=== PATIENT | male | born 1935 | race African-American/Black ===

== ENCOUNTER 2017-10-30 18:34 | Inpatient (IN) | payer MEDICARE, OTHER ==
[~2017-10-30 18:34] MED LIST: ISOVUE-370 76%-LOCM 1 ML ONE
[2017-10-30 18:51] LABS: #Eosinphils 0.1 thou/uL (0.0-0.7); #Lymphocytes 2.9 thou/uL (1.20-3.40); #Monocytes 0.7 thou/uL (0.11-0.59); #Neutrophils 4.3 thou/uL (1.40-6.50); %Basophils 0.6 % (0.0-1.0); %Lymphocytes 36.4 % (21.0-51.0); %Monocytes 8.3 % (0.0-10.0); %Neutrophils 53.6 % (42.0-75.0); Hemoglobin 11.6 g/dL (14.0-18.0); Mean Corpuscular HGB CONC 32.7 g/dL (32.0-36.0); Mean Corpuscular Hemoglobin 28.2 pg (27.0-31.0); Mean Corpuscular Volume 86.5 fl (80.0-94.0); Mean Platelet Volume 9.6 fL (7.4-10.4); Platelet Count 218 thou/uL (130-400); RBC Distribution Width 14.3 % (11.5-14.5); Red Blood Cell (RBC) Count 4.12 mill/uL (4.70-6.10)
[2017-10-30 18:58] LABS: INR-International Normal Ratio 1.1; Prothrombin Time 14.5 SEC (12.0-14.7)
[2017-10-30 19:05] LABS: ALT (SGPT) 27 U/L (8-55); AST (SGOT) 23 U/L (5-34); Albumin 4.1 g/dL (3.4-4.8); Alkaline Phosphatase 164 U/L (40-150); Anion Gap 14 mmol/L (10-20); BUN (Urea Nitrogen) 11 mg/dL (8.4-25.7); Bilirubin, Total 0.3 mg/dL (0.2-1.2); Calc. Creatinine Clearance 0 mL/min (70-130); Calcium 9.3 mg/dL (7.8-10.44); Carbon Dioxide 25 mmol/L (23-31); Chloride 99 mmol/L (98-107); Estimated GFR-MDRD 68; Globulin 3.5 g/dL (2.4-3.5); Potassium 4.5 mmol/L (3.5-5.1); Protein, Total 7.6 g/dL (5.8-8.1); Sodium 133 mmol/L (136-145)
[2017-10-30 19:08] LABS: PTT 20.5 SEC (22.9-36.1)
[2017-10-30 19:10] LABS: CKMB 1.6 ng/mL (0-6.6); Glucose 578 mg/dL (83-110); Troponin I 0.013 ng/mL (< 0.028)
--- NOTE | 2017-10-30 19:49 | CT ---
NONCONTRAST CT HEAD 10/30/17 HISTORY: Stroke activation, slurred speech, dysphasia, mental status change. Right facial droop. COMPARISON: 12/30/09. FINDINGS: There is decreased attenuation of the periventricular white matter which is nonspecific but likely re flective of chronic small vessel ischemic changes. There is a subcentimeter low density focus in the left thalamus suggesting a lacunar infarction of indeterminate age. There is focus of decreased atten uation inferior aspect of each basal ganglia also present on prior exam probably related to small rem ote lacunar infarctions. There is no evidence of an acute cortical infarction, hemorrhage, mass effec t or midline shift. There is mild cerebral volume loss. The ventricular system is normal in size, sha pe and position for the degree of sulcal atrophy. The visualized paranasal sinuses and mastoid air cells are clear. The calvarial structures are intact . IMPRESSION: 1. Small lacunar infarction left thalamus of indeterminate age. 2. No acute cortical infarction or hemorrhage. 3. Cerebral volume loss. Above findings discussed with Dr. Valenzuela in the Emergency Department on 10/30/17 at 1849 hours. POS: [facility]
[2017-10-30 20:16] LABS: Bilirubin Negative (Negative); Blood, Urine Trace (Negative); Clarity CLEAR (Clear); Glucose, Urine (Dipstick) >=1000 mg/dL (Negative); Leukocyte Moderate (Negative); Nitrite Negative (Negative); Protein, Urine (Dipstick) Negative (Neg-Trace); Specific Gravity, Urine 1.037 (1.002-1.036); Urobilinogen 0.2 mg/dL (0.2-1.0); pH, Urine 7.5 (5.0-9.0)
[2017-10-30 20:18] LABS: Bacteria/HPF None Seen HPF (None Seen); Hyaline Casts/LPF 0-3 HYALINE CAST LPF (0-3 Hyaline); RBC/HPF 0-3 HPF (0-3); Squamous Epithelial 0-3 HPF (0-3)
[2017-10-30 20:19] LABS: Yeast-AUWi Flag 598.2 (0-25.0)
--- NOTE | 2017-10-30 20:25 | RAD ---
PORTABLE AP CHEST X-RAY: 10/30/17 HISTORY: Altered mental status. Stroke alert. COMPARISON: 12/30/09. FINDINGS: The cardiac silhouette is magnified by projection but does appear mildly enlarged but is stable in si ze from prior study. Thoracic aorta is ectatic. Pulmonary vasculature is within normal limits and the lungs are clear. Degenerative changes are present in the spine. No other interval change. IMPRESSION: 1. No acute cardiopulmonary process. 2. Mild cardiomegaly. 3. Ectasia of the thoracic aorta. POS: [facility]
[2017-10-30 20:26] LABS: Yeast-All Forms 3+ HPF (None Seen)
[2017-10-30 20:35] LABS: Base Excess-Venous 0.9 mmol/L (0 (+/- 2.5)); Bicarbonate (HCO3v) 26.3 mmol/L (1.0-85.0); Calcium, Ionized 1.02 mmol/L (1.12-1.32); Hemoglobin - Calc 13.4 g/dL (12.0-18.0); O2 Tension (PvO2) 19.2 mmHg (35.0-45.0); Potassium 4.1 mmol/L (3.4-4.7); T. Carbon Dioxide 27.7 mmol/L (1.0-85.0); pH (Venous) 7.386 (7.35-7.45); vO2 Saturation-calc 28.8 % (94-98)
[2017-10-30] MEDS ORDERED: Labetalol HCl 100 MG/20 ML VIAL ONE (20:48)
[2017-10-30] MEDS ORDERED: Insulin Regular 300 UNITS/3 ML VIAL ONE (21:21)
[2017-10-31 00:06] VITALS: BMI 33.4
[2017-10-31] MEDS ORDERED: Dextrose 50% Abboject 50 ML SYRINGE SLOW IVP PRN (01:44)
[2017-10-31] MEDS ORDERED: Dextrose 5% in Water 1,000 ML IV PRN (01:44)
[2017-10-31] MEDS ORDERED: Insulin Regular 300 UNITS/3 ML VIAL SC PRN (01:44)
[2017-10-31] MEDS ORDERED: Sodium Chloride 0.45% 1,000 ML IV SCH (01:45)
--- NOTE | 2017-10-31 02:12 | PDOC.FPRHP ---
- History of Present Illness Chief Complaint: AMS History of Present Illness: Patient is a pleasant 82yo AA M with PMH of CVA (2014), HTN, HLD, Alzheimers Dementia, Seizure DO, and prostate cancer diagnosed 1 year ago presents with AMS. Family reports patient has been steadily declining in his memory over the past 2 years, but since October 10 has made a rapid decline. He was seen by his PCP for acute decline and started on Risperdal, but per granddelano who is skin therapist, there has been no change since starting this medication. In fact, he has started drooling and becoming more confused. Family reports his mentation waxes and wanes. Due to patients difficult behavior with confusion ( trying to leave the house at night, pulling out drawers and looking through them , becoming lost, getting agitated), patient is staying with sister at this time. This morning around 8 or 9am, sister noticed some slowed and slurred speech which brought them to the ED. On arrival to the ED, a mild LT sided facial droop was noticed. Family reports some increased urination as well as the confusion, and slurred speech. They deny fevers, cough, increased thirst, recent prostate instrumentation, constipation, N/V, and diarrhea. ED Course: In the ED, patient was given ASA 324mg, Labetalol 20mg, and had a negative brain CT and CTA. He was found to have a blood sugar of 578 and received 8units of Humulin R and 1L NS. He was also given 1g Rocephin. - Allergies/Adverse Reactions Allergies Allergy/AdvReac Type Severity Reaction Status Date / Time No Known Allergies Allergy Unverified 10/31/17 00:21 - Home Medications Medication Instructions Recorded Confirmed Type Amlodipine Besylate [amLODIPine 10 mg PO DAILY 10/31/17 10/31/17 History Besylate] Atorvastatin Calcium [Lipitor] 10 mg PO DAILY 10/31/17 10/31/17 History Celecoxib 200 mg PO BID 10/31/17 10/31/17 History Cetirizine HCl [Zyrtec] 10 mg PO DAILY 10/31/17 10/31/17 History Finasteride 5 mg PO HS 10/31/17 10/31/17 History Furosemide [Lasix] 20 mg PO DAILY 10/31/17 10/31/17 History Levetiracetam [levETIRAcetam] 500 mg PO Q12H 10/31/17 10/31/17 History Metoprolol Tartrate 50 mg PO BID 10/31/17 10/31/17 History Pantoprazole [Protonix] 40 mg PO DAILY 10/31/17 10/31/17 History Phenytoin Sodium Extended 3 tab PO HS 10/31/17 10/31/17 History [Dilantin] Potassium Chloride [Klor-Con 10] 1 tab PO DAILY 10/31/17 10/31/17 History Tamsulosin HCl [Flomax] 0.4 mg PO HS 10/31/17 10/31/17 History Telmisartan 80 mg PO DAILY 10/31/17 10/31/17 History risperiDONE [RisperDAL] 0.5 mg PO BID 10/31/17 10/31/17 History - History PMHx: 1. Alzheimers Dementia 2. Hx of Meningitis 3. Hx of CVA (2014) 4. HLD 5. HTN 6. Prostate Cancer 7. Seizure D/O PSHx: 1. L hip 2. Carpal Tunnel 3. Prostate Biopsy FHx: unkown Social: Denies tobacco, etoh, and drug use. - Review of Systems ROS unobtainable: due to mental status (difficult to obtain from patient. ROS obtained from family.) General: denies: fever/chills, weight/appetite/sleep changes, night sweats, fatigue ENT: denies: nasal congestion, rhinorrhea Respiratory: denies: cough, congestion, shortness of breath Cardiovascular: denies: chest pain, palpitation Gastrointestinal: denies: nausea, vomiting, diarrhea, constipation, abdominal pain Genitourinary: denies: incontinence Skin: denies: rashes, lesions Musculoskeletal: denies: pain, tenderness, stiffness, swelling Neurological: denies: numbness, syncope Psychological: denies: anxiety, depression - Vital signs BP: 224/86 HR: 80 RR: 26 Tmax: 97.6 Pox: 98% on RA Wt: 108.5kg - Physical Exam -Constitutional: AOx2, fidgeting with cords, hospital gown, and bed railing, unable to sit still , hard of hearing even with hearing aids in place, follows commands after repeating greater than 3-4 times, slowed slurred speech. HEENT: normocephalic and atraumatic, PERRLA, EOMI, no scleral icterus, grossly normal vision, MMM Neck: supple, FROM Heart: RRR, normal S1/S2, pulses present Lungs: CTAB, no respiratory distress, no wheezing Abdomen: soft, non-tender -Abdomen: Rectal Exam: stool in rectal vault, no tenderness with palpation of the prostate Musculoskeletal: normal structure, normal tone Neurological: no focal deficit, CN II-XII intact, normal sensation -Neurological: strength 5/5 in UE and LE, neuro exam difficult to perform as patient has trouble hearing directions and following directions. No facial droop noted. Skin: no rash/lesions, capillary refill <2 seconds Heme/Lymphatic: no unusual bruising or bleeding -Psychiatric: Confused but no agitation. FMR H&P: Results - Labs Result Diagrams: 10/30/17 18:46 10/31/17 03:04 Lab results: WBC 8.0 thou/uL (4.8-10.8) 10/30/17 18:46 Hgb 11.6 g/dL (14.0-18.0) L 10/30/17 18:46 Hct 35.6 % (42.0-52.0) L 10/30/17 18:46 MCV 86.5 fl (80.0-94.0) 10/30/17 18:46 Plt Count 218 thou/uL (130-400) 10/30/17 18:46 Neutrophils % 53.6 % (42.0-75.0) 10/30/17 18:46 VBG pCO2 44.0 mmHg (41.0-51.0) 10/30/17 20:34 VBG pO2 19.2 mmHg (35.0-45.0) L 10/30/17 20:34 Sodium 133 mmol/L (136-145) L 10/30/17 18:46 Potassium 4.5 mmol/L (3.5-5.1) 10/30/17 18:46 Chloride 99 mmol/L (98-107) 10/30/17 18:46 Carbon Dioxide 25 mmol/L (23-31) 10/30/17 18:46 BUN 11 mg/dL (8.4-25.7) 10/30/17 18:46 Creatinine 1.23 mg/dL (0.6-1.3) 10/30/17 18:46 Glucose 578 mg/dL (83-110) H* 10/30/17 18:46 Calcium 9.3 mg/dL (7.8-10.44) 10/30/17 18:46 Total Bilirubin 0.3 mg/dL (0.2-1.2) 10/30/17 18:46 AST 23 U/L (5-34) 10/30/17 18:46 ALT 27 U/L (8-55) 10/30/17 18:46 Alkaline Phosphatase 164 U/L (40-150) H 10/30/17 18:46 CK-MB (CK-2) 1.6 ng/mL (0-6.6) 10/30/17 18:46 Serum Total Protein 7.6 g/dL (5.8-8.1) 10/30/17 18:46 Albumin 4.1 g/dL (3.4-4.8) 10/30/17 18:46 Urine Ketones Trace mg/dL (Negative) H 10/30/17 19:57 Urine Blood Trace (Negative) H 10/30/17 19:57 Urine Nitrite Negative (Negative) 10/30/17 19:57 Ur Leukocyte Esterase Moderate (Negative) H 10/30/17 19:57 Urine RBC 0-3 HPF (0-3) 10/30/17 19:57 Urine WBC 11-20 HPF (0-3) H 10/30/17 19:57 Ur Squamous Epith Cells 0-3 HPF (0-3) 10/30/17 19:57 Urine Bacteria None Seen HPF (None Seen) 10/30/17 19:57 - EKG Interpretation EKG: normal sinus rhythm - Radiology Interpretation CT scan - head Status: image reviewed by me, report reviewed by me Additional comment: Small lacunar infarct of thalamus, age indeterminate and overall cerebral volume loss. CTA head and neck pending. Chest x-ray Status: image reviewed by me, report reviewed by me Additional comment: CXR with no acute findings, only ectasia of thoracic aorta and mild cardiomegaly FMR H&P: A/P - Problem List (1) Altered mental status Current Visit: Yes Status: Acute Code(s): R41.82 - ALTERED MENTAL STATUS, UNSPECIFIED (2) Hyperglycemia Current Visit: Yes Status: Acute Code(s): R73.9 - HYPERGLYCEMIA, UNSPECIFIED (3) Pyuria, sterile Current Visit: Yes Status: Acute Code(s): N39.0 - URINARY TRACT INFECTION, SITE NOT SPECIFIED (4) Alzheimer's dementia Current Visit: Yes Status: Chronic Code(s): G30.9 - ALZHEIMER'S DISEASE, UNSPECIFIED; F02.80 - DEMENTIA IN OTH DISEASES CLASSD ELSWHR W/O BEHAVRL DISTURB (5) Seizure disorder Current Visit: Yes Status: Chronic Code(s): G40.909 - EPILEPSY, UNSP, NOT INTRACTABLE, WITHOUT STATUS EPILEPTICUS (6) History of CVA (cerebrovascular accident) Current Visit: Yes Status: Chronic Code(s): Z86.73 - PRSNL HX OF TIA (TIA), AND CEREB INFRC W/O RESID DEFICITS (7) Hyperlipidemia Current Visit: Yes Status: Chronic Code(s): E78.5 - HYPERLIPIDEMIA, UNSPECIFIED (8) Hypertension Current Visit: Yes Status: Chronic Code(s): I10 - ESSENTIAL (PRIMARY) HYPERTENSION (9) Prostate cancer Current Visit: Yes Status: Chronic Code(s): C61 - MALIGNANT NEOPLASM OF PROSTATE - Plan AMS - Unknown etiology at this point but Ddx includes acute delirium on chronic Alzheimers Disease, CVA vs TIA, Infection, Medication Side-effect, and Hyperglycemia induced Metabolic Encephalopathy. - Patient with no hx of DM, but per family diagnosed with pre-diabetes last year. Has never been on medication for pre-diabetes. A1c to evaluate. No anion gap, but will check beta-hydroxybutyrate. S/p 8units of Humulin R, will get accuchecks q4h and start moderate SSI. - Blood cx, Urine cx pending. S/p 1g Rocephin. No signs of infection at this time. Will continue to monitor and if becomes febrile start broad spectrum abx - CThead only with old CVA, CTA negative. Will get MRI tomorrow. Patient without facial droop on exam, but does have significant slowed, slurred speech, a change from baseline per family. Will allow for permissive HTN for 24h. - Patient with new environment and waxing and waning confusion suggestive of at least a component of acute delirium. Will keep shades open during the day, limit monitors and lines, and reorient to prevent worsening delirium. - Patient with recent addition of Risperdal and family reports worsening since that time and facial drooling. Hold Risperdal and monitor. Hyperglycemia - as above Sterile Pyuria - no s/sx of infection, will get urine cx. HLD - continue home medication - FLP HTN - allow for permissive HTN for 24hrs then restart home meds Prostate CA - follows with outpatient urology Seizure DO - check keppra level - continue home keppra and phenytoin Alzheimers Disease Hx of CVA - should be on daily ASA Code status: Full PPx: lovenox FMR H&P: Upper Level - Pertinent history Mr. Donnelly is a pleasant 82yo AAM with PMHx of Alzheimers dementia, HTN, HLD, hx of CVA (3yrs ago) and prostate ca diagnosed about 1yr ago who presents with altered mental status. Daughter at bedside who reports that he has had worsening confusion since 10/10. Seen by PCP due to worsening confusion and started on Risperdal. He lives with granddaughter and talked with her via phone who states that she has not noticed any improvement since starting medication. In addition, family reports that his confusion waxes and wanes. He will be normal for 3-4 days and then he gets confused again. This AM, he started having difficulty with speech and then upon presentation to ED it was noticed that he had a LT sided facial droop. In the ED given: 1.Labetolol 20mg IV 2.1L bolus of NS 3.ASA 324mg 4.Humulin 8u 5.Rocephin 1g - Pertinent findings Gen: pleasant gentleman, hard of hearing, AAOx2 (himself and time) Eyes: EOMI, PERRL CV: S1 S2, RRR Lungs: CTAB Abd: nt/nd/bs+ Ext: slight edema BL Neuro: difficult to assess due to altered mentation but CN 2-12 intact, 5/5 BL UE/LE strength Glucose: 578 UA: mod leuks, WBC 11-20 CT Head: small lacunar infarct of thalamus indeter age, no acute infarction/ hemorrhage - Plan Date/Time: 10/31/17 0212 1. AMS likely 2/2 TIA vs. CVA vs. Delirium vs. worsening dementia vs. medication SE from Risperdal. Patient with 2yr hx of Alzheimers dementia and family reports worsening confusion since 10/10. Seen by PCP for further evaluation and started on Risperdal a few weeks ago. Mentation has not improved. Hx seems more consistent with delirium as they report waxing and waning. Patient was brought from his daughters home which is a new environment for him as he normally lives at home with his granddaughter. In addition, risperdal could be contributing to the picture. UA negative for infection. CT head negative for acute process but showed small lacunar thalamus infarct. CTA head/neck negative- report pending. Cont ASA and statin. Obtain echo and carotid dopplers. Allow for 24hrs permissive HTN. ABCD2 score of 5 placing patient at moderate risk for CVA. Obtain MRI. 2. Hypertensive urgency: allow for 24hrs permissive HTN for BP< 220/110. Re- start home meds after 24hrs. 3. Hyperglycemia: no diagnosis of diabetes though family reports he is borderline. Given humulin in ED. Obtain A1c and betahydroxy. Accuchecks ACHS and SSI. 4. Sterile pyuria: Pt given Rocephin in the ED for treatment of UTI; however, do not suspect infectious etiology as there are no nitrates or bacteria. Patient is asymptomatic. Hold abx until urine cx results. 5. Low TSH: obtain T3/T4. 6. Seizures: cont home meds 7. PPx: lovenox 8. Diet: HH/CC 9. Code status: Full I, Eleanor Ramírez, have evaluated this patient and agree with findings/ plan as outlined by design engineering intern resident. Pertinent changes/additions are listed here. Attending Addendum - Attending Addendum Date/Time: 10/31/17 1002 I personally evaluated the patient and discussed the management with Dr. Zapata. I agree with the History, Examination, Assessment and Plan documented above with any addition or exceptions noted below. The patient was admitted with altered mental status and reportedly had a facial droop in the ER. I did not see a facial droop but neuro exam was limited due being severely hard of hearing and thus not following commands well. The patient was noted to have significant hyperglycemia and is being started on medication. MRI results are pending this morning and echo will be done as well. Hold antipsychotics. 3+ yeast on UA, will treat.
[2017-10-31 03:19] LABS: Hemoglobin A1c 11.2 % (4.0-6.0)
[2017-10-31 03:29] LABS: Anion Gap 13 mmol/L (10-20); BUN (Urea Nitrogen) 7 mg/dL (8.4-25.7); Calc. Creatinine Clearance 100 mL/min (70-130); Calcium 9.1 mg/dL (7.8-10.44); Carbon Dioxide 25 mmol/L (23-31); Chloride 100 mmol/L (98-107); Estimated GFR-MDRD Greater than 90; Glucose 295 mg/dL (83-110); Potassium 3.6 mmol/L (3.5-5.1); Sodium 134 mmol/L (136-145)
[2017-10-31] MEDS: HumaLOG 300 UNITS/3 ML VIAL SC PRN ×3 (06:19→17:08)
[2017-10-31] MEDS: Sodium Chloride 0.9% 1,000 ML IV SCH ×4 (06:19→23:40)
[2017-10-31 06:33] LABS: Cardiac Risk 3.3 (Less than 4.5)
--- NOTE | 2017-10-31 07:40 | CT ---
CT ANGIOGRAM HEAD WITH IV CONTRAST AND 3D RECONSTRUCTIONS CT ANGIOGRAM NECK WITH IV CONTRAST AND 3D RECONSTRUCTIONS 10/30/17 HISTORY: Slurred speech, dysphasia, mental status changes, right facial droop. CT ANGIOGRAM NECK: There is a normal arrangement of the great vessels at the aortic arch which do appear patent. Vascula r calcifications are seen in the aortic arch and involving the origin of the left subclavian artery. Mild atherosclerotic plaque involving these vessels. The proximal left common carotid artery and a po rtion of the left subclavian artery are not well visualized due to dense contrast within the left inn ominate and subclavian veins. The right subclavian artery is patent. The innominate artery and right common carotid artery are widely patient. The visualized left common carotid artery is patent as well . There is mild atherosclerotic calcifications involving the origins of each internal carotid artery, b ut the internal carotid arteries are patent bilaterally. The left vertebral artery demonstrates critical stenosis at the origin and proximally with only faint enhancement of a portion of the left vertebral artery and again at the level of the C2 vertebral bod y. The left vertebral artery is not well visualized. The right vertebral artery is dominant and paten t to the level of the skull base, but there is a prominent calcification seen in the most distal righ t vertebral artery near the origin of the basilar artery and this portion of the artery is not well v isualized. The basilar artery is irregular with mild degrees of narrowing related to atherosclerotic irregularity and narrowing. The bilateral posterior cerebral arteries do appear patent although small in size. The bilateral external carotid arteries are patent. The visualized upper lobes are clear. Multilevel degenerative changes are seen in the cervical spine. There is minimal mucosal thickening in the bilateral maxillary antra. Mastoid air cells are clear. No other findings. IMPRESSION: 1. 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 The right vertebra l artery is dominant and patent, but the most distal right vertebral artery is not visualized due den se and prominent vascular calcification. 2. Atherosclerotic irregularity and narrowing involving the basilar artery. 3. Patent bilateral internal carotid arteries. CT ANGIOGRAM BRAIN: FINDINGS: As described on CTA of the neck above, there is a dense vascular calcification involving the distal r ight vertebral artery with atherosclerotic narrowing involving the basilar artery. Posterior cerebral arteries are patent but are small in caliber. There are atherosclerotic vascular calcifications in the carotid siphons, but with narrowing involvin g the most proximal portion of the cavernous segment of the left internal carotid artery with what ap pears to be severe narrowing in this region. Most proximal portion of the cavernous segment of the le ft internal carotid artery near the junction with the petrous segment. There is flow distal to this a nd the remainder of the cavernous portion of the left internal carotid artery appears patent. The dis pratima right internal carotid artery is patent. The bilateral middle cerebral and anterior cerebral broderick mushtaq are patent. No aneurysm is seen within the limitations of the technique of this exam. IMPRESSION: 1. Focal severe stenosis involving the most proximal cavernous segment of the left internal hernandez tid artery with eccentric atherosclerotic plaque present. The distal right internal carotid artery is patent. 2. Atherosclerotic irregularity and narrowing involving the basilar artery. 3. Nonvisualization of a short segment of the most distal right vertebral artery due to a promin ent calcification. The left vertebral artery is not visualized at the base of the brain, and there is critical stenosis involving the origin of the proximal left vertebral artery noted on CTA of the nec k. 4. Patent bilateral middle cerebral and anterior cerebral arteries. 5. Above findings discussed with Dr. Valenzuela in the Emergency Department on 10/30/17 at 1929 hour s. POS: [facility]
[2017-10-31] MEDS ORDERED: Prevnar 13-Val Conj/PF 0.5 ML SYRINGE IM ONE (09:00)
[2017-10-31] MEDS: Acetaminophen 325 MG TAB PO PRN ×2 (10:37→14:36)
[2017-10-31] MEDS: metFORMIN 500 MG TAB PO SCH ×2 (10:38→17:08)
[2017-10-31] MEDS: Cetirizine HCl 10 MG TAB PO SCH (10:38)
[2017-10-31] MEDS: Enoxaparin Sodium 40 MG/0.4 ML SYRINGE SC SCH (10:38)
[2017-10-31] MEDS: Potassium Chloride 10 MEQ TAB PO SCH (10:38)
[2017-10-31] MEDS: levETIRAcetam 500 MG TAB PO SCH ×2 (10:39→22:42)
[2017-10-31] MEDS: Furosemide 20 MG TAB PO SCH (10:39)
--- NOTE | 2017-10-31 11:37 | MRI ---
BRAIN MRI WITHOUT CONTRAST: Date: 10/31/17 COMPARISON: None. HISTORY: Right-sided facial droop, slurred speech, dysphagia, and mental status changes. TECHNIQUE: Multiplanar, multisequence MR imaging of the brain obtained without contrast. FINDINGS: The diffusion-weighted imaging demonstrates no evidence for acute infarction. The axial gradient echo imaging demonstrates no evidence for intracranial hemorrhage. Arterial flow-v oids at the axial level of the skull base demonstrate an attenuated distal left vertebral artery whic h may be hypoplastic. Arterial flow-voids at the axial level of the skull base appear grossly unremar kable otherwise. There is extensive periventricular T2 and FLAIR hyperintensity, evidence of small vessel disease. Reg ional bone marrow signal intensity appears grossly unremarkable. There is degenerative change at the atlantoaxial interspace. Imaged paranasal sinuses/mastoid air cells appear grossly unremarkable. IMPRESSION: No evidence for acute infarction or intracranial hemorrhage. Small vessel disease. POS: [facility]
[2017-10-31] MEDS ORDERED: Fluconazole 100 MG TAB PO SCH (13:30)
[2017-10-31] MEDS ORDERED: Insulin Regular 300 UNITS/3 ML VIAL SC SCH ×2 (16:45→18:15)
[2017-10-31] MEDS: Atorvastatin Calcium 40 MG TAB PO SCH (22:42)
[2017-10-31] MEDS: Tamsulosin HCl 0.4 MG CAP PO SCH (22:42)
[2017-10-31] MEDS: Finasteride 5 MG TAB PO SCH (22:42)
[2017-11-01] MEDS: Sodium Chloride 0.9% 1,000 ML IV SCH ×2 (01:19→09:25)
[2017-11-01] MEDS ORDERED: hydrALAZINE 20 MG/ML VIAL SLOW IVP PRN (04:31)
[2017-11-01] MEDS ORDERED: Labetalol HCl 100 MG/20 ML VIAL SLOW IVP PRN (04:31)
[2017-11-01 05:44] LABS: Anion Gap 11 mmol/L (10-20); BUN (Urea Nitrogen) 6 mg/dL (8.4-25.7); Calc. Creatinine Clearance 110 mL/min (70-130); Calcium 8.7 mg/dL (7.8-10.44); Carbon Dioxide 22 mmol/L (23-31); Chloride 107 mmol/L (98-107); Estimated GFR-MDRD Greater than 90; Glucose 182 mg/dL (83-110); Potassium 3.4 mmol/L (3.5-5.1); Sodium 137 mmol/L (136-145)
--- NOTE | 2017-11-01 07:16 | PDOC.FM ---
- Subjective Subjective: Pt doing well. Denies any complaints. Denies any pain. Pt A&Ox1. Sister in the room and says that he is back to his baseline and doing much better. Denies any acute events overnight. No other questions or concerns at this time. - Objective MAR Reviewed: Yes Vital Signs & Weight: Vital Signs (12 hours) Temp Pulse Resp BP Pulse Ox 11/01/17 04:50 92 11/01/17 04:25 98.4 F 92 16 200/75 H 95 11/01/17 00:00 97.6 F 89 22 H 207/83 H 99 10/31/17 20:00 97.6 F 89 22 H 203/83 H 99 Result Diagrams: 10/30/17 18:46 11/01/17 05:19 Radiology Reviewed by me: Yes (Brain MRI negative) <Wilfred Granger - Last Filed: 11/01/17 07:15> - Objective Vital Signs & Weight: Vital Signs (12 hours) Temp Pulse Resp BP BP BP Pulse Ox 11/01/17 11:45 98 F 86 18 158/74 H 95 11/01/17 10:50 160/64 H 11/01/17 09:32 111 H 193/77 H 11/01/17 09:29 111 H 192/77 H 11/01/17 08:45 98.3 F 111 H 16 96 11/01/17 08:00 98.3 F 93 16 157/93 H 96 11/01/17 04:50 92 11/01/17 04:25 98.4 F 92 16 200/75 H 95 Result Diagrams: 10/30/17 18:46 11/01/17 05:19 <Rosa M Schwarz - Last Filed: 11/01/17 12:43> Phys Exam - Physical Examination Constitutional: NAD HEENT: PERRLA, moist MMs Neck: no nodes, no JVD, full ROM Respiratory: no wheezing, no rales, no rhonchi, clear to auscultation bilateral Cardiovascular: RRR, no significant murmur, no rub Gastrointestinal: soft, non-tender, no distention, positive bowel sounds Musculoskeletal: no edema, pulses present Neurological: non-focal, normal sensation, moves all 4 limbs hard to assess because he has hard of hearing, no facial droop Lymphatic: no nodes Psychiatric: normal affect Skin: no rash, normal turgor, cap refill <2 seconds <Wilfred Granger - Last Filed: 11/01/17 07:15> Dx/Plan (1) Altered mental status Code(s): R41.82 - ALTERED MENTAL STATUS, UNSPECIFIED Status: Acute (2) Diabetes mellitus Code(s): E11.9 - TYPE 2 DIABETES MELLITUS WITHOUT COMPLICATIONS Status: Acute (3) Hyperglycemia Code(s): R73.9 - HYPERGLYCEMIA, UNSPECIFIED Status: Acute (4) Alzheimer's dementia Code(s): G30.9 - ALZHEIMER'S DISEASE, UNSPECIFIED; F02.80 - DEMENTIA IN OTH DISEASES CLASSD ELSWHR W/O BEHAVRL DISTURB Status: Chronic (5) History of CVA (cerebrovascular accident) Code(s): Z86.73 - PRSNL HX OF TIA (TIA), AND CEREB INFRC W/O RESID DEFICITS Status: Chronic (6) Hyperlipidemia Code(s): E78.5 - HYPERLIPIDEMIA, UNSPECIFIED Status: Chronic (7) Hypertension Code(s): I10 - ESSENTIAL (PRIMARY) HYPERTENSION Status: Chronic - Plan Plan: AMS 2/2 Hyperglycemia and Alzheimers Dementia - MRI negative. CTA shows no acute blockage. Acute stroke ruled out. -Was on risperdal and might of exacerbated some delirium per Family. Have d/c at this time. -Pt blood sugar elevated in 500. A1c-11. Newly dx diabetic. Started on metformin and SSI. Required 35 extra units of insulin yesterday due to elevated sugars. Increased metformin to 1000 mg dose. May need insulin at home. Due to alzheimers and caregiver may try oral medication at this time. -Mentation much improved this morning. -Yeast positive in urine. Yeast UTI could of exacerbated delirium as well. Tx with 1x dose diflucan Hyperglycemia 2/2 newly diagnosed DMII - Continue Mod SSI. Increased metformin -Will discuss need for insulin. Will try and tx with oral medications due to patients alzhemers Yeast UTI - no s/sx of infection, -yeast positive in UA. tx with Diflucan -Urine Cx NGTD HLD - continue home medication - FLP HTN -allowed for permissive HTN as concern for stroke. Stroke ruled out. BP elevated. restarted home medications at this time. Will follow BP and adjust as needed Prostate CA - follows with outpatient urology Seizure DO - check keppra level- stable - continue home keppra and phenytoin Alzheimers Disease -Possibly delirous due to risperdal and alzheimers. Better today. Hx of CVA - should be on daily ASA Code status: Full PPx: lovenox <Wilfred Granger - Last Filed: 11/01/17 07:15> (1) Altered mental status Code(s): R41.82 - ALTERED MENTAL STATUS, UNSPECIFIED Status: Acute (2) Hyperglycemia Code(s): R73.9 - HYPERGLYCEMIA, UNSPECIFIED Status: Acute (3) Pyuria, sterile Code(s): N39.0 - URINARY TRACT INFECTION, SITE NOT SPECIFIED Status: Acute (4) Alzheimer's dementia Code(s): G30.9 - ALZHEIMER'S DISEASE, UNSPECIFIED; F02.80 - DEMENTIA IN OTH DISEASES CLASSD ELSWHR W/O BEHAVRL DISTURB Status: Chronic (5) Seizure disorder Code(s): G40.909 - EPILEPSY, UNSP, NOT INTRACTABLE, WITHOUT STATUS EPILEPTICUS Status: Chronic (6) History of CVA (cerebrovascular accident) Code(s): Z86.73 - PRSNL HX OF TIA (TIA), AND CEREB INFRC W/O RESID DEFICITS Status: Chronic (7) Hyperlipidemia Code(s): E78.5 - HYPERLIPIDEMIA, UNSPECIFIED Status: Chronic (8) Hypertension Code(s): I10 - ESSENTIAL (PRIMARY) HYPERTENSION Status: Chronic (9) Prostate cancer Code(s): C61 - MALIGNANT NEOPLASM OF PROSTATE Status: Chronic <Rosa M Schwarz - Last Filed: 11/01/17 12:43> Attending Addendum - Attending Addendum Date/Time: 11/01/17 1242 I personally evaluated the patient and discussed the management with Dr. Granger. I agree with the History, Examination, Assessment and Plan documented above with any addition or exceptions noted below. MRI was negative for stroke. I suspect ams was 2/2 hypoglycemia and yeast uti. Will treat with fluconazole. Adjusting metformin dosing. Pt's sister will be his caregiver and wants to try to avoid having to give him insulin at home. Will try to maximize his oral therapy. Pt has thickened toenails. Will need an outpt podiatry appt. <Rosa M Schwarz - Last Filed: 11/01/17 12:43>
[2017-11-01] MEDS ORDERED: Potassium Chloride 20 MEQ TAB PO SCH (07:30)
[2017-11-01] MEDS: metFORMIN 500 MG TAB PO SCH ×2 (09:28→17:27)
[2017-11-01] MEDS: Metoprolol Tartrate 50 MG TAB PO SCH ×2 (09:29→21:00)
[2017-11-01] MEDS: Furosemide 20 MG TAB PO SCH (09:29)
[2017-11-01] MEDS: Potassium Chloride 10 MEQ TAB PO SCH (09:29)
[2017-11-01] MEDS: Amlodipine 10 MG TAB PO SCH (09:29)
[2017-11-01] MEDS: levETIRAcetam 500 MG TAB PO SCH ×2 (09:29→20:59)
[2017-11-01] MEDS: HumaLOG 300 UNITS/3 ML VIAL SC PRN ×3 (09:30→17:27)
[2017-11-01] MEDS: Enoxaparin Sodium 40 MG/0.4 ML SYRINGE SC SCH (09:31)
[2017-11-01] MEDS ORDERED: Fluconazole 100 MG TAB PO SCH ×2 (12:52→13:00)
[2017-11-01] MEDS ORDERED: Insulin Regular 300 UNITS/3 ML VIAL SC SCH (13:00)
--- NOTE | 2017-11-01 13:02 | PDOC.EVN ---
Event Note - Event Note Event Note: Called regarding patient's accucheck >500 x2 today Increased glipizide to 10mg daily one time dose of 10U humulin R Accuchecks q2 hours until supper time
[2017-11-01] MEDS: Cetirizine HCl 10 MG TAB PO SCH (13:10)
[2017-11-01] MEDS ORDERED: HumaLOG 300 UNITS/3 ML VIAL SC SCH (15:45)
--- NOTE | 2017-11-01 16:15 | PDOC.EVN ---
Event Note - Event Note Event Note: Called regarding persistently elevated glucose, last check >400 Instructed nursing to give 15U more of insulin Metformin was increased to 1,000 BID, increased glipizide to 10mg Patient has gotten 39U SSI today Will consider starting levemir after 6pm check
[2017-11-01] MEDS: Finasteride 5 MG TAB PO SCH (20:59)
[2017-11-01] MEDS: Tamsulosin HCl 0.4 MG CAP PO SCH (20:59)
[2017-11-01] MEDS: Atorvastatin Calcium 40 MG TAB PO SCH (21:00)
[2017-11-01] MEDS ORDERED: Insulin Detemir 100 UNITS/ML 5 UNITS in Pre-Filled Syringe 1 EACH SC SCH (21:00)
[2017-11-02] MEDS: HumaLOG 300 UNITS/3 ML VIAL SC PRN ×4 (00:41→19:14)
[2017-11-02 05:23] LABS: Anion Gap 12 mmol/L (10-20); BUN (Urea Nitrogen) 6 mg/dL (8.4-25.7); Calc. Creatinine Clearance 115 mL/min (70-130); Calcium 8.5 mg/dL (7.8-10.44); Carbon Dioxide 23 mmol/L (23-31); Chloride 108 mmol/L (98-107); Estimated GFR-MDRD Greater than 90; Glucose 183 mg/dL (83-110); Potassium 3.5 mmol/L (3.5-5.1); Sodium 139 mmol/L (136-145)
--- NOTE | 2017-11-02 08:18 | PDOC.FM ---
- Subjective Subjective: The patient is doing well this AM. Per his sister, he is back at his baseline mental status. He did not sleep well last night. He is eating well and denies any CP, SOB. - Objective MAR Reviewed: Yes Vital Signs & Weight: Vital Signs (12 hours) Temp Pulse Resp BP BP Pulse Ox 11/02/17 07:45 98.3 F 75 16 201/78 H 96 11/02/17 03:56 98.1 F 80 20 140/71 95 11/01/17 23:19 99.2 F 83 18 134/53 L 95 11/01/17 21:10 84 162/69 H Weight Weight 110.677 kg I&O: 11/01/17 11/02/17 11/03/17 06:59 06:59 06:59 Intake Total 610 Balance 610 Result Diagrams: 10/30/17 18:46 11/02/17 04:45 <Windy Shea - Last Filed: 11/02/17 08:16> - Objective Vital Signs & Weight: Vital Signs (12 hours) Temp Pulse Pulse Pulse Resp BP BP 11/02/17 11:41 98.3 F 75 20 11/02/17 08:43 93 86 199/79 H 11/02/17 08:30 98.3 F 75 20 11/02/17 08:25 75 190/100 H 11/02/17 07:45 98.3 F 75 16 11/02/17 03:56 98.1 F 80 20 BP BP Pulse Ox 11/02/17 11:41 176/85 H 98 11/02/17 08:43 180/89 H 11/02/17 08:30 98 11/02/17 08:25 11/02/17 07:45 201/78 H 96 11/02/17 03:56 140/71 95 Weight Weight 110.677 kg I&O: 11/01/17 11/02/17 11/03/17 06:59 06:59 06:59 Intake Total 610 Balance 610 Result Diagrams: 10/30/17 18:46 11/02/17 04:45 <Boy Lorenzo - Last Filed: 11/02/17 13:54> Phys Exam - Physical Examination Constitutional: NAD HEENT: moist MMs Respiratory: no wheezing, no rales, no rhonchi, clear to auscultation bilateral Cardiovascular: RRR, no significant murmur, no rub Gastrointestinal: soft, non-tender, no distention, positive bowel sounds Musculoskeletal: pulses present, edema present (trace pitting edema bilaterally) Neurological: non-focal, moves all 4 limbs Deviation from normal: A&Ox1 Skin: normal turgor <Windy Shea - Last Filed: 11/02/17 08:16> Dx/Plan (1) Altered mental status Code(s): R41.82 - ALTERED MENTAL STATUS, UNSPECIFIED Status: Acute QualifierTitle: Altered mental status type: unspecified Qualified Code(s) : R41.82 - Altered mental status, unspecified (2) Amy UTI Code(s): B37.49 - OTHER UROGENITAL CANDIDIASIS Status: Acute (3) Diabetes mellitus Code(s): E11.9 - TYPE 2 DIABETES MELLITUS WITHOUT COMPLICATIONS Status: Acute QualifierTitle: Diabetes mellitus type: type 2 Diabetes mellitus scientific laboratory supervisor insulin use: without scientific laboratory supervisor use Diabetes mellitus complication status : with unspecified complications Qualified Code(s): E11.8 - Type 2 diabetes mellitus with unspecified complications (4) Hyperglycemia Code(s): R73.9 - HYPERGLYCEMIA, UNSPECIFIED Status: Acute (5) Alzheimer's dementia Code(s): G30.9 - ALZHEIMER'S DISEASE, UNSPECIFIED; F02.80 - DEMENTIA IN OTH DISEASES CLASSD ELSWHR W/O BEHAVRL DISTURB Status: Chronic QualifierTitle: Alzheimer's disease onset: late-onset Dementia behavioral disturbance: without behavioral disturbance Qualified Code(s): G30.1 - Alzheimer's disease with late onset; F02.80 - Dementia in other diseases classified elsewhere without behavioral disturbance; F02.80 - Dementia in other diseases classified elsewhere without behavioral disturbance; F02.80 - Dementia in other diseases classified elsewhere without behavioral disturbance (6) History of CVA (cerebrovascular accident) Code(s): Z86.73 - PRSNL HX OF TIA (TIA), AND CEREB INFRC W/O RESID DEFICITS Status: Chronic (7) Hyperlipidemia Code(s): E78.5 - HYPERLIPIDEMIA, UNSPECIFIED Status: Chronic QualifierTitle: Hyperlipidemia type: other hyperlipidemia Qualified Code( s): E78.4 - Other hyperlipidemia (8) Hypertension Code(s): I10 - ESSENTIAL (PRIMARY) HYPERTENSION Status: Chronic QualifierTitle: Hypertension type: essential hypertension Qualified Code( s): I10 - Essential (primary) hypertension (9) Prostate cancer Code(s): C61 - MALIGNANT NEOPLASM OF PROSTATE Status: Chronic (10) Seizure disorder Code(s): G40.909 - EPILEPSY, UNSP, NOT INTRACTABLE, WITHOUT STATUS EPILEPTICUS Status: Chronic - Plan Plan: Encephalopathy 2/2 Hyperglycemia and Alzheimer's Dementia Acute stroke ruled out with MRI negative and CTA shows no acute blockage. Was recently started on risperdal and this could have exacerbated some delirium per Family. Pt blood sugar elevated in 500's, A1c-11 - Newly dx diabetic. Required 34 extra units of short acting insulin yesterday due to elevated sugars and got 5 U levemir last night. Yeast positive in urine. Amy UTI could of exacerbated delirium as well. Mentation at patient's baseline. -Hold Risperdol -Continue SSI, Glipizide, Metformin - pt will likely need to be on long acting insulin, will discuss with caregiver -Diflucan Hyperglycemia 2/2 newly diagnosed DMII -Continue Mod SSI. Increased metformin and glipizide -Will discuss need for long acting insulin. Amy UTI -Diflucan HLD -continue home meds HTN -Continue home meds Prostate CA -follows with outpatient urology Seizure DO Keppra level stable -continue home keppra and phenytoin Alzheimer's Disease Possibly delirious due to risperdol and Alzheimer's -Hold risperdol Hx of CVA -started daily aspirin <Windy Shea - Last Filed: 11/02/17 08:16> Attending Addendum - Attending Addendum Date/Time: 11/02/17 1962 I personally evaluated the patient and discussed the management with Dr. Shea. I agree with the History, Examination, Assessment and Plan documented above with any addition or exceptions noted below. Patient denies complaints this morning. Team has been attempting to control his DM with oral medications. However, on top of his oral meds, he required 34 units of sliding scale insulin to keep his sugars just in the 400 range. I do not think it is in patients best interest to continue only oral medications for control, and so we will begin Levemir therapy today and monitor and escalate therapy as needed. He has some isolated episodes of systolic HTN, but most BP readings are near goal for his age. Will continue current doses of anti-htn meds. Will try to arrange placement for patient at Rehab versus SNF to improve strength and work on med titration. <Boy Lorenzo - Last Filed: 11/02/17 13:54>
[2017-11-02] MEDS: Metoprolol Tartrate 50 MG TAB PO SCH ×2 (08:25→20:56)
[2017-11-02] MEDS: Fluconazole 100 MG TAB PO SCH (08:25)
[2017-11-02] MEDS: Amlodipine 10 MG TAB PO SCH (08:25)
[2017-11-02] MEDS: metFORMIN 500 MG TAB PO SCH ×2 (08:27→17:22)
[2017-11-02] MEDS: levETIRAcetam 500 MG TAB PO SCH ×2 (08:27→20:56)
[2017-11-02] MEDS: Potassium Chloride 10 MEQ TAB PO SCH (08:27)
[2017-11-02] MEDS: Enoxaparin Sodium 40 MG/0.4 ML SYRINGE SC SCH (08:28)
[2017-11-02] MEDS: Furosemide 20 MG TAB PO SCH (08:28)
[2017-11-02] MEDS: Cetirizine HCl 10 MG TAB PO SCH (08:29)
[2017-11-02] MEDS: Chlorthalidone 25 MG TAB PO SCH (13:11)
[2017-11-02] MEDS: Finasteride 5 MG TAB PO SCH (20:56)
[2017-11-02] MEDS: Tamsulosin HCl 0.4 MG CAP PO SCH (20:56)
[2017-11-02] MEDS: Atorvastatin Calcium 40 MG TAB PO SCH (20:56)
[2017-11-02] MEDS ORDERED: Insulin Detemir 100 UNITS/ML 20 UNITS in Pre-Filled Syringe 1 EACH SC SCH (21:00)
[2017-11-03] MEDS: HumaLOG 300 UNITS/3 ML VIAL SC PRN ×3 (00:03→09:12)
[2017-11-03 05:55] LABS: Anion Gap 12 mmol/L (10-20); BUN (Urea Nitrogen) 8 mg/dL (8.4-25.7); Calc. Creatinine Clearance 114 mL/min (70-130); Carbon Dioxide 25 mmol/L (23-31); Chloride 104 mmol/L (98-107); Estimated GFR-MDRD Greater than 90; Glucose 183 mg/dL (83-110); Potassium 3.4 mmol/L (3.5-5.1); Sodium 138 mmol/L (136-145)
--- NOTE | 2017-11-03 08:29 | PDOC.FM ---
- Subjective Subjective: Patient doing well this AM. He reports no CP, no SOB. His sister reports that he is at his mental baseline. He is tolerating PO well. He does report a burning feeling in his hands and legs down to his feet that started the day before yesterday. It comes and goes. He says that it isn't painful though. - Objective MAR Reviewed: Yes Vital Signs & Weight: Vital Signs (12 hours) Temp Pulse Resp BP BP Pulse Ox 11/03/17 07:41 98.4 F 73 20 181/68 H 97 11/03/17 04:20 98.5 F 72 18 159/62 H 98 11/03/17 00:03 98.5 F 67 20 168/98 H 95 11/02/17 21:02 98.3 F 74 18 179/89 H 98 Weight Weight 110.858 kg I&O: 11/02/17 11/03/17 11/04/17 06:59 06:59 06:59 Intake Total 610 1420 Balance 610 1420 Result Diagrams: 10/30/17 18:46 11/03/17 05:30 <Windy Shea - Last Filed: 11/03/17 08:28> - Objective Vital Signs & Weight: Vital Signs (12 hours) Temp Pulse Pulse Resp BP BP BP 11/03/17 12:00 98.3 F 66 18 148/59 H 11/03/17 09:11 98.4 F 73 20 11/03/17 09:10 73 181/68 H 11/03/17 08:40 91 155/71 H 11/03/17 07:41 98.4 F 73 20 181/68 H 11/03/17 04:20 98.5 F 72 18 BP Pulse Ox 11/03/17 12:00 99 11/03/17 09:11 97 11/03/17 09:10 11/03/17 08:40 11/03/17 07:41 97 11/03/17 04:20 159/62 H 98 Weight Weight 110.858 kg I&O: 11/02/17 11/03/17 11/04/17 06:59 06:59 06:59 Intake Total 610 1420 Balance 610 1420 Result Diagrams: 10/30/17 18:46 11/03/17 05:30 <Mane Barba - Last Filed: 11/03/17 12:59> Phys Exam - Physical Examination Constitutional: NAD HEENT: moist MMs Respiratory: no wheezing, no rales, no rhonchi, clear to auscultation bilateral Cardiovascular: RRR, no significant murmur, no rub Gastrointestinal: soft, non-tender, no distention, positive bowel sounds Musculoskeletal: pulses present, edema present (trace in BLE) Neurological: non-focal, moves all 4 limbs Psychiatric: normal affect Skin: normal turgor, cap refill <2 seconds <Windy Shea - Last Filed: 11/03/17 08:28> Dx/Plan (1) Altered mental status Code(s): R41.82 - ALTERED MENTAL STATUS, UNSPECIFIED Status: Acute QualifierTitle: Altered mental status type: unspecified Qualified Code(s) : R41.82 - Altered mental status, unspecified (2) Amy UTI Code(s): B37.49 - OTHER UROGENITAL CANDIDIASIS Status: Acute (3) Diabetes mellitus Code(s): E11.9 - TYPE 2 DIABETES MELLITUS WITHOUT COMPLICATIONS Status: Acute QualifierTitle: Diabetes mellitus type: type 2 Diabetes mellitus prison insulin use: without prison use Diabetes mellitus complication status : with unspecified complications Qualified Code(s): E11.8 - Type 2 diabetes mellitus with unspecified complications (4) Hyperglycemia Code(s): R73.9 - HYPERGLYCEMIA, UNSPECIFIED Status: Acute (5) Alzheimer's dementia Code(s): G30.9 - ALZHEIMER'S DISEASE, UNSPECIFIED; F02.80 - DEMENTIA IN OTH DISEASES CLASSD ELSWHR W/O BEHAVRL DISTURB Status: Chronic QualifierTitle: Alzheimer's disease onset: late-onset Dementia behavioral disturbance: without behavioral disturbance Qualified Code(s): G30.1 - Alzheimer's disease with late onset; F02.80 - Dementia in other diseases classified elsewhere without behavioral disturbance; F02.80 - Dementia in other diseases classified elsewhere without behavioral disturbance; F02.80 - Dementia in other diseases classified elsewhere without behavioral disturbance (6) History of CVA (cerebrovascular accident) Code(s): Z86.73 - PRSNL HX OF TIA (TIA), AND CEREB INFRC W/O RESID DEFICITS Status: Chronic (7) Hyperlipidemia Code(s): E78.5 - HYPERLIPIDEMIA, UNSPECIFIED Status: Chronic QualifierTitle: Hyperlipidemia type: other hyperlipidemia Qualified Code( s): E78.4 - Other hyperlipidemia (8) Hypertension Code(s): I10 - ESSENTIAL (PRIMARY) HYPERTENSION Status: Chronic QualifierTitle: Hypertension type: essential hypertension Qualified Code( s): I10 - Essential (primary) hypertension (9) Prostate cancer Code(s): C61 - MALIGNANT NEOPLASM OF PROSTATE Status: Chronic (10) Seizure disorder Code(s): G40.909 - EPILEPSY, UNSP, NOT INTRACTABLE, WITHOUT STATUS EPILEPTICUS Status: Chronic - Plan Plan: Encephalopathy 2/2 Hyperglycemia and Alzheimer's Dementia Acute stroke ruled out with MRI negative and CTA shows no acute blockage. Was recently started on risperdol and this could have exacerbated some delirium per Family. Pt blood sugar elevated in 500's, A1c-11 - Newly dx diabetic. Required 34 extra units of short acting insulin 2 days ago due to elevated sugars. Yeast positive in urine. Amy UTI could of exacerbated delirium as well. Mentation at patient's baseline. -Hold Risperdol -Continue SSI, Metformin, started patient on Levemir 10U AM and 20U PM -Diflucan Hyperglycemia 2/2 newly diagnosed DMII Glucose was initially difficult to control. Attempted to control with oral medications initially, due to patient's dementia, however this proved unsuccessful. Have now started the patient on levemir. Glucose has ranged from 168-278 in past 24 hours. The patient received 16U SSI and 20U Levemir at night yesterday. -Continue Mod SSI. Metformin 1000mg BID. Started pt on Levemir 10U AM and 20U PM -Will have document control manager come speak to the sister Amy UTI Amy grew in urine culture. -Diflucan HLD -continue home meds HTN -Continue home meds -Added Chlorthalidone yesterday due to continued elevated BP's Prostate CA -follows with outpatient urology Seizure DO Keppra level stable -continue home keppra and phenytoin Alzheimer's Disease Possibly delirious due to risperdol and Alzheimer's -Hold risperdol Hx of CVA -started daily aspirin Dispo: d/c to inpatient rehab today <Windy Shea - Last Filed: 11/03/17 08:28> Attending Addendum - Attending Addendum Date/Time: 11/03/17 1258 I personally evaluated the patient and discussed the management with Dr. Shea I agree with the History, Examination, Assessment and Plan documented above with any addition or exceptions noted below.Patient stable for dismissal to lower level of care for continued recovery and rehabilitation. <Mane Barba - Last Filed: 11/03/17 12:59>
[2017-11-03] MEDS ORDERED: Insulin Detemir 100 UNITS/ML 20 UNITS in Pre-Filled Syringe 1 EACH SC SCH (09:00)
[2017-11-03] MEDS ORDERED: Insulin Detemir 100 UNITS/ML 10 UNITS in Pre-Filled Syringe 1 EACH SC SCH (09:00)
[2017-11-03] MEDS: Furosemide 20 MG TAB PO SCH (09:10)
[2017-11-03] MEDS: metFORMIN 500 MG TAB PO SCH (09:10)
[2017-11-03] MEDS: Amlodipine 10 MG TAB PO SCH (09:10)
[2017-11-03] MEDS: Metoprolol Tartrate 50 MG TAB PO SCH (09:11)
[2017-11-03] MEDS: levETIRAcetam 500 MG TAB PO SCH (09:11)
[2017-11-03] MEDS: Potassium Chloride 10 MEQ TAB PO SCH (09:11)
[2017-11-03] MEDS: Cetirizine HCl 10 MG TAB PO SCH (09:11)
[2017-11-03] MEDS: Fluconazole 100 MG TAB PO SCH (09:11)
[2017-11-03] MEDS: Chlorthalidone 25 MG TAB PO SCH (09:11)
[2017-11-03] MEDS: Enoxaparin Sodium 40 MG/0.4 ML SYRINGE SC SCH (09:12)
[2017-11-03 12:10] VITALS: BP 148/59; TEMP 98.3
--- NOTE | 2017-11-04 14:43 | DIS-2 ---
DATE OF ADMISSION: 10/31/2017 DATE OF DISCHARGE: 11/03/2017 ADMITTING RESIDENT: Shanelle Zapata D.O. DISCHARGE RESIDENT: Windy Shea M.D. ADMITTING ATTENDING: Rosa M Schwarz M.D. DISCHARGE ATTENDING: Mane Barba M.D. CONSULTATIONS: None. PROCEDURES: None. PRIMARY DIAGNOSES: 1. Hyperosmolar hyperglycaemic state. 2. Delirium. 3. Newly diagnosed type 2 diabetes. 4. Yeast cystitis. SECONDARY DIAGNOSES: 1. Alzheimer's dementia. 2. Seizure disorder. 3. Prostate cancer. 4. History of cerebrovascular accident. DISCHARGE MEDICATIONS: 1. Lantus Solostar 20 units subcu q.a.m. 2. Amlodipine 10 mg p.o. daily. 3. Aspirin 81 mg p.o. daily. 4. Atorvastatin 40 mg p.o. at bedtime. 5. Celecoxib 200 mg p.o. b.i.d. 6. Zyrtec 10 mg p.o. daily. 7. Chlorthalidone 12.5 mg p.o. daily. 8. Finasteride 5 mg p.o. at bedtime. 9. Fluconazole 200 mg p.o. daily for 11 days. 10. Furosemide 20 mg p.o. daily. 11. Levetiracetam 500 mg p.o. q.12 hours. 12. Metformin 1000 mg p.o. b.i.d. with meals. 13. Metoprolol tartrate 50 mg p.o. b.i.d. 14. Pantoprazole 40 mg p.o. daily. 15. Dilantin 100 mg 3 tabs p.o. at bedtime. 16. Potassium chloride 10 mEq p.o. daily. 17. Tamsulosin 0.4 mg p.o. at bedtime. 18. Telmisartan 80 mg p.o. daily. DISCONTINUED MEDICATIONS: Risperdal. HISTORY OF PRESENT ILLNESS AND HOSPITAL COURSE: This is an 82-year-old male with past medical histor y of Alzheimer's dementia and CVA who presented due to altered mental status. The patient had worsen ing confusion and agitation and increased urinary frequency. The patient was found to have an initia l glucose of 578. The patient had never been diagnosed with diabetes prior to this. The patient's h emoglobin A1c was found to be 11.2. The patient was treated with fluids as well as insulin and then the patient was started on oral medications. The patient was initially started on metformin and glip izide. Per the request of the primary laborer [employer] and he did not want the patient to be on insulin as this would be a challenge long-term for her to manage. However, the patient was found to be requirin g 30 plus units of sliding scale insulin per day to keep the blood sugar below 200 and so it was deem ed necessary for the patient to be on insulin at least at this time. The patient was put on Levemir and this helped to control his blood sugars significantly. At the time, patient's blood sugar was im proved. The patient's mentation was closer to baseline. Of note, the patient has also been started outpatient on Risperdal and this was a recent change in his medication and the family had felt like t his had actually made him worse and so this medication had been held, so that could have also been a contributing factor. The patient was also found to have Amy in his urine and due to his altered mentation, this was treated as a Amy UTI as this could also contributed. With all these factors confounding it is unclear which one was a primary player however, it is clear that the patient improv ed significantly after having all three of these things adjusted. The patient was back at his mental baseline at the time of discharge and he was able to be safely discharged to rehabilitation where wa s insulin could be continued to be titrated as well as his blood sugar continued to be checked and he can continue to work with PT and OT to regain his strength. Of note, the patient did have due to wa s altered mental status, a full CVA workup at the beginning of his hospitalization that was negative; however, it did show that he had vascular disease. Also, he had an echo that showed an EF of 60%-65 % with hypokinetic wall motion and diastolic dysfunction. The patient also had a Keppra level checke d as he is on Keppra for seizure disorder and his Keppra level was within normal limits, so it was co ntinued. A glucometer and glucose supplies were prescribed to the patient upon discharge. The patie nt and the patient's family received diabetic counseling and education. DISPOSITION: Stable. DISCHARGE INSTRUCTIONS: 1. Location: Inpatient rehabilitation. 2. Diet: Diabetic diet, heart healthy diet. 3. Activity: As tolerated. 4. Followup: Follow up with PCP within 7 days.
== END 2017-11-03 13:58 | DRG 637 ==
LOC: ERS 18:34 → 2SE 22:05
PROVIDERS: ADMIT Family Medicine; ATTEND Family Medicine
DX: E11.65 Type 2 diabetes mellitus with hyperglycemia (principal); G93.40 Encephalopathy, unspecified; C61 Malignant neoplasm of prostate; G30.9 Alzheimer's disease, unspecified; B37.49 Other urogenital candidiasis; E78.5 Hyperlipidemia, unspecified; F02.80 Dementia in other diseases classified elsewhere, unspecified severity, without behavioral disturbance, psychotic disturbance, mood disturbance, and anxiety; I10 Essential (primary) hypertension; G40.909 Epilepsy, unspecified, not intractable, without status epilepticus; Z86.73 Personal history of transient ischemic attack (TIA), and cerebral infarction without residual deficits
CPT/HCPCS: 36415; 36416; 70450; 70496; 70498; 70551; 71045; 80048; 80053; 80061; 80177; 81003; 81015; 82010; 82330; 82553; 82803; 83036; 83735; 84439; 84443; 84484; 85025; 85610; 85730; 87040; 87086; 93005; 93306; 94760; 96361; 96372; 96374; 96375; A4216; G8978-GP-CJ; G8979-GP-CI; G8987-GO-CK; G8988-GO-CI; G8996-GN-CI; G8997-GN-CI; J0360; J0696; J1650; J1815

== ENCOUNTER 2018-06-16 20:20 | Emergency (ER) | payer MEDICARE, OTHER ==
[2018-06-16 21:10] LABS: Bilirubin Negative (Negative); Blood, Urine Negative (Negative); Clarity CLEAR (Clear); Glucose, Urine (Dipstick) Negative (Negative); Leukocyte Negative (Negative); Nitrite Negative (Negative); Protein, Urine (Dipstick) Negative (Neg-Trace); Specific Gravity, Urine 1.015 (1.002-1.036); Urobilinogen 0.2 mg/dL (0.2-1.0)
[2018-06-16 21:13] LABS: Mean Corpuscular HGB CONC 28.7 g/dL (32.0-36.0); Mean Corpuscular Hemoglobin 18.8 pg (27.0-31.0); Mean Corpuscular Volume 65.4 fL (78.0-98.0); Mean Platelet Volume 11.1 fL (7.4-10.4); Platelet Count 461 thou/uL (130-400); RBC Distribution Width 20.2 % (11.5-14.5); Red Blood Cell (RBC) Count 3.71 mill/uL (4.70-6.10); White Blood Cell (WBC) Count 9.7 thou/uL (4.8-10.8)
[2018-06-16 21:32] LABS: ALT (SGPT) 13 U/L (8-55); AST (SGOT) 16 U/L (5-34); Alkaline Phosphatase 128 U/L (40-150); Anion Gap 15 mmol/L (10-20); BUN (Urea Nitrogen) 18 mg/dL (8.4-25.7); Bilirubin, Total Less than 0.2 mg/dL (0.2-1.2); Calc. Creatinine Clearance 0 mL/min (70-130); Calcium 9.2 mg/dL (7.8-10.44); Carbon Dioxide 24 mmol/L (23-31); Chloride 103 mmol/L (98-107); Estimated GFR-MDRD Greater than 90; Globulin 4.4 g/dL (2.4-3.5); Glucose 90 mg/dL (83-110); Lipase 19 U/L (8-78); Potassium 4.2 mmol/L (3.5-5.1); Protein, Total 8.4 g/dL (5.8-8.1); Sodium 138 mmol/L (136-145)
[2018-06-16 21:36] LABS: #Basophils 0.1 thou/uL (0.0-0.2); #Eosinphils 0.2 thou/uL (0.0-0.7); #Lymphocytes 3.1 thou/uL (1.20-3.40); #Monocytes 0.9 thou/uL (0.11-0.59); #Neutrophils 5.4 thou/uL (1.40-6.50); %Basophils 0.6 % (0.0-1.0); %Eosinophils 1.8 % (0.0-10.0); %Lymphocytes 32.2 % (21.0-51.0); %Monocytes 9.4 % (0.0-10.0); %Neutrophils 55.9 % (42.0-75.0); Acanthocytes SLIGHT = 1-5 cells (100X) (None Seen); Anisocytosis SLIGHT = 6-15 cells (100X) (0-5/hpf); Hypochromia MODERATE=16-30 cells (100X) (0-5/hpf); MDiff Complete? YES; Microcytosis SLIGHT = 6-15 cells (100X) (0-5/hpf); PLT Morphology Comment Appears Increased; Reflex for Review?? YES; Target Cells SLIGHT = 2-5 cells (100X) (0-1/hpf)
--- NOTE | 2018-06-16 21:49 | RAD ---
RADIOGRAPH CHEST 1 VIEW: 06/16/18 HISTORY: 83-year-old male with chest pain. FINDINGS: The thoracic aorta is tortuous and ectatic. There is no evidence of air space density, pneumothorax, or pulmonary edema. The lateral costophrenic angles are sharp. IMPRESSION: 1) No acute pulmonary findings. 2) Ectasia of thoracic aorta. stef [] POS: YOLANDA
--- NOTE | 2018-06-19 14:09 | EKG ---
Test Reason : WEAKNESS Blood Pressure : / mmHG Vent. Rate : 078 BPM Atrial Rate : 078 BPM P-R Int : 176 ms QRS Dur : 088 ms QT Int : 374 ms P-R-T Axes : 047 018 046 degrees QTc Int : 426 ms Normal sinus rhythm Biatrial enlargement Left ventricular hypertrophy Abnormal ECG Confirmed by KAREN ABRAMS, FRANCICSO Kraft ([id number]), website/blog editor ASHLEY GALEAS ([id number]) on 06/19/2018 2:09:39 PM Referred By: Confirmed By:FRANCISCO JONES MD
== END 2018-06-17 00:50 | disposition home or self-care (01) ==
LOC: ERS 20:20
DX: D50.9 Iron deficiency anemia, unspecified (principal); I10 Essential (primary) hypertension; R53.1 Weakness; Z86.73 Personal history of transient ischemic attack (TIA), and cerebral infarction without residual deficits; E78.5 Hyperlipidemia, unspecified; F03.90 Unspecified dementia, unspecified severity, without behavioral disturbance, psychotic disturbance, mood disturbance, and anxiety; F17.210 Nicotine dependence, cigarettes, uncomplicated; Z79.899 Other long term (current) drug therapy; Z79.82 Long term (current) use of aspirin; Z79.84 Long term (current) use of oral hypoglycemic drugs
CPT/HCPCS: 36430; 71045; 80053; 81003; 83690; 84484; 85025; 86850; 86900; 86901; 86920; 87086; 93005; 99285; P9016; 36415; 85060

== ENCOUNTER 2018-07-29 08:01 | Day surgery (SDC) | payer MEDICARE ==
[2018-07-28 09:07] VITALS: BMI 32.8
[2018-07-29] MEDS ORDERED: PROPOFOL 200 MG/20 ML VIAL ONE (15:14)
--- NOTE | 2018-07-29 16:28 | OP ---
DATE OF PROCEDURE: 07/29/2018 PROCEDURES: 1. Esophagogastroduodenoscopy with biopsy. 2. Colonoscopy with polypectomy. INDICATION FOR PROCEDURE: Iron deficiency anemia, anemia of unknown origin. DESCRIPTION OF PROCEDURE: After the risks and benefits of the procedure were explained to the patient including risks of bleeding, infection, perforation, reactions to anesthesia, aspiration and/or pain, informed consent was obtained. The patient was then taken to the endoscopy suite, where deep sedation was administered via propofol and anesthesia support. Once adequate sedation was achieved, the standard gastroscope was introduced into the mouth with intubation of the esophagus, stomach, and proximal small intestine with the findings as listed below. Upon completion of this portion of the procedure, all equipments were removed and the patient's bed was rotated approximately 180 degrees in preparation for the colonoscopy. A digital rectal examination was then performed followed by introduction of the standard colonoscope into the rectum, which was advanced to the terminal ileum without difficulty and careful examination of the mucosa upon withdrawal. The quality of the prep was fair, but converted to a good prep with aggressive irrigation and suctioning. The patient tolerated the procedures well with no immediate perioperative complications. On completion of the colonoscopy, all equipments were removed and the patient was taken to Day Stay in satisfactory condition. EGD FINDINGS: Esophagus: Normal-appearing mucosa was seen in the proximal, mid, and distal esophagus. There was no evidence of erosions, ulcerations, mass, lesions, or active/recent bleeding. Stomach: Normal-appearing mucosa was seen in the gastric cardia, fundus, body, greater curvature, antrum, and incisura. There was no evidence of erosions, ulcerations, mass, lesions, or active/recent bleeding. Duodenum: A 5 to 6 mm nodule was seen in the duodenal bulb along the superior anterior portion of the wall. Biopsies were taken from this nodule. Placed in a specimen jar for evaluation, otherwise normal-appearing mucosa was seen in both the duodenal bulb and second portion of the duodenum. There was no evidence of erosions, ulcerations, mass, lesions, or active/recent bleeding. Random biopsies were taken from both the duodenal bulb and second portion of the duodenum for possible celiac disease. IMPRESSION: 1. A 5 to 6 mm nodule seen in the duodenal bulb, concerning for lipoma versus Turner gland hyperplasia versus adenoma, status post biopsies. 2. Otherwise normal upper endoscopy. COLONOSCOPY FINDINGS: Digital rectal exam, normal external examination. Colon findings, normal-appearing mucosa was seen within the terminal ileum as well as at the ileocecal valve and appendiceal orifice. Normal-appearing mucosa was also seen within the cecum and ascending colon. However, two polyps measuring 3 to 6 mm in size were seen in the transverse colon and completely removed with cold snare polypectomy. They were retrieved and placed in a specimen jar for evaluation. Normal-appearing mucosa was then seen in the descending colon. Three polyps measuring 3 to 7 mm in size were seen in the sigmoid colon and completely removed with cold snare polypectomy. They were retrieved and placed in a specimen jar for evaluation and additional 2 to 3 mm polyp was seen in the rectum and completely removed with cold snare polypectomy. It was retrieved and placed in the specimen jar for evaluation. Otherwise, the remainder of the rectum appeared normal. Small internal hemorrhoids were seen on rectal retroflexion. IMPRESSION: 1. Two transverse colon polyps measuring 3 to 6 mm in size, status post cold snare polypectomy. 2. Three polyps measuring 3 to 7 mm in size, in the sigmoid colon, status post cold snare polypectomy. 3. A 2 to 3 mm rectal polyp status post cold snare polypectomy. 4. Internal hemorrhoids. 5. No etiology for iron-deficiency anemia was seen during this examination. RECOMMENDATIONS: 1. We will follow up on the biopsy results with further EGD or colonoscopy based on pathology results. 2. Continue to trend patient's H and H in regard to his anemia. 3. We would have the patient follow up in the GI clinic in 3 weeks for further evaluation of his iron deficiency anemia and possible capsule endoscopy at that time. 4. We would recommend a high fiber diet given the presence of internal hemorrhoids on examination today. Job ID: [id number]
== END 2018-07-29 12:13 | disposition home or self-care (01) ==
LOC: SDC 08:01
PROVIDERS: ATTEND Internal Medicine
PROC: 0DB98ZX Excision of Duodenum, Via Natural or Artificial Opening Endoscopic, Diagnostic (ICD-10-PCS; principal; 2018-07-29)
PROC: 0DBP8ZZ Excision of Rectum, Via Natural or Artificial Opening Endoscopic (ICD-10-PCS; 2018-07-29)
PROC: 0DBL8ZZ Excision of Transverse Colon, Via Natural or Artificial Opening Endoscopic (ICD-10-PCS; 2018-07-29)
PROC: 0DBN8ZZ Excision of Sigmoid Colon, Via Natural or Artificial Opening Endoscopic (ICD-10-PCS; 2018-07-29)
DX: D50.9 Iron deficiency anemia, unspecified (principal); K31.89 Other diseases of stomach and duodenum; D12.3 Benign neoplasm of transverse colon; D12.5 Benign neoplasm of sigmoid colon; D12.8 Benign neoplasm of rectum; K64.8 Other hemorrhoids; I11.0 Hypertensive heart disease with heart failure; I50.9 Heart failure, unspecified; E11.9 Type 2 diabetes mellitus without complications; E78.00 Pure hypercholesterolemia, unspecified; M19.90 Unspecified osteoarthritis, unspecified site; F03.90 Unspecified dementia, unspecified severity, without behavioral disturbance, psychotic disturbance, mood disturbance, and anxiety; G40.909 Epilepsy, unspecified, not intractable, without status epilepticus; F17.200 Nicotine dependence, unspecified, uncomplicated; Z86.73 Personal history of transient ischemic attack (TIA), and cerebral infarction without residual deficits; Z79.1 Long term (current) use of non-steroidal anti-inflammatories (NSAID); Z79.4 Long term (current) use of insulin; Z79.82 Long term (current) use of aspirin; Z79.899 Other long term (current) drug therapy; Z98.890 Other specified postprocedural states
CPT/HCPCS: 36416; 88305; J2704

== ENCOUNTER 2019-05-05 14:00 | Inpatient (IN) | payer OTHER, MEDICARE ==
--- NOTE | 2019-05-05 14:58 | RAD ---
Exam: Chest one view HISTORY:Cough and wheeze Comparison: 06/16/2018 FINDINGS: Lungs: Interstitial prominence bilaterally. Cardiac silhouette:Enlarged cardiac silhouette and prominent pulmonary vasculature. Pleural Spaces: Clear Pneumothorax: None Osseous abnormalities: None of acuity. IMPRESSION: Findings suggest mild fluid overload. Correlate for evidence of CHF.
[2019-05-05 15:31] LABS: #Eosinphils 0.3 thou/uL (0.0-0.7); #Lymphocytes 2.4 thou/uL (1.20-3.40); #Neutrophils 4.4 thou/uL (1.40-6.50); %Basophils 0.3 % (0.0-1.0); %Eosinophils 3.1 % (0.0-10.0); %Lymphocytes 29.6 % (21.0-51.0); %Monocytes 12.9 % (0.0-10.0); %Neutrophils 54.1 % (42.0-75.0); Mean Corpuscular HGB CONC 32.1 g/dL (32.0-36.0); Mean Corpuscular Hemoglobin 27.5 pg (27.0-31.0); Mean Corpuscular Volume 85.6 fL (78.0-98.0); Mean Platelet Volume 7.7 fL (7.4-10.4); Platelet Count 297 thou/uL (130-400); RBC Distribution Width 16.1 % (11.5-14.5); Red Blood Cell (RBC) Count 3.63 mill/uL (4.70-6.10); White Blood Cell (WBC) Count 8.1 thou/uL (4.8-10.8)
[2019-05-05 15:51] LABS: ALT (SGPT) 11 U/L (8-55); AST (SGOT) 11 U/L (5-34); Alkaline Phosphatase 136 U/L (40-110); Anion Gap 11 mmol/L (10-20); BUN (Urea Nitrogen) 12 mg/dL (8.4-25.7); Bilirubin, Total Less than 0.2 mg/dL (0.2-1.2); Calc. Creatinine Clearance 0 mL/min (70-130); Calcium 9.3 mg/dL (7.8-10.44); Carbon Dioxide 32 mmol/L (23-31); Chloride 103 mmol/L (98-107); Estimated GFR-MDRD Greater than 90; Globulin 3.8 g/dL (2.4-3.5); Glucose 83 mg/dL (83-110); Potassium 4.7 mmol/L (3.5-5.1); Protein, Total 7.8 g/dL (5.8-8.1); Sodium 141 mmol/L (136-145)
[2019-05-05] MEDS ORDERED: Aspirin Chewable 81 MG TAB ONE (16:23)
[2019-05-05] MEDS ORDERED: Nitroglycerin 2% Ointment 1 INCH/1 GM Packet ONE (16:23)
[2019-05-05] MEDS ORDERED: Furosemide 40 MG/4 ML VIAL ONE (16:23)
[2019-05-05] MEDS ORDERED: Acetaminophen 325 MG TAB PO PRN ×2 (16:57→21:15)
[2019-05-05] MEDS ORDERED: HumaLOG 300 UNITS/3 ML VIAL SC PRN ×4 (16:57→21:19)
[2019-05-05] MEDS ORDERED: Senokot S 8.6-50 MG TAB PO PRN ×2 (16:57→21:21)
[2019-05-05] MEDS ORDERED: Dextrose 5% in Water 1,000 ML IV PRN ×2 (16:57→21:16)
[2019-05-05] MEDS ORDERED: Bisacodyl 10 MG SUPP PR PRN ×2 (16:57→21:16)
[2019-05-05] MEDS ORDERED: Dextrose 50% Abboject 50 ML SYRINGE SLOW IVP PRN ×2 (16:57→21:17)
[2019-05-05] MEDS ORDERED: Ondansetron PF 4 MG/2 ML Vial IVP PRN ×2 (16:57→21:20)
[2019-05-05] MEDS ORDERED: Guaifenesin DM 100-10/5 ML UDCUP PO PRN ×2 (16:57→21:18)
[2019-05-05] MEDS ORDERED: metFORMIN 500 MG TAB PO SCH (17:00)
[2019-05-05] MEDS ORDERED: levETIRAcetam 500 MG TAB PO SCH (17:00)
--- NOTE | 2019-05-05 18:49 | HP ---
REASON FOR ADMISSION: Acute on chronic CHF exacerbation with diastolic dysfunction, acute COPD exacerbation. HISTORY OF PRESENTING ILLNESS: The patient gives history of shortness of breath for the last one week, which has been progressively getting worse. He has cough with expectoration of clear sputum. He was wheezing badly this morning per sister, who lives with him. No history of fever, chest pain or palpitation. He has chronic lower extremity edema and is essentially wheelchair bound per sister. He continues to smoke one cigar a day. PAST MEDICAL AND SURGICAL HISTORY: History of diastolic dysfunction in the past, hypertension, history of CVA, dementia, prior history of meningitis, seizure disorder, dyslipidemia, prostate cancer, carpal tunnel release surgery on both hands, and left hip injections in the past. CURRENT MEDICATIONS: The patient is on; 1. Keppra 500 mg p.o. twice daily. 2. Potassium chloride 10 mEq p.o. daily. 3. Telmisartan 80 mg p.o. daily. 4. Metoprolol 50 mg twice daily. 5. Protonix 40 mg p.o. daily. 6. Amlodipine 10 mg p.o. daily. 7. Cetirizine 10 mg daily. 8. Finasteride 5 mg p.o. at bedtime. 9. Atorvastatin 10 mg p.o. at bedtime. 10. Lasix 20 mg daily. 11. Flomax 0.4 mg daily. 12. Celecoxib 200 mg twice daily. 13. Aspirin 81 mg p.o. daily. 14. Metformin 1000 mg twice daily. 15. Phenytoin extended release 300 mg p.o. at bedtime. ALLERGIES: NO KNOWN DRUG ALLERGIES. PERSONAL HISTORY: Smokes one cigar a day. Drinks on social occasions. Does not abuse drugs. He is wheelchair bound. CODE STATUS: Full. Power of consumer attorney is his sister and son Mr. Cage. FAMILY HISTORY: Mother at the age of 79 years from natural causes. Father in his 40s likely from [place]. He had a brother, who in his 50s from cardiac disease. REVIEW OF SYSTEMS: CONSTITUTIONAL: Negative for weight loss or gain, ability to conduct usual activities. SKIN: Negative for rash, itching. EYES: Negative for double vision, pain. ENT/MOUTH: Negative for nose bleeding, neck stiffness, pain, tenderness. CARDIOVASCULAR: Negative for palpitations, dyspnea on exertion, orthopnea. RESPIRATORY: Negative for shortness of breath, wheezing, cough, hemoptysis, fever or night sweats. GASTROINTESTINAL: Negative for poor appetite, abdominal pain, heartburn, nausea, vomiting, constipation, or diarrhea. GENITOURINARY: Negative for urgency, frequency, dysuria, nocturia. MUSCULOSKELETAL: Negative for pain, swelling. NEUROLOGIC/PSYCHIATRIC: Negative for anxiety, depression. ALLERGY/IMMUNOLOGIC: Negative for skin rash, bleeding tendency. PHYSICAL EXAMINATION: GENERAL: The patient is an 84-year-old male, who is currently not in any acute distress. VITAL SIGNS: Blood pressure 134/64, pulse 68 per minute, respiratory rate 18 per minute, temperature 98.1 degrees Fahrenheit, and saturating 98% on room air. NECK: Supple. No elevated JVD. HEENT: Eyes, extraocular muscles intact. Pupils reacting to light. Oral cavity, mucous membranes are moist. No exudates or congestion. CARDIOVASCULAR SYSTEM: S1 and S2 heard. Regular rhythm. RESPIRATORY SYSTEM: Wheezes plus bilateral air entry 1+ bilateral. ABDOMEN: Soft. Bowel sounds heard. No tenderness, rigidity, or guarding. EXTREMITIES: There is 2+ peripheral edema. No calf tenderness. Right lower extremity is usually bigger than left, which has been chronically present per sister, who confirms the same. CENTRAL NERVOUS SYSTEM: No gross focal deficits noted. The patient is alert and fairly oriented given his age of 84 years. Follows verbal stimuli well. Moves both upper extremities well than lower extremities. No gross focal deficits noted. PSYCHIATRIC SYSTEM: The patient's mood is euthymic. No hallucinations or delusions. LABORATORY DATA: White count of 8, H and H 10 and 31, platelet count 297, and MCV is 85 with 54% neutrophils. Serum bicarb 32, BUN 12, and creatinine 0.8. Liver enzymes within normal limits. BNP is 155. First set of cardiac enzymes are negative. Albumin 4.0. Chest x-ray done shows mild pulmonary vascular congestion. No acute infiltrate. EKG done shows sinus rhythm at 63 beats per minute. CLINICAL IMPRESSION AND PLAN: The patient will be admitted to telemetry for acute on chronic congestive heart failure exacerbation with diastolic dysfunction. He also has acute on chronic COPD exacerbation. The patient will be on Lasix 40 mg IV at 6 a.m. and 2 p.m. for a total of four doses. Aspirin, Lipitor, DuoNebs, Solu-Medrol 20 mg IV q.8 hourly. We will continue his Cozaar at 50 mg daily, Toprol at 50 mg twice daily, and continue Keppra and phenytoin for seizure disorder. He will also be on finasteride and Flomax for benign prostatic hypertrophy. Echo with 2D Doppler for current LV function will be obtained. Prior echo reveals moderate concentric LVH with normal ejection fraction and diastolic dysfunction. We will continue to closely monitor him on telemetry. We will also consult Dr. Raphael for Cardiology. Job ID: [id number]
[2019-05-05 20:50] VITALS: BMI 32.2
[2019-05-05] MEDS ORDERED: Tamsulosin HCl 0.4 MG CAP PO SCH (21:00)
[2019-05-05] MEDS ORDERED: Atorvastatin Calcium 40 MG TAB PO SCH (21:00)
[2019-05-05] MEDS ORDERED: Non-Formulary Item 1 EACH (Insulin Glargine,Hum.Rec.Anlog [Lantus Solostar] 10 UNIT) SQ SCH (21:00)
[2019-05-05] MEDS ORDERED: Cefuroxime Axetil 250 MG TAB PO SCH (21:00)
[2019-05-05] MEDS ORDERED: Famotidine 20 MG TAB PO SCH (21:00)
[2019-05-05] MEDS ORDERED: Finasteride 5 MG TAB PO SCH (21:00)
[2019-05-05] MEDS ORDERED: Metoprolol Tartrate 50 MG TAB PO SCH (21:00)
[2019-05-05] MEDS ORDERED: methylPREDNISolone Sod Succ 40 MG VIAL IVP SCH (22:00)
[2019-05-05] MEDS: Atorvastatin Calcium 40 MG TAB PO SCH (22:05)
[2019-05-05] MEDS: Insulin Glargine 10 UNITS in Pre-Filled Syringe SC SCH (22:05)
[2019-05-05] MEDS: methylPREDNISolone Sod Succ 40 MG VIAL IVP SCH (22:05)
[2019-05-05] MEDS: Metoprolol Tartrate 50 MG TAB PO SCH (22:06)
[2019-05-05] MEDS: Cefuroxime Axetil 250 MG TAB PO SCH (22:06)
[2019-05-05] MEDS: Tamsulosin HCl 0.4 MG CAP PO SCH (22:10)
[2019-05-05] MEDS: Finasteride 5 MG TAB PO SCH (22:10)
[2019-05-05] MEDS: levETIRAcetam 500 MG TAB PO SCH (22:11)
[2019-05-06 05:37] LABS: Anion Gap 12 mmol/L (10-20); BUN (Urea Nitrogen) 12 mg/dL (8.4-25.7); Calc. Creatinine Clearance 105 mL/min (70-130); Carbon Dioxide 27 mmol/L (23-31); Chloride 102 mmol/L (98-107); Estimated GFR-MDRD Greater than 90; Glucose 125 mg/dL (83-110); Sodium 137 mmol/L (136-145)
[2019-05-06] MEDS: Furosemide 40 MG/4 ML VIAL SLOW IVP SCH ×2 (05:47→14:46)
[2019-05-06] MEDS: methylPREDNISolone Sod Succ 40 MG VIAL IVP SCH (05:47)
[2019-05-06] MEDS ORDERED: Furosemide 40 MG/4 ML VIAL SLOW IVP SCH (06:00)
[2019-05-06] MEDS: metFORMIN 500 MG TAB PO SCH ×2 (07:33→16:39)
[2019-05-06] MEDS ORDERED: Aspirin Chewable 81 MG TAB PO SCH (09:00)
[2019-05-06] MEDS ORDERED: Prevnar 13-Val Conj/PF 0.5 ML SYRINGE IM ONE (09:00)
[2019-05-06] MEDS ORDERED: CeleCOXIB 100 MG CAP PO SCH (09:00)
[2019-05-06] MEDS ORDERED: FLU VACC TS2019-20(65YR UP)/PF 180 MCG/0.5 ML SYRINGE IM ONE (09:00)
[2019-05-06] MEDS ORDERED: Enoxaparin Sodium 40 MG/0.4 ML SYRINGE SC SCH (09:00)
[2019-05-06] MEDS ORDERED: Losartan 25 MG TAB PO SCH (09:00)
[2019-05-06] MEDS: Insulin Glargine 10 UNITS in Pre-Filled Syringe SC SCH ×2 (09:24→20:50)
[2019-05-06] MEDS: Aspirin Chewable 81 MG TAB PO SCH (09:26)
[2019-05-06] MEDS: Cefuroxime Axetil 250 MG TAB PO SCH ×2 (09:26→20:41)
[2019-05-06] MEDS: levETIRAcetam 500 MG TAB PO SCH ×2 (09:26→20:42)
[2019-05-06] MEDS: Enoxaparin Sodium 40 MG/0.4 ML SYRINGE SC SCH (09:26)
[2019-05-06] MEDS: CeleCOXIB 100 MG CAP PO SCH (09:27)
[2019-05-06] MEDS: Metoprolol Tartrate 50 MG TAB PO SCH ×2 (09:27→20:41)
[2019-05-06] MEDS: Losartan 25 MG TAB PO SCH (09:29)
--- NOTE | 2019-05-06 12:21 | CON ---
DATE OF CONSULTATION: HISTORY OF PRESENT ILLNESS: Mr. Donnelly is an 84-year-old male presenting to the emergency department after approximately one week of worsening cough, congestion, and audible wheezing per himself and his caregiver, his younger sister, who is at bedside. Upon arrival to the ER, the patient was given nebulized steroids and furosemide after laboratory and imaging findings suggested diagnosis of possible CHF versus COPD. The patient my upon my interview is stating he feels much improved since he has been here. He denies fever in the past. Additionally, he denies any orthopnea, paroxysmal nocturnal dyspnea, increasing weight, or swelling. The patient has no reported cardiac diagnoses or surgeries in the past. No evaluations in that regard. The patient does report that he has smoked all of his life. PAST MEDICAL HISTORY: Hypertension, CVA, seizure disorder, hyperlipidemia, prostate cancer, diabetes mellitus type 2, and gastric ulcers. SURGICAL HISTORY: 1. Gastric bleeding ulcer repair. 2. Multiple orthopedic surgeries and injections. ALLERGIES: NO KNOWN DRUG ALLERGIES. FAMILY HISTORY: Noncontributory. REVIEW OF SYSTEMS: GENERAL: Denies any recent weight change or fevers. HEENT: Reports congestion, cough, and rhinorrhea. CARDIOVASCULAR: Denies chest pain, dyspnea on exertion, or orthopnea. RESPIRATORY: Reports shortness of breath and wheezing. GI: Denies abdominal pain, constipation, or diarrhea. : Denies polyuria or dysuria. MUSCULOSKELETAL: Reports multiple joint pains at baseline. NEURO: Denies focal weakness or headache. PHYSICAL EXAMINATION: GENERAL: No acute distress. HEENT: Normocephalic and atraumatic. Dry mucous membranes. HEART: S1 and S2. Regular rate and rhythm with distant heart sounds. RESPIRATORY: End expiratory wheezes present. No rhonchi or crackles heard. ABDOMEN: Nontender to palpation. EXTREMITIES: Lower extremities; 2+ peripheral edema reported at baseline. NEUROLOGIC: No focal weakness or gross neurologic deficit noted. VITAL SIGNS: Most recently have been blood pressure of 195/84, pulse 82, temperature 98, respirations 17, and 98% on room air. LABORATORY FINDINGS: Significant for hemoglobin of 10, BUN and creatinine of 12 and 0.8. Troponin negative at 0.015. BNP mildly elevated at 155.2. ASSESSMENT: 1. Acute chronic obstructive pulmonary disease exacerbation. This patient has significant smoking history and has physical exams consistent with chronic obstructive pulmonary disease, improvement on albuterol. Continue treatment per primary team. 2. Questionable diagnosis of some form of heart failure. Echo is pending. Further management and treatment pending these results. 3. Diabetes mellitus, type 2. Continue home medications. Management per primary team. 4. Hypertension, above goal at this point. Continue home medications. Consider additional medications in future pending echocardiogram results. Job ID: [id number]
--- NOTE | 2019-05-06 13:03 | PDOC.HOSPP ---
- Subjective Encounter Date: 05/06/19 Encounter Time: 10:35 Subjective: no sob, he just ambulated with cardiac rehab to the nursing station and back feels better sister at bedside - Objective Vital Signs & Weight: Vital Signs (12 hours) Temp Pulse Pulse Pulse Resp BP BP 05/06/19 11:15 98.0 F 78 16 05/06/19 10:23 79 82 148/70 H 169/78 H 05/06/19 08:19 82 83 195/84 H 185/80 H 05/06/19 07:15 98.0 F 69 17 05/06/19 07:06 70 16 05/06/19 04:16 98.6 F 76 05/06/19 02:39 77 16 BP BP BP Pulse Ox Pulse Ox 05/06/19 11:15 177/77 H 96 05/06/19 10:23 98 05/06/19 08:19 05/06/19 07:15 183/81 H 100 05/06/19 07:06 98 05/06/19 04:16 167/72 H 132/62 162/88 H 95 05/06/19 02:39 98 Weight Weight 230 lb 11.2 oz I&O: 05/05/19 05/06/19 05/07/19 06:59 06:59 06:59 Intake Total 480 Output Total 2900 Balance -2420 Result Diagrams: 05/05/19 15:21 05/06/19 05:01 Additional Labs: Accuchecks 05/06/19 05/06/19 05/05/19 11:01 05:11 20:30 POC Glucose 144 H 134 H 106 Hospitalist ROS - Medication Medications: Active Medications Generic Name Dose Route Start Last Admin Trade Name Freq PRN Reason Stop Dose Admin Albuterol/Ipratropium 3 ml 05/06/19 01:00 05/06/19 07:06 Duoneb NEB 3 ml [id number] ADRIENNE Administration Aspirin 81 mg 05/06/19 09:00 05/06/19 09:26 Aspirin Chewable PO 81 mg DAILY ADRIENNE Administration Atorvastatin Calcium 40 mg 05/05/19 21:00 05/05/19 22:05 Lipitor PO 40 mg HS ADRIENNE Administration Cefuroxime Axetil 250 mg 05/05/19 21:00 05/06/19 09:26 Ceftin PO 250 mg BID ADRIENNE Administration Celecoxib 200 mg 05/06/19 09:00 05/06/19 09:27 Celebrex PO 200 mg DAILY ADRIENNE Administration Enoxaparin Sodium 40 mg 05/06/19 09:00 05/06/19 09:26 Lovenox SC 40 mg 0900 ADRIENNE Administration Finasteride 5 mg 05/05/19 21:00 05/05/19 22:10 Proscar PO 5 mg HS ADRIENNE Administration Furosemide 40 mg 05/06/19 06:00 05/06/19 05:47 Lasix SLOW IVP 05/07/19 14:01 40 mg 0600,1400 ADRIENNE Administration Insulin Glargine 10 units/ 0.1 mls @ 0 mls/hr 05/05/19 21:00 05/06/19 09:24 Miscellaneous Medication SC 0.1 mls BID ADRIENNE Administration Levetiracetam 500 mg 05/05/19 21:00 05/06/19 09:26 Keppra PO 500 mg Q12HR ADRIENNE Administration Losartan Potassium 50 mg 05/06/19 09:00 05/06/19 09:29 Cozaar PO 50 mg DAILY ADRIENNE Administration Metformin HCl 1,000 mg 05/06/19 08:00 05/06/19 07:33 Glucophage PO 1,000 mg BID-WM ADRIENNE Administration Methylprednisolone Sodium Succinate 20 mg 05/05/19 22:00 05/06/19 05:47 Solu-Medrol IVP 20 mg Q8HR ADRIENNE Administration Metoprolol Tartrate 50 mg 05/05/19 21:00 05/06/19 09:27 Lopressor PO 50 mg BID ADRIENNE Administration Pantoprazole Sodium 40 mg 05/06/19 09:00 05/06/19 09:27 Protonix PO 40 mg DAILY ADRIENNE Administration Phenytoin Sodium 300 mg 05/05/19 21:00 05/05/19 22:10 Dilantin Er PO 300 mg HS ADRIENNE Administration Tamsulosin HCl 0.4 mg 05/05/19 21:00 05/05/19 22:10 Flomax PO 0.4 mg HS ADRIENNE Administration - Exam General Appearance: NAD, awake alert Eye: PERRL, anicteric sclera ENT: no oropharyngeal lesions, moist mucosa Neck: supple, no JVD Heart: RRR, no murmur Respiratory: no wheezes, no rales, rhonchi Gastrointestinal: soft, non-tender, non-distended, normal bowel sounds Extremities: no cyanosis, 1+ LE edema Neurological: cranial nerve grossly intact, no focal deficits Psychiatric: A&O x 3 Hosp A/P (1) COPD exacerbation Code(s): J44.1 - CHRONIC OBSTRUCTIVE PULMONARY DISEASE W (ACUTE) EXACERBATION Status: Acute (2) Acute exacerbation of CHF (congestive heart failure) Code(s): I50.9 - HEART FAILURE, UNSPECIFIED Status: Suspected Qualifiers: Heart failure type: diastolic Qualified Code(s): I50.33 - Acute on chronic diastolic (congestive) heart failure (3) Diabetes mellitus Code(s): E11.9 - TYPE 2 DIABETES MELLITUS WITHOUT COMPLICATIONS Status: Chronic Qualifiers: Diabetes mellitus type: type 2 Diabetes mellitus detention insulin use: with detention use (4) Alzheimer's dementia Code(s): G30.9 - ALZHEIMER'S DISEASE, UNSPECIFIED; F02.80 - DEMENTIA IN OTH DISEASES CLASSD ELSWHR W/O BEHAVRL DISTURB Status: Chronic Qualifiers: Alzheimer's disease onset: unspecified onset Dementia behavioral disturbance: without behavioral disturbance Qualified Code(s): G30.9 - Alzheimer's disease, unspecified; F02.80 - Dementia in other diseases classified elsewhere without behavioral disturbance (5) History of CVA (cerebrovascular accident) Code(s): Z86.73 - PRSNL HX OF TIA (TIA), AND CEREB INFRC W/O RESID DEFICITS Status: Chronic (6) Hyperlipidemia Code(s): E78.5 - HYPERLIPIDEMIA, UNSPECIFIED Status: Chronic Qualifiers: (7) Hypertension Code(s): I10 - ESSENTIAL (PRIMARY) HYPERTENSION Status: Chronic Qualifiers: (8) Prostate cancer Code(s): C61 - MALIGNANT NEOPLASM OF PROSTATE Status: Chronic (9) Seizure disorder Code(s): G40.909 - EPILEPSY, UNSP, NOT INTRACTABLE, WITHOUT STATUS EPILEPTICUS Status: Chronic - Plan hemostable breathing better this am and has ambulated a bit with cardiac rehab continue lasix till am and dc oral prednisone x3 days, ceftin until dc on asp, lipitor, lopressor, cozaar, nebs, lantus bid, keppra and dilantin flomax and finasteride dc plan in am if stable await echo report
[2019-05-06] MEDS ORDERED: Amlodipine 5 MG TAB PO SCH (18:00)
[2019-05-06] MEDS: Finasteride 5 MG TAB PO SCH (20:39)
[2019-05-06] MEDS: Tamsulosin HCl 0.4 MG CAP PO SCH (20:40)
[2019-05-06] MEDS: Atorvastatin Calcium 40 MG TAB PO SCH (20:40)
[2019-05-06] MEDS ORDERED: cloNIDine 0.1 MG TAB PO PRN (21:28)
--- NOTE | 2019-05-06 23:56 | CON ---
DATE OF CONSULTATION: 05/06/2019 INDICATION FOR CONSULTATION: An 84-year-old patient who has had increasing shortness of breath, coughing, congestion, significant wheeze. His family members then brought him to the hospital due to expiratory wheezing and he became more short of breath. He was given treatments in the emergency room and then had chest x-ray which showed possibility of some CHF. However, his BNP is not significantly elevated, it was slightly elevated, but that would not be concerned with congestive heart failure to any significant degree. Otherwise, he is doing quite well. He has been feeling much better since he had the nebulizer treatments. He does have a history of some hypertension, but has had no previous cardiac history that he is aware of. He has smoked a significant amount of time most of his life and has significant COPD and most likely has some pulmonary hypertension, but has not had any significant lower extremity edema that would make me think he has cor pulmonale, but does have this significant wheezing. He denies any significant chest pain. PAST MEDICAL HISTORY: Please refer the notes dictated by the Demian levin who saw the patient today. SOCIAL HISTORY: Please refer the notes dictated by the Demian levin who saw the patient today. FAMILY HISTORY: Please refer the notes dictated by the Demian levin who saw the patient today. REVIEW OF SYSTEMS: Please refer the notes dictated by the Demian levin who saw the patient today. ALLERGIES: PLEASE REFER THE NOTES DICTATED BY THE DEMIAN LEVIN WHO SAW THE PATIENT TODAY. MEDICATIONS: Please refer the notes dictated by the Demian levin who saw the patient today. We have discussed this patient and I would agree with his assessment and history and physical examination. Also, I have also seen the patient. PHYSICAL EXAMINATION: GENERAL: Shows a well-developed, well-nourished gentleman, in no acute distress. VITAL SIGNS: His blood pressure is elevated at 157/68, heart rate is 68. Earlier, blood pressure was 148/70, heart rate 60s and shows a regular rhythm at this time, sinus rhythm on the monitor. He is afebrile, respiratory rate 16. HEENT: Reveal the head to be normocephalic and atraumatic. I did not hear any significant bruits. There is no significant JVD. CHEST: Has some scattered wheezing and end expiration. No rales or rhonchi are noted. CARDIOVASCULAR: Reveals a regular rate and rhythm. Heart sounds are somewhat distant. I do not hear any gross murmurs. ABDOMEN: Soft and nontender. EXTREMITIES: Show mild lower extremity edema. No significant abnormalities otherwise. Pedal pulses are difficult to palpate. NEUROLOGICAL: The patient appears to be relatively unremarkable. He has normal strength and tone for someone of his age. IMAGING: EKG did not show any acute changes. He has a normal sinus rhythm with no acute changes. He does have some T-wave inversion in I and aVL and some flattening of the T-waves in V5 and V6. LABORATORY DATA: Showed a hemoglobin of 10, a WBC of 8.1, and platelet count was 297,000. The potassium was 4.0, sodium was 137, BUN was 12, creatinine 0.81, blood sugar is elevated as high as I saw was 144. His BNP was only 155. Cardiac enzymes are unremarkable, they are negative. IMPRESSION: 1. Elderly gentleman with chronic obstructive pulmonary disease exacerbation, who appears to be improving with the medical treatment. 2. No history of previous cardiac history. However, given his age and risk factors for coronary artery disease with his hypertension and hyperlipidemia as well as diabetes, at some point in time, it would best be for him to undergo some type of stress testing to rule out evidence of underlying coronary artery disease. 3. History of diabetes, this will be dealt with by the primary care service. 4. Hypertension. We will continue to manage his medications. He may need to have increased doses of medications to lower the blood pressure, but he denies any significant chest pain or any other indication that he has significant coronary artery disease. He has been taking I believe Amlodipine in the past. I do not see that on his list of medications at this time. We would re-initiate the amlodipine and continue other medications as necessary to lower the blood pressure hopefully sometime with the blood pressure around 120s to 130s would be optimal, but certainly with his case up to 140, but most likely be reasonable. Job ID: [id number]
[2019-05-07 05:19] LABS: Anion Gap 14 mmol/L (10-20); BUN (Urea Nitrogen) 17 mg/dL (8.4-25.7); Calc. Creatinine Clearance 91 mL/min (70-130); Calcium 8.5 mg/dL (7.8-10.44); Carbon Dioxide 27 mmol/L (23-31); Chloride 96 mmol/L (98-107); Estimated GFR-MDRD Greater than 90; Glucose 119 mg/dL (83-110); Potassium 3.1 mmol/L (3.5-5.1); Sodium 134 mmol/L (136-145)
[2019-05-07] MEDS: Furosemide 40 MG/4 ML VIAL SLOW IVP SCH ×2 (05:40→14:12)
[2019-05-07] MEDS: Losartan 25 MG TAB PO SCH (10:22)
[2019-05-07] MEDS: levETIRAcetam 500 MG TAB PO SCH ×2 (10:22→20:09)
[2019-05-07] MEDS: metFORMIN 500 MG TAB PO SCH ×2 (10:22→17:06)
[2019-05-07] MEDS: CeleCOXIB 100 MG CAP PO SCH (10:22)
[2019-05-07] MEDS: Cefuroxime Axetil 250 MG TAB PO SCH ×2 (10:23→20:08)
[2019-05-07] MEDS: predniSONE 20 MG TAB PO SCH (10:23)
[2019-05-07] MEDS: Enoxaparin Sodium 40 MG/0.4 ML SYRINGE SC SCH (10:24)
[2019-05-07] MEDS: Amlodipine 5 MG TAB PO SCH (10:24)
[2019-05-07] MEDS: Aspirin Chewable 81 MG TAB PO SCH (10:24)
[2019-05-07] MEDS: Metoprolol Tartrate 50 MG TAB PO SCH ×2 (10:24→20:09)
[2019-05-07] MEDS: Insulin Glargine 10 UNITS in Pre-Filled Syringe SC SCH ×2 (10:24→20:29)
--- NOTE | 2019-05-07 13:01 | PDOC.HOSPP ---
- Subjective Encounter Date: 05/07/19 Encounter Time: 11:10 Subjective: no sob, is ambulating in room no chest pain or palp was drinking a lot of water before atleast 4 liters per sister at bedside - Objective Vital Signs & Weight: Vital Signs (12 hours) Temp Pulse Resp BP Pulse Ox 05/07/19 11:48 97.9 F 77 16 153/103 H 96 05/07/19 10:24 79 05/07/19 08:00 98.0 F 74 17 148/76 H 98 05/07/19 07:12 79 18 99 05/07/19 04:00 98 F 72 18 136/75 95 05/07/19 01:24 97 Weight Weight 233 lb 9 oz I&O: 05/06/19 05/07/19 05/08/19 06:59 06:59 06:59 Intake Total 480 Output Total 2900 Balance -2420 Result Diagrams: 05/05/19 15:21 05/07/19 03:53 Additional Labs: Accuchecks 05/07/19 05/07/19 05/06/19 10:45 05:20 20:28 POC Glucose 135 H 119 H 136 H 05/06/19 17:18 POC Glucose 132 H Hospitalist ROS - Medication Medications: Active Medications Generic Name Dose Route Start Last Admin Trade Name Freq PRN Reason Stop Dose Admin Albuterol/Ipratropium 3 ml 05/06/19 01:00 05/07/19 07:12 Duoneb NEB 3 ml [id number] ADRIENNE Administration Amlodipine Besylate 5 mg 05/07/19 09:00 05/07/19 10:24 Norvasc PO 5 mg DAILY ADRIENNE Administration Aspirin 81 mg 05/06/19 09:00 05/07/19 10:24 Aspirin Chewable PO 81 mg DAILY ADRIENNE Administration Atorvastatin Calcium 40 mg 05/05/19 21:00 05/06/19 20:40 Lipitor PO 40 mg HS ADRIENNE Administration Cefuroxime Axetil 250 mg 05/05/19 21:00 05/07/19 10:23 Ceftin PO 250 mg BID ADRIENNE Administration Celecoxib 200 mg 05/06/19 09:00 05/07/19 10:22 Celebrex PO 200 mg DAILY ADRIENNE Administration Clonidine 0.1 mg 05/06/19 21:28 05/06/19 21:38 Catapres PO 0.1 mg Q4H PRN Administration SBP > 180 Enoxaparin Sodium 40 mg 05/06/19 09:00 05/07/19 10:24 Lovenox SC 40 mg 0900 ADRIENNE Administration Finasteride 5 mg 05/05/19 21:00 05/06/19 20:39 Proscar PO 5 mg HS ADRIENNE Administration Furosemide 40 mg 05/06/19 06:00 05/07/19 05:40 Lasix SLOW IVP 05/07/19 14:01 40 mg 0600,1400 ADRIENNE Administration Insulin Glargine 10 units/ 0.1 mls @ 0 mls/hr 05/05/19 21:00 05/07/19 10:24 Miscellaneous Medication SC 0.1 mls BID ADRIENNE Administration Levetiracetam 500 mg 05/05/19 21:00 05/07/19 10:22 Keppra PO 500 mg Q12HR ADRIENNE Administration Losartan Potassium 50 mg 05/06/19 09:00 05/07/19 10:22 Cozaar PO 50 mg DAILY ADRIENNE Administration Metformin HCl 1,000 mg 05/06/19 08:00 05/07/19 10:22 Glucophage PO 1,000 mg BID-WM ADRIENNE Administration Metoprolol Tartrate 50 mg 05/05/19 21:00 05/07/19 10:24 Lopressor PO 50 mg BID ADRIENNE Administration Pantoprazole Sodium 40 mg 05/06/19 09:00 05/07/19 10:23 Protonix PO 40 mg DAILY ADRIENNE Administration Phenytoin Sodium 300 mg 05/05/19 21:00 05/06/19 20:41 Dilantin Er PO 300 mg HS ADRIENNE Administration Prednisone 20 mg 05/07/19 08:00 05/07/19 10:23 Prednisone PO 20 mg QAM-WM ADRIENNE Administration Tamsulosin HCl 0.4 mg 05/05/19 21:00 05/06/19 20:40 Flomax PO 0.4 mg HS DARIENNE Administration - Exam General Appearance: NAD, awake alert Eye: PERRL, anicteric sclera ENT: no oropharyngeal lesions, moist mucosa Neck: supple, no JVD Heart: RRR, no murmur Respiratory: no wheezes, no rales, rhonchi Gastrointestinal: soft, non-tender, non-distended, normal bowel sounds Extremities: no cyanosis, no edema Neurological: cranial nerve grossly intact, no focal deficits Psychiatric: A&O x 3 Hosp A/P (1) COPD exacerbation Code(s): J44.1 - CHRONIC OBSTRUCTIVE PULMONARY DISEASE W (ACUTE) EXACERBATION Status: Acute (2) Acute exacerbation of CHF (congestive heart failure) Code(s): I50.9 - HEART FAILURE, UNSPECIFIED Status: Acute Qualifiers: Heart failure type: diastolic Qualified Code(s): I50.33 - Acute on chronic diastolic (congestive) heart failure (3) Diabetes mellitus Code(s): E11.9 - TYPE 2 DIABETES MELLITUS WITHOUT COMPLICATIONS Status: Chronic Qualifiers: Diabetes mellitus type: type 2 Diabetes mellitus snf insulin use: with snf use (4) Alzheimer's dementia Code(s): G30.9 - ALZHEIMER'S DISEASE, UNSPECIFIED; F02.80 - DEMENTIA IN OTH DISEASES CLASSD ELSWHR W/O BEHAVRL DISTURB Status: Chronic Qualifiers: Alzheimer's disease onset: unspecified onset Dementia behavioral disturbance: without behavioral disturbance Qualified Code(s): G30.9 - Alzheimer's disease, unspecified; F02.80 - Dementia in other diseases classified elsewhere without behavioral disturbance (5) History of CVA (cerebrovascular accident) Code(s): Z86.73 - PRSNL HX OF TIA (TIA), AND CEREB INFRC W/O RESID DEFICITS Status: Chronic (6) Hyperlipidemia Code(s): E78.5 - HYPERLIPIDEMIA, UNSPECIFIED Status: Chronic Qualifiers: (7) Hypertension Code(s): I10 - ESSENTIAL (PRIMARY) HYPERTENSION Status: Chronic Qualifiers: (8) Prostate cancer Code(s): C61 - MALIGNANT NEOPLASM OF PROSTATE Status: Chronic (9) Seizure disorder Code(s): G40.909 - EPILEPSY, UNSP, NOT INTRACTABLE, WITHOUT STATUS EPILEPTICUS Status: Chronic - Plan hemostable copd flare is resolving dc lasix oral prednisone x3 days, ceftin until dc on asp, lipitor, lopressor, cozaar, nebs, lantus bid, keppra and dilantin flomax and finasteride dc plan per cardio adv echo shows normal ef.
--- NOTE | 2019-05-07 13:45 | PDOC.CPN ---
- Subjective Date: 05/07/19 Time: 13:49 Interval history: The pt seen and examined. No overnight events. No cardiac complaints. - Objective Allergies/Adverse Reactions: Allergies Allergy/AdvReac Type Severity Reaction Status Date / Time No Known Allergies Allergy Verified 05/05/19 23:48 Visit Medications: Current Medications Acetaminophen (Tylenol) 650 mg PO Q4H PRN PRN Reason: Headache/Fever/Mild Pain (1-3) Albuterol/Ipratropium (Duoneb) 3 ml NEB [id number] [facility] Last Admin: 05/07/19 13:41 Dose: 3 ml Amlodipine Besylate (Norvasc) 5 mg PO DAILY [facility] Last Admin: 05/07/19 10:24 Dose: 5 mg Aspirin (Aspirin Chewable) 81 mg PO DAILY [facility] Last Admin: 05/07/19 10:24 Dose: 81 mg Atorvastatin Calcium (Lipitor) 40 mg PO HS [facility] Last Admin: 05/06/19 20:40 Dose: 40 mg Bisacodyl (Dulcolax) 10 mg [place] DAILYPRN PRN PRN Reason: Constipation Cefuroxime Axetil (Ceftin) 250 mg PO BID [facility] Last Admin: 05/07/19 10:23 Dose: 250 mg Celecoxib (Celebrex) 200 mg PO DAILY [facility] Last Admin: 05/07/19 10:22 Dose: 200 mg Clonidine (Catapres) 0.1 mg PO Q4H PRN PRN Reason: SBP > 180 Last Admin: 05/06/19 21:38 Dose: 0.1 mg Dextrose/Water (Dextrose 50%) 25 gm SLOW IVP PRN PRN PRN Reason: Hypoglycemia Enoxaparin Sodium (Lovenox) 40 mg SC 0900 [facility] Last Admin: 05/07/19 10:24 Dose: 40 mg Finasteride (Proscar) 5 mg PO HS [facility] Last Admin: 05/06/19 20:39 Dose: 5 mg Furosemide (Lasix) 40 mg SLOW IVP 0600,1400 [facility] Stop: 05/07/19 14:01 Last Admin: 05/07/19 05:40 Dose: 40 mg Glucagon (Glucagon) 1 mg IM PRN PRN PRN Reason: Hypoglycemia Guaifenesin/Dextromethorphan (Robitussin Dm) 15 ml PO Q4H PRN PRN Reason: Cough Insulin Glargine 10 units/ (Miscellaneous Medication) 0.1 mls @ 0 mls/hr SC BID [facility] Last Admin: 05/07/19 10:24 Dose: 0.1 mls Dextrose/Water (D5w) 1,000 mls @ 0 mls/hr IV .Q0M PRN PRN Reason: Hypoglycemia Insulin Human Lispro (Humalog) 0 units SC .MODERATE SLIDING SC PRN PRN Reason: Moderate Correctional Scale Insulin Human Lispro (Humalog) 0 units SC .BEDTIME SLIDING SC PRN PRN Reason: Bedtime Correctional Scale Levetiracetam (Keppra) 500 mg PO Q12HR [facility] Last Admin: 05/07/19 10:22 Dose: 500 mg Losartan Potassium (Cozaar) 50 mg PO DAILY [facility] Last Admin: 05/07/19 10:22 Dose: 50 mg Metformin HCl (Glucophage) 1,000 mg PO BID-[facility] Last Admin: 05/07/19 10:22 Dose: 1,000 mg Metoprolol Tartrate (Lopressor) 50 mg PO BID [facility] Last Admin: 05/07/19 10:24 Dose: 50 mg Ondansetron HCl (Zofran) 4 mg IVP Q6H PRN PRN Reason: Nausea/Vomiting Pantoprazole Sodium (Protonix) 40 mg PO DAILY [facility] Last Admin: 05/07/19 10:23 Dose: 40 mg Phenytoin Sodium (Dilantin Er) [address] [facility] Last Admin: 05/06/19 20:41 Dose: 300 mg Potassium Chloride (K-Dur) 40 meq PO Q6H [facility] Stop: 05/07/19 19:16 Prednisone (Prednisone) 20 mg PO QA-[facility] Last Admin: 05/07/19 10:23 Dose: 20 mg Senna/Docusate Sodium (Senokot S) 2 tab PO BIDPRN PRN PRN Reason: Constipation Tamsulosin HCl (Flomax) 0.4 mg PO [facility] Last Admin: 05/06/19 20:40 Dose: 0.4 mg Vital Signs & Weight: Vital Signs Temp Pulse Resp BP Pulse Ox 05/07/19 13:41 72 16 97 05/07/19 11:48 97.9 F 77 16 153/103 H 96 05/07/19 10:24 79 05/07/19 08:00 98.0 F 74 17 148/76 H 98 05/07/19 07:12 79 18 99 05/07/19 04:00 98 F 72 18 136/75 95 Weight 233 lb 9 oz - Physical Exam General: alert & oriented x3 HEENT: mucus membranes moist Neck: supple neck Cardiac: regular rate and rhythm, S1/S2 Lungs: clear to auscultation, decreased breath sounds Skin: clear Musculoskeletal: decreased range of motion - Labs Result Diagrams: 05/05/19 15:21 05/07/19 03:53 Troponin/CKMB Troponin I 0.015 ng/mL (< 0.028) 05/05/19 15:21 - Telemetry Sinus rhythms and dysrhythmias: sinus rhythm - Assessment/Plan Assessment/Plan: 1. Acute on Chronic diastolic HF - stable with RA; on BBlocker and ARB; not on Diuretic; 2. COPD exacerbation - stable with RA 3. HTN - stable 4. HLD - on statin 5. DM type 2 - managed by PCP 6. Hx of CVA and alzheimer's disease - 7. Prostate Ca - 8. Seizure MAR reviewed * Echo on 05/06/2019 with EF 55-60%, mild LVH, mild-mod dilated LA, mild MR and TR Pt. seen and eval. by me. I agree with the A/P by the CASE AIDE. RRR,chest clear, decreased BS. No significant edema. gjmary
[2019-05-07] MEDS: Potassium Chloride 20 MEQ TAB PO SCH ×2 (14:11→20:09)
[2019-05-07] MEDS: Finasteride 5 MG TAB PO SCH (20:08)
[2019-05-07] MEDS: Tamsulosin HCl 0.4 MG CAP PO SCH (20:09)
[2019-05-07] MEDS: Atorvastatin Calcium 40 MG TAB PO SCH (20:09)
[2019-05-08 04:38] VITALS: TEMP 97.6
[2019-05-08 06:03] LABS: Anion Gap 15 mmol/L (10-20); BUN (Urea Nitrogen) 20 mg/dL (8.4-25.7); Calc. Creatinine Clearance 91 mL/min (70-130); Calcium 9.3 mg/dL (7.8-10.44); Carbon Dioxide 23 mmol/L (23-31); Chloride 102 mmol/L (98-107); Estimated GFR-MDRD Greater than 90; Glucose 100 mg/dL (83-110); Potassium 4.3 mmol/L (3.5-5.1); Sodium 136 mmol/L (136-145)
[2019-05-08] MEDS: Enoxaparin Sodium 40 MG/0.4 ML SYRINGE SC SCH (09:42)
[2019-05-08] MEDS: Insulin Glargine 10 UNITS in Pre-Filled Syringe SC SCH (09:42)
[2019-05-08] MEDS: Losartan 25 MG TAB PO SCH (09:43)
[2019-05-08] MEDS: predniSONE 20 MG TAB PO SCH (09:43)
[2019-05-08] MEDS: metFORMIN 500 MG TAB PO SCH (09:43)
[2019-05-08] MEDS: CeleCOXIB 100 MG CAP PO SCH (09:43)
[2019-05-08] MEDS: Amlodipine 5 MG TAB PO SCH (09:43)
[2019-05-08] MEDS: Cefuroxime Axetil 250 MG TAB PO SCH (09:43)
[2019-05-08] MEDS: Metoprolol Tartrate 50 MG TAB PO SCH (09:44)
[2019-05-08] MEDS: levETIRAcetam 500 MG TAB PO SCH (09:44)
[2019-05-08] MEDS: Aspirin Chewable 81 MG TAB PO SCH (09:44)
[2019-05-08 13:38] VITALS: BP 186/84
--- NOTE | 2019-05-08 13:56 | PDOC.CPN ---
- Subjective Date: 05/08/19 Time: 13:59 Interval history: The pt seen and examined. No overnight events. No cardiac complaints. - Objective Allergies/Adverse Reactions: Allergies Allergy/AdvReac Type Severity Reaction Status Date / Time No Known Allergies Allergy Verified 05/05/19 23:48 Visit Medications: Current Medications Acetaminophen (Tylenol) 650 mg PO Q4H PRN PRN Reason: Headache/Fever/Mild Pain (1-3) Albuterol/Ipratropium (Duoneb) 3 ml NEB [id number] [facility] Last Admin: 05/08/19 07:52 Dose: 3 ml Amlodipine Besylate (Norvasc) 5 mg PO DAILY [facility] Last Admin: 05/08/19 09:43 Dose: 5 mg Aspirin (Aspirin Chewable) 81 mg PO DAILY [facility] Last Admin: 05/08/19 09:44 Dose: 81 mg Atorvastatin Calcium (Lipitor) 40 mg PO HS [facility] Last Admin: 05/07/19 20:09 Dose: 40 mg Bisacodyl (Dulcolax) 10 mg [place] DAILYPRN PRN PRN Reason: Constipation Cefuroxime Axetil (Ceftin) 250 mg PO BID [facility] Last Admin: 05/08/19 09:43 Dose: 250 mg Celecoxib (Celebrex) 200 mg PO DAILY [facility] Last Admin: 05/08/19 09:43 Dose: 200 mg Clonidine (Catapres) 0.1 mg PO Q4H PRN PRN Reason: SBP > 180 Last Admin: 05/06/19 21:38 Dose: 0.1 mg Dextrose/Water (Dextrose 50%) 25 gm SLOW IVP PRN PRN PRN Reason: Hypoglycemia Enoxaparin Sodium (Lovenox) 40 mg SC 0900 [facility] Last Admin: 05/08/19 09:42 Dose: 40 mg Finasteride (Proscar) 5 mg PO HS [facility] Last Admin: 05/07/19 20:08 Dose: 5 mg Glucagon (Glucagon) 1 mg IM PRN PRN PRN Reason: Hypoglycemia Guaifenesin/Dextromethorphan (Robitussin Dm) 15 ml PO Q4H PRN PRN Reason: Cough Insulin Glargine 10 units/ (Miscellaneous Medication) 0.1 mls @ 0 mls/hr SC BID [facility] Last Admin: 05/08/19 09:42 Dose: 0.1 mls Dextrose/Water (D5w) 1,000 mls @ 0 mls/hr IV .Q0M PRN PRN Reason: Hypoglycemia Insulin Human Lispro (Humalog) 0 units SC .MODERATE SLIDING SC PRN PRN Reason: Moderate Correctional Scale Insulin Human Lispro (Humalog) 0 units SC .BEDTIME SLIDING SC PRN PRN Reason: Bedtime Correctional Scale Levetiracetam (Keppra) 500 mg PO Q12HR [facility] Last Admin: 05/08/19 09:44 Dose: 500 mg Losartan Potassium (Cozaar) 50 mg PO DAILY [facility] Last Admin: 05/08/19 09:43 Dose: 50 mg Metformin HCl (Glucophage) 1,000 mg PO BID-[facility] Last Admin: 05/08/19 09:43 Dose: 1,000 mg Metoprolol Tartrate (Lopressor) 50 mg PO BID [facility] Last Admin: 05/08/19 09:44 Dose: 50 mg Ondansetron HCl (Zofran) 4 mg IVP Q6H PRN PRN Reason: Nausea/Vomiting Pantoprazole Sodium (Protonix) 40 mg PO DAILY [facility] Last Admin: 05/08/19 09:43 Dose: 40 mg Phenytoin Sodium (Dilantin Er) 300 mg PO [facility] Last Admin: 05/07/19 20:08 Dose: 300 mg Prednisone (Prednisone) 20 mg PO QAM-[facility] Last Admin: 05/08/19 09:43 Dose: 20 mg Senna/Docusate Sodium (Senokot S) 2 tab PO BIDPRN PRN PRN Reason: Constipation Last Admin: 05/07/19 14:15 Dose: 2 tab Tamsulosin HCl (Flomax) 0.4 mg PO [facility] Last Admin: 05/07/19 20:09 Dose: 0.4 mg Vital Signs & Weight: Vital Signs Temp Pulse Resp BP BP BP BP 05/08/19 11:00 153/78 H 05/08/19 10:41 186/84 H 150/68 H 05/08/19 09:43 79 05/08/19 08:00 97.6 F 80 18 186/83 H 05/08/19 07:55 05/08/19 07:52 79 16 05/08/19 04:00 97.6 F 77 14 145/65 H 05/08/19 02:57 Pulse Ox 05/08/19 11:00 05/08/19 10:41 05/08/19 09:43 05/08/19 08:00 97 05/08/19 07:55 97 05/08/19 07:52 97 05/08/19 04:00 97 05/08/19 02:57 98 Weight 235 lb - Physical Exam General: alert & oriented x3 HEENT: mucus membranes moist Neck: supple neck, JVD/HJR Cardiac: regular rate and rhythm, S1/S2 Lungs: decreased breath sounds Neuro: cranial nerve 2-12 intact, other ([place]) Abdomen: unremarkable Extremities: no cyanosis Skin: clear Musculoskeletal: normal range of motion - Labs Result Diagrams: 05/05/19 15:21 05/08/19 05:13 Troponin/CKMB Troponin I 0.015 ng/mL (< 0.028) 05/05/19 15:21 - Telemetry Sinus rhythms and dysrhythmias: sinus rhythm - Assessment/Plan Assessment/Plan: 1. Acute on Chronic diastolic HF - stable with RA; on BBlocker and ARB; not on Diuretic; changing Metoprolol tartate 50mg BID to Coreg 25mg BID 2. COPD exacerbation - stable with RA 3. HTN - stable 4. HLD - on statin 5. DM type 2 - managed by PCP 6. Hx of CVA and alzheimer's disease - 7. Prostate Ca - 8. Seizure MAR reviewed * Echo on 05/06/2019 with EF 55-60%, mild LVH, mild-mod dilated LA, mild MR and TR * From Cardiac standpoint, the pt is stable to d/c home. The pt will f/u with Dr Baez' office within 2-4wks. * The coreg prescription will be sent to his pharmacy
[2019-05-08] MEDS ORDERED: Carvedilol 25 MG TAB PO SCH (17:00)
--- NOTE | 2019-05-08 19:43 | DIS ---
DATE OF ADMISSION: 05/05/2019 DATE OF DISCHARGE: 05/08/2019 DISCHARGE DISPOSITION: Home. PRIMARY DISCHARGE DIAGNOSES: Acute on chronic congestive heart failure exacerbation with diastolic dysfunction, ACC class C, [place] [employer] stage 3; acute on chronic chronic obstructive pulmonary disease exacerbation, resolved; hypertension; dyslipidemia; diabetes mellitus type 2; history of dementia; history of CVA; prostate cancer; history of seizure disorder. PROCEDURES DONE DURING HOSPITALIZATION: Echo with 2D Doppler done showed EF of 55% to 60%. Mild LVH was seen. H and H of 10 and 31, and platelet count 297. BUN 20, creatinine 0.9. DISCHARGE MEDICATIONS: 1. Norvasc 10 mg p.o. daily. 2. Celecoxib 200 mg p.o. daily. 3. Cetirizine 10 mg p.o. daily for severe seasonal allergies. 4. Finasteride 5 mg p.o. at bedtime. 5. Lasix 20 mg daily. 6. Lantus 20 units subcu twice daily. 7. Keppra 500 mg p.o. twice daily. 8. Metoprolol tartrate 50 mg twice daily. 9. Protonix 40 mg daily. 10. Phenytoin extended release 300 mg p.o. at bedtime. 11. K-Dur 10 mEq p.o. daily. 12. Flomax 0.4 mg p.o. at bedtime. 13. Telmisartan 80 mg p.o. daily. 14. Albuterol inhaler q.6 hourly p.r.n. 15. Aspirin 81 mg p.o. daily. 16. Atorvastatin 40 mg p.o. at bedtime. 17. Metformin 1000 mg p.o. twice daily. ALLERGIES: NO KNOWN DRUG ALLERGIES. DISCHARGE PLAN: The patient to follow up with Dr. Raphael in 2 to 3 weeks. He needs to follow up with Dr. Dulce Alvares, his primary care physician in 1 week. BRIEF COURSE DURING HOSPITALIZATION: The patient initially got admitted on the with complaints of shortness of breath, cough, and wheezing. The patient was essentially admitted to telemetry for acute on chronic COPD exacerbation and acute CHF exacerbation with diastolic dysfunction. He was placed on DuoNebs, steroids, and Lasix. Mr. Donnelly has responded well to above measures. He has had consultation with Dr. Baez for Cardiology. He was found to have had diastolic dysfunction with normal ejection fraction. The patient has ambulated with physical therapy on the floor. He has remained hemodynamically stable. His shortness of breath, orthopnea, and exertional dyspnea have all resolved. Please note, I have seen and examined the patient on the day of discharge. Job ID: [id number]
== END 2019-05-08 14:35 | disposition home health service (06) | DRG 190 ==
LOC: ERS 14:00 → 2NO 18:13 → ERS 18:18
PROVIDERS: ADMIT Internal Medicine; ATTEND Internal Medicine
DX: J44.1 Chronic obstructive pulmonary disease with (acute) exacerbation (principal); I50.33 Acute on chronic diastolic (congestive) heart failure; Z23 Encounter for immunization; I11.0 Hypertensive heart disease with heart failure; E78.00 Pure hypercholesterolemia, unspecified; G30.9 Alzheimer's disease, unspecified; F02.80 Dementia in other diseases classified elsewhere, unspecified severity, without behavioral disturbance, psychotic disturbance, mood disturbance, and anxiety; I08.1 Rheumatic disorders of both mitral and tricuspid valves; E11.9 Type 2 diabetes mellitus without complications; G40.909 Epilepsy, unspecified, not intractable, without status epilepticus; E78.5 Hyperlipidemia, unspecified; N40.0 Benign prostatic hyperplasia without lower urinary tract symptoms; F17.290 Nicotine dependence, other tobacco product, uncomplicated; Z79.82 Long term (current) use of aspirin; Z99.3 Dependence on wheelchair; Z86.73 Personal history of transient ischemic attack (TIA), and cerebral infarction without residual deficits; Z79.84 Long term (current) use of oral hypoglycemic drugs; Z79.899 Other long term (current) drug therapy; Z85.46 Personal history of malignant neoplasm of prostate
CPT/HCPCS: 36415; 36416; 71045; 80048; 80053; 83880; 84484; 85025; 93005; 93306; 93798; 94640; 96374; J1650; J1815; J1940; J2920; J7512; J7620

== ENCOUNTER 2019-06-10 20:57 | Emergency (ER) | payer OTHER, MEDICARE ==
--- NOTE | 2019-06-10 22:10 | RAD ---
RADIOGRAPH CHEST 1 VIEW: DATE: 06/10/2019 HISTORY: 84-year-old male with numbness FINDINGS: The thoracic aorta is tortuous and ectatic. There is no evidence of airspace density, cardiomegaly, p ulmonary edema, or pneumothorax. The lateral costophrenic angles are not effaced. No interval change since 05/05/2019. IMPRESSION: 1) No acute pulmonary findings. 2) ectasia of thoracic aorta.
[2019-06-10 22:20] LABS: #Basophils 0.1 thou/uL (0.0-0.2); #Eosinphils 0.2 thou/uL (0.0-0.7); #Lymphocytes 3.1 thou/uL (1.20-3.40); #Monocytes 0.8 thou/uL (0.11-0.59); #Neutrophils 5.7 thou/uL (1.40-6.50); %Basophils 0.8 % (0.0-1.0); %Eosinophils 2.2 % (0.0-10.0); %Lymphocytes 31.4 % (21.0-51.0); %Monocytes 7.7 % (0.0-10.0); %Neutrophils 57.9 % (42.0-75.0); Mean Corpuscular HGB CONC 32.3 g/dL (32.0-36.0); Mean Corpuscular Hemoglobin 27.4 pg (27.0-31.0); Mean Corpuscular Volume 84.8 fL (78.0-98.0); Mean Platelet Volume 7.7 fL (7.4-10.4); Platelet Count 290 thou/uL (130-400); RBC Distribution Width 15.8 % (11.5-14.5); Red Blood Cell (RBC) Count 3.64 mill/uL (4.70-6.10); White Blood Cell (WBC) Count 9.8 thou/uL (4.8-10.8)
[2019-06-10 22:43] LABS: ALT (SGPT) 15 U/L (8-55); AST (SGOT) 14 U/L (5-34); Albumin 4.1 g/dL (3.4-4.8); Alkaline Phosphatase 140 U/L (40-110); Anion Gap 12 mmol/L (10-20); BUN (Urea Nitrogen) 18 mg/dL (8.4-25.7); Bilirubin, Total Less than 0.2 mg/dL (0.2-1.2); CK (CPK) 72 U/L (30-200); Calc. Creatinine Clearance 0 mL/min (70-130); Calcium 9.6 mg/dL (7.8-10.44); Carbon Dioxide 30 mmol/L (23-31); Chloride 103 mmol/L (98-107); Estimated GFR-MDRD 77; Globulin 4.2 g/dL (2.4-3.5); Glucose 87 mg/dL (83-110); Magnesium 2.3 mg/dL (1.6-2.6); Potassium 5.1 mmol/L (3.5-5.1); Protein, Total 8.3 g/dL (5.8-8.1); Sodium 140 mmol/L (136-145)
[2019-06-10 22:45] LABS: Bilirubin Negative (Negative); Blood, Urine Negative (Negative); Clarity Clear (Clear); Glucose, Urine (Dipstick) Normal (Negative); Leukocyte Negative Leu/uL (Negative); Nitrite Negative (Negative); Protein, Urine (Dipstick) Negative (Neg-Trace); Urobilinogen Normal mg/dL (Less than 2)
--- NOTE | 2019-06-10 23:07 | CT ---
CT BRAIN NONCONTRAST: DATE: 06/10/2019 HISTORY: 84-year-old male with acute bilateral hand paresthesia and hypesthesia COMPARISON: 10/30/2017 FINDINGS: There is no evidence of acute intra-axial or extra-axial hemorrhage. There is no midline shift or any other mass effect. There is no extra-axial fluid collection. There is no evidence of obstructive hydrocephalus. Calvarium is intact. There is diffuse brain parenchymal volume loss. There are low att enuation areas in the white matter. These are nonspecific, but in a patient of this age, they are probably chronic ischemic white matter changes due to microvascular atherosclerosis. There is a new f inding of a patchy 1 cm low-density lesion in the right side of the shital. IMPRESSION: 1) No acute intracranial findings. 2) involutional changes and chronic ischemic white matter changes. 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
== END 2019-06-10 23:26 | disposition home or self-care (01) ==
LOC: ERS 20:57
DX: R20.2 Paresthesia of skin (principal); E11.9 Type 2 diabetes mellitus without complications; E78.5 Hyperlipidemia, unspecified; E78.00 Pure hypercholesterolemia, unspecified; I10 Essential (primary) hypertension; F03.90 Unspecified dementia, unspecified severity, without behavioral disturbance, psychotic disturbance, mood disturbance, and anxiety; F17.290 Nicotine dependence, other tobacco product, uncomplicated; Z79.899 Other long term (current) drug therapy; Z79.82 Long term (current) use of aspirin; Z79.84 Long term (current) use of oral hypoglycemic drugs; Z86.73 Personal history of transient ischemic attack (TIA), and cerebral infarction without residual deficits
CPT/HCPCS: 70450; 71045; 80053; 81003; 82550; 83735; 84484; 85025; 93005

== ENCOUNTER 2021-04-06 11:23 | Observation (INO) | payer MEDICARE, OTHER ==
[2021-04-06 11:56] LABS: #Eosinphils 0.2 thou/uL (0.0-0.7); #Lymphocytes 1.7 thou/uL (1.20-3.40); #Monocytes 0.7 thou/uL (0.11-0.59); #Neutrophils 4.6 thou/uL (1.40-6.50); %Basophils 0.5 % (0.0-1.0); %Eosinophils 2.7 % (0.0-10.0); %Lymphocytes 23.7 % (21.0-51.0); %Monocytes 9.4 % (0.0-10.0); %Neutrophils 63.7 % (42.0-75.0); Hemoglobin 9.4 g/dL (14.0-18.0); Mean Corpuscular Hemoglobin 27.4 pg (27.0-31.0); Mean Corpuscular Volume 88.2 fL (78.0-98.0); Mean Platelet Volume 8.2 fL (7.4-10.4); Platelet Count 227 thou/uL (130-400); RBC Distribution Width 15.8 % (11.5-14.5); Red Blood Cell (RBC) Count 3.42 mill/uL (4.70-6.10); White Blood Cell (WBC) Count 7.3 thou/uL (4.8-10.8)
[2021-04-06 12:24] LABS: ALT (SGPT) 13 U/L (8-55); AST (SGOT) 11 U/L (5-34); Albumin 2.7 g/dL (3.4-4.8); Alkaline Phosphatase 82 U/L (40-110); Anion Gap 11 mmol/L (10-20); BUN (Urea Nitrogen) 18 mg/dL (8.4-25.7); Bilirubin, Total Less than 0.2 mg/dL (0.2-1.2); Calc. Creatinine Clearance 0 mL/min (70-130); Calcium 6.3 mg/dL (7.8-10.44); Carbon Dioxide 20 mmol/L (23-31); Chloride 116 mmol/L (98-107); Globulin 2.5 g/dL (2.4-3.5); Glucose 126 mg/dL (83-110); Potassium 3.2 mmol/L (3.5-5.1); Protein, Total 5.2 g/dL (5.8-8.1); Sodium 144 mmol/L (136-145)
[2021-04-06] MEDS ORDERED: Nitroglycerin 0.4 MG TAB (25 Tab Bottle) SL PRN (14:43)
[2021-04-06] MEDS ORDERED: Dextrose 50% Abboject 50 ML SYRINGE SLOW IVP PRN (14:43)
[2021-04-06] MEDS ORDERED: Acetaminophen 325 MG TAB PO PRN (14:43)
[2021-04-06] MEDS ORDERED: HumaLOG 300 UNITS/3 ML VIAL SC PRN ×2 (14:43)
[2021-04-06] MEDS ORDERED: Dextrose 5% in Water 1,000 ML IV PRN (14:43)
[2021-04-06] MEDS ORDERED: Potassium Chloride 20 MEQ TAB PO SCH (15:00)
[2021-04-06 15:30] VITALS: BMI 34.9
[2021-04-06 16:28] LABS: Magnesium 2.2 mg/dL (1.6-2.6)
[2021-04-06 16:35] LABS: Troponin I Less than 0.010 ng/mL (< 0.028)
[2021-04-06] MEDS: hydrALAZINE 20 MG/ML VIAL SLOW IVP PRN (18:10)
[2021-04-06] MEDS: Furosemide 20 MG TAB PO SCH (18:15)
[2021-04-06] MEDS: hydrALAZINE 25 MG TAB PO SCH (18:50)
[2021-04-06] MEDS: levETIRAcetam 500 MG TAB PO SCH (20:28)
[2021-04-06] MEDS ORDERED: Tamsulosin HCl 0.4 MG CAP PO SCH (21:00)
[2021-04-06] MEDS ORDERED: Lantus 1000 UNITS/10 ML VIAL SC SCH (21:00)
[2021-04-06] MEDS ORDERED: Atorvastatin Calcium 40 MG TAB PO SCH (21:00)
[2021-04-06] MEDS ORDERED: Finasteride 5 MG TAB PO SCH (21:00)
[2021-04-07] MEDS: hydrALAZINE 20 MG/ML VIAL SLOW IVP PRN (04:16)
[2021-04-07 04:36] LABS: #Eosinphils 0.2 thou/uL (0.0-0.7); #Lymphocytes 1.8 thou/uL (1.20-3.40); #Monocytes 0.9 thou/uL (0.11-0.59); #Neutrophils 5.4 thou/uL (1.40-6.50); %Basophils 0.4 % (0.0-1.0); %Eosinophils 2.2 % (0.0-10.0); %Lymphocytes 21.9 % (21.0-51.0); %Monocytes 10.2 % (0.0-10.0); %Neutrophils 65.3 % (42.0-75.0); Hemoglobin 10.3 g/dL (14.0-18.0); Mean Corpuscular HGB CONC 30.5 g/dL (32.0-36.0); Mean Corpuscular Hemoglobin 26.7 pg (27.0-31.0); Mean Corpuscular Volume 87.5 fL (78.0-98.0); Mean Platelet Volume 8.8 fL (7.4-10.4); Platelet Count 252 thou/uL (130-400); RBC Distribution Width 16.1 % (11.5-14.5); Red Blood Cell (RBC) Count 3.84 mill/uL (4.70-6.10); White Blood Cell (WBC) Count 8.3 thou/uL (4.8-10.8)
[2021-04-07 05:11] LABS: Anion Gap 12 mmol/L (10-20); BUN (Urea Nitrogen) 19 mg/dL (8.4-25.7); Calc. Creatinine Clearance 82 mL/min (70-130); Calcium 9.3 mg/dL (7.8-10.44); Carbon Dioxide 29 mmol/L (23-31); Cardiac Risk 3.3 (Less than 4.5); Chloride 102 mmol/L (98-107); Cholesterol 158 mg/dl (< 200 Desired); Glucose 115 mg/dL (83-110); HDL Cholesterol 48 mg/dL (>60 Neg Risk); LDL Cholesterol, Calculated 98 mg/dL; Potassium 4.3 mmol/L (3.5-5.1); Sodium 139 mmol/L (136-145); Triglycerides 60 mg/dL (Less than 150)
[2021-04-07] MEDS ORDERED: Senokot S 8.6-50 MG TAB PO PRN (07:32)
[2021-04-07] MEDS ORDERED: Hydrocerin (Eucerin) Cream 120 gm Jar TOP PRN (07:32)
[2021-04-07] MEDS ORDERED: Sodium Chloride 0.65% Nasal 44 ML BOT EA NARE PRN (07:32)
[2021-04-07] MEDS ORDERED: Loperamide HCl 2 MG CAP PO PRN (07:32)
[2021-04-07] MEDS ORDERED: Ondansetron ODT 4 MG TAB PO PRN (07:32)
[2021-04-07] MEDS ORDERED: GUAIFENESIN SF SOLN 200 MG/10 ML UDCUP PO PRN (07:32)
[2021-04-07] MEDS ORDERED: Loratadine 10 MG TAB PO PRN (07:32)
[2021-04-07] MEDS ORDERED: Cepastat Lozenges 1 LOZ PO PRN (07:32)
[2021-04-07] MEDS ORDERED: Calcium Carbonate 500 MG ChewTAB PO PRN (07:32)
[2021-04-07] MEDS ORDERED: Ondansetron PF 4 MG/2 ML Vial IVP PRN (07:32)
[2021-04-07] MEDS ORDERED: Zolpidem Tartrate 5 MG TAB PO PRN (07:32)
[2021-04-07] MEDS ORDERED: Bisacodyl 5 MG TAB PO PRN (07:32)
[2021-04-07] MEDS ORDERED: Artificial Tear Sol 15 ML BOT EA EYE PRN (07:32)
[2021-04-07] MEDS: levETIRAcetam 500 MG TAB PO SCH (07:37)
[2021-04-07 07:41] VITALS: TEMP 97.4
[2021-04-07] MEDS ORDERED: Losartan 25 MG TAB PO SCH (09:00)
[2021-04-07] MEDS ORDERED: Amlodipine 10 MG TAB PO SCH (09:00)
[2021-04-07] MEDS ORDERED: Potassium Chloride 20 MEQ TAB PO SCH (09:00)
[2021-04-07] MEDS ORDERED: Aspirin Chewable 81 MG TAB PO SCH (09:00)
[2021-04-07] MEDS ORDERED: Aspirin 81 mg Enteric Coated Tablet PO SCH (09:00)
[2021-04-07] MEDS ORDERED: hydrALAZINE 25 MG TAB PO SCH (09:00)
[2021-04-07] MEDS ORDERED: Furosemide 20 MG TAB PO SCH (09:00)
[2021-04-07] MEDS ORDERED: Lantus 1000 UNITS/10 ML VIAL SC SCH (09:00)
[2021-04-07] MEDS ORDERED: Regadenoson 0.4 MG/5 ML SYRINGE ONE (09:33)
[2021-04-07] MEDS: Carvedilol 25 MG TAB PO SCH ×2 (14:49→16:26)
[2021-04-07] MEDS: hydrALAZINE 25 MG TAB PO SCH (16:26)
[2021-04-07] MEDS: Furosemide 20 MG TAB PO SCH (16:26)
[2021-04-07 16:54] VITALS: BP 169/63
[2021-04-07 18:36] LABS: SARS-CoV-2 PCR by NAA Not Detected (NotDetected)
== END 2021-04-07 17:55 | disposition home or self-care (01) ==
LOC: ERS 11:23 → INTOOBSV 13:47 → 2NO 13:47
PROVIDERS: ADMIT Internal Medicine; ATTEND Internal Medicine
DX: R07.9 Chest pain, unspecified (principal); E87.6 Hypokalemia; I11.0 Hypertensive heart disease with heart failure; I50.32 Chronic diastolic (congestive) heart failure; I08.1 Rheumatic disorders of both mitral and tricuspid valves; E11.9 Type 2 diabetes mellitus without complications; J44.9 Chronic obstructive pulmonary disease, unspecified; E78.5 Hyperlipidemia, unspecified; H91.90 Unspecified hearing loss, unspecified ear; G40.909 Epilepsy, unspecified, not intractable, without status epilepticus; D63.8 Anemia in other chronic diseases classified elsewhere; N40.0 Benign prostatic hyperplasia without lower urinary tract symptoms; E66.9 Obesity, unspecified; Z68.35 Body mass index [BMI] 35.0-35.9, adult; Z20.822 Contact with and (suspected) exposure to COVID-19; Z87.891 Personal history of nicotine dependence; Z85.46 Personal history of malignant neoplasm of prostate; Z79.1 Long term (current) use of non-steroidal anti-inflammatories (NSAID); Z79.82 Long term (current) use of aspirin; Z79.4 Long term (current) use of insulin; Z79.51 Long term (current) use of inhaled steroids; Z79.899 Other long term (current) drug therapy
CPT/HCPCS: 71045; 78452; 80048; 80053; 80061; 82962 ×2; 83735; 83880; 84484 ×2; 85025 ×2; 93005; 93017; 93306; 99285; A9500; U0003; U0005; 36415; 36416; J0360; J1815; J2785

== ENCOUNTER 2021-12-13 20:31 | Inpatient (IN) | payer MEDICARE, OTHER ==
[~2021-12-13 20:31] MED LIST changes: -ISOVUE-370 76%-LOCM 1 ML ONE; +Iopamidol-370 76% 500 ML 1 ML ONE
[2021-12-13] MEDS ORDERED: Aspirin Chewable 81 MG TAB ONE (21:29)
[2021-12-13 21:50] LABS: Hemoglobin 10.8 g/dL (14.0-18.0); Mean Corpuscular Hemoglobin 27.1 pg (27.0-31.0); Mean Corpuscular Volume 87.3 fL (78.0-98.0); Mean Platelet Volume 8.5 fL (7.4-10.4); Platelet Count 327 thou/uL (130-400); Red Blood Cell (RBC) Count 3.97 mill/uL (4.70-6.10); White Blood Cell (WBC) Count 20.8 thou/uL (4.8-10.8)
[2021-12-13] MEDS ORDERED: Ondansetron PF 4 MG/2 ML Vial ONE (22:04)
[2021-12-13 22:14] LABS: Band 9 % (5-11); Lymphocytes 9 % (21-51); MDiff Complete? YES; Monocytes 3 % (0-10); Neutrophil 79 % (42-75)
[2021-12-13 22:21] LABS: ALT (SGPT) 17 U/L (8-55); AST (SGOT) 20 U/L (5-34); Albumin 4.3 g/dL (3.4-4.8); Alkaline Phosphatase 119 U/L (40-110); Anion Gap 17 mmol/L (10-20); BUN (Urea Nitrogen) 18 mg/dL (8.4-25.7); Bilirubin, Total 0.2 mg/dL (0.2-1.2); CK (CPK) 137 U/L (30-200); Calc. Creatinine Clearance 0 mL/min (70-130); Calcium 9.4 mg/dL (7.8-10.44); Carbon Dioxide 28 mmol/L (23-31); Chloride 97 mmol/L (98-107); Globulin 4.9 g/dL (2.4-3.5); Glucose 146 mg/dL (83-110); Lipase 13 U/L (8-78); Potassium 4.6 mmol/L (3.5-5.1); Protein, Total 9.2 g/dL (5.8-8.1); Sodium 137 mmol/L (136-145)
[2021-12-13] MEDS ORDERED: Cefepime 2 GM VIAL ONE (22:33)
[2021-12-13] MEDS ORDERED: cloNIDine 0.1 MG TAB ONE (22:35)
[2021-12-13] MEDS ORDERED: cefTRIAXone\\ROCEPHIN 2 GM VIAL ONE (22:35)
[2021-12-13 23:25] LABS: Bilirubin Negative (Negative); Blood, Urine Negative (Negative); Clarity Clear (Clear); Glucose, Urine (Dipstick) Normal (Negative); Ketone, Urine Negative (Negative); Leukocyte Negative Leu/uL (Negative); Nitrite Negative (Negative); Protein, Urine (Dipstick) Negative (Neg-Trace); Specific Gravity, Urine 1.014 (1.002-1.036); Urobilinogen Normal mg/dL (Less than 2)
[2021-12-13] MEDS ORDERED: Azithromycin 500 MG VIAL ONE (23:40)
[2021-12-13] MEDS ORDERED: Bisacodyl 5 MG TAB PO PRN (23:42)
[2021-12-13] MEDS ORDERED: Acetaminophen 325 MG TAB PO PRN (23:42)
[2021-12-13] MEDS ORDERED: Dextrose 5% in Water 1,000 ML IV PRN (23:42)
[2021-12-13] MEDS ORDERED: HumaLOG 300 UNITS/3 ML VIAL SC PRN ×2 (23:42)
[2021-12-13] MEDS ORDERED: Dextrose 50% Abboject 50 ML SYRINGE SLOW IVP PRN (23:42)
[2021-12-13] MEDS ORDERED: HYDROcodone/Acetaminophen 10/325 mg Tablet PO PRN (23:42)
[2021-12-13] MEDS ORDERED: Ondansetron PF 4 MG/2 ML Vial IVP PRN (23:42)
[2021-12-13] MEDS ORDERED: Albuterol 200 PUFF (6.7GM INHALER) INH PRN (23:45)
[2021-12-13] MEDS ORDERED: Vancomycin 1 GM in Premix Bag 1 BAG IVPB SCH (23:45)
[2021-12-13] MEDS ORDERED: GUAIFENESIN SF SOLN 200 MG/10 ML UDCUP PO PRN (23:47)
[2021-12-13] MEDS ORDERED: hydrALAZINE 20 MG/ML VIAL SLOW IVP PRN (23:47)
[2021-12-14] MEDS ORDERED: Azithromycin 500 MG VIAL ONE (00:47)
[2021-12-14 01:29] VITALS: BMI 34.4
[2021-12-14 01:32] LABS: Troponin I 0.127 ng/mL (< 0.028)
[2021-12-14 01:48] LABS: Lactic Acid 1.3 mmol/L (0.5-2.2)
[2021-12-14] MEDS ORDERED: VANCOMYCIN 2 GRAM/500 ML BAG 2 GM in Premix Bag 1 BAG IVPB SCH (02:00)
[2021-12-14 04:44] LABS: Hemoglobin 9.5 g/dL (14.0-18.0); Mean Corpuscular HGB CONC 31.1 g/dL (32.0-36.0); Mean Corpuscular Hemoglobin 27.1 pg (27.0-31.0); Mean Corpuscular Volume 87.2 fL (78.0-98.0); Mean Platelet Volume 8.3 fL (7.4-10.4); Platelet Count 272 thou/uL (130-400); RBC Distribution Width 15.7 % (11.5-14.5); White Blood Cell (WBC) Count 20.5 thou/uL (4.8-10.8)
[2021-12-14 04:58] LABS: ALT (SGPT) 13 U/L (8-55); AST (SGOT) 15 U/L (5-34); Albumin 3.6 g/dL (3.4-4.8); Alkaline Phosphatase 99 U/L (40-110); Anion Gap 13 mmol/L (10-20); BUN (Urea Nitrogen) 14 mg/dL (8.4-25.7); Bilirubin, Total 0.3 mg/dL (0.2-1.2); Calc. Creatinine Clearance 76 mL/min (70-130); Calcium 8.3 mg/dL (7.8-10.44); Carbon Dioxide 26 mmol/L (23-31); Chloride 100 mmol/L (98-107); Globulin 3.9 g/dL (2.4-3.5); Glucose 151 mg/dL (83-110); Potassium 3.9 mmol/L (3.5-5.1); Protein, Total 7.5 g/dL (5.8-8.1); Sodium 135 mmol/L (136-145)
[2021-12-14 05:11] LABS: Band 22 % (5-11); Lymphocytes 10 % (21-51); MDiff Complete? YES; Monocytes 3 % (0-10); Neutrophil 65 % (42-75)
[2021-12-14 05:30] LABS: Troponin I 0.409 ng/mL (< 0.028)
[2021-12-14 08:38] LABS: Troponin I 1.103 ng/mL (< 0.028)
[2021-12-14] MEDS ORDERED: Enoxaparin Sodium 30 MG/0.3 ML SYRINGE SC SCH (09:00)
[2021-12-14] MEDS: Cefepime 2 GM in Sodium Chloride 0.9% 100 ML IVPB SCH ×2 (10:59→20:50)
[2021-12-14] MEDS: hydrALAZINE 25 MG TAB PO SCH ×3 (11:00→20:51)
[2021-12-14] MEDS: Aspirin 81 mg Enteric Coated Tablet PO SCH (11:00)
[2021-12-14] MEDS: Losartan 25 MG TAB PO SCH (11:00)
[2021-12-14] MEDS: levETIRAcetam 500 MG TAB PO SCH ×2 (11:01→20:51)
[2021-12-14] MEDS: Potassium Chloride 10 MEQ TAB PO SCH (11:01)
[2021-12-14] MEDS: Furosemide 40 MG TAB PO SCH (11:01)
[2021-12-14] MEDS: Amlodipine 10 MG TAB PO SCH (11:01)
[2021-12-14] MEDS: Insulin Glargine 30 UNITS/0.3 ML VIAL SC SCH ×2 (11:02→20:52)
[2021-12-14] MEDS ORDERED: Nitroglycerin 0.4 MG TAB (25 Tab Bottle) SL PRN (12:46)
[2021-12-14] MEDS: metFORMIN 500 MG TAB PO SCH ×2 (13:14→16:40)
[2021-12-14] MEDS ORDERED: Albuterol Sulfate 2.5 mg/3 ml Neb NEB PRN (15:00)
[2021-12-14] MEDS: Furosemide 20 MG TAB PO SCH (16:38)
[2021-12-14] MEDS ORDERED: Furosemide 20 MG TAB PO SCH (18:00)
[2021-12-14] MEDS: Finasteride 5 MG TAB PO SCH (20:51)
[2021-12-14] MEDS: Enoxaparin Sodium 30 MG/0.3 ML SYRINGE SC SCH (20:51)
[2021-12-14] MEDS: Tamsulosin HCl 0.4 MG CAP PO SCH (20:51)
[2021-12-14] MEDS: Atorvastatin Calcium 40 MG TAB PO SCH (20:52)
[2021-12-15] MEDS ORDERED: VANCOMYCIN 1.75 GM/500 ML BAG 1.75 GM in Premix Bag 1 BAG IVPB SCH (02:00)
[2021-12-15 07:32] LABS: #Eosinphils 0.1 thou/uL (0.0-0.7); #Lymphocytes 1.7 thou/uL (1.20-3.40); #Monocytes 1.4 thou/uL (0.11-0.59); #Neutrophils 10.5 thou/uL (1.40-6.50); %Basophils 0.1 % (0.0-1.0); %Eosinophils 0.8 % (0.0-10.0); %Lymphocytes 12.3 % (21.0-51.0); %Monocytes 10.3 % (0.0-10.0); %Neutrophils 76.5 % (42.0-75.0); Hemoglobin 9.1 g/dL (14.0-18.0); Mean Corpuscular HGB CONC 33.4 g/dL (32.0-36.0); Mean Corpuscular Hemoglobin 28.2 pg (27.0-31.0); Mean Corpuscular Volume 84.6 fL (78.0-98.0); Mean Platelet Volume 7.9 fL (7.4-10.4); Platelet Count 274 thou/uL (130-400); RBC Distribution Width 15.9 % (11.5-14.5); Red Blood Cell (RBC) Count 3.22 mill/uL (4.70-6.10); White Blood Cell (WBC) Count 13.7 thou/uL (4.8-10.8)
[2021-12-15 07:50] LABS: Anion Gap 12 mmol/L (10-20); BUN (Urea Nitrogen) 14 mg/dL (8.4-25.7); Calc. Creatinine Clearance 84 mL/min (70-130); Calcium 9.3 mg/dL (7.8-10.44); Carbon Dioxide 27 mmol/L (23-31); Chloride 101 mmol/L (98-107); Glucose 105 mg/dL (83-110); Potassium 3.8 mmol/L (3.5-5.1); Sodium 136 mmol/L (136-145)
[2021-12-15] MEDS: metFORMIN 500 MG TAB PO SCH ×2 (09:05→17:26)
[2021-12-15] MEDS: Potassium Chloride 10 MEQ TAB PO SCH (09:05)
[2021-12-15] MEDS: Losartan 25 MG TAB PO SCH (09:05)
[2021-12-15] MEDS: Amlodipine 10 MG TAB PO SCH (09:06)
[2021-12-15] MEDS: Carvedilol 25 MG TAB PO SCH ×2 (09:06→17:26)
[2021-12-15] MEDS: Furosemide 40 MG TAB PO SCH (09:06)
[2021-12-15] MEDS: Enoxaparin Sodium 30 MG/0.3 ML SYRINGE SC SCH ×2 (09:07→20:33)
[2021-12-15] MEDS: hydrALAZINE 25 MG TAB PO SCH ×3 (09:07→20:33)
[2021-12-15] MEDS: Loratadine 10 MG TAB PO SCH (09:07)
[2021-12-15] MEDS: Aspirin 81 mg Enteric Coated Tablet PO SCH (09:07)
[2021-12-15] MEDS: levETIRAcetam 500 MG TAB PO SCH ×2 (09:08→20:33)
[2021-12-15] MEDS: Cefepime 2 GM in Sodium Chloride 0.9% 100 ML IVPB SCH ×2 (09:08→20:33)
[2021-12-15] MEDS: Insulin Glargine 30 UNITS/0.3 ML VIAL SC SCH ×2 (09:08→21:18)
[2021-12-15] MEDS: Furosemide 20 MG TAB PO SCH (17:26)
[2021-12-15] MEDS: Finasteride 5 MG TAB PO SCH (20:32)
[2021-12-15] MEDS: Tamsulosin HCl 0.4 MG CAP PO SCH (20:32)
[2021-12-15] MEDS: Atorvastatin Calcium 40 MG TAB PO SCH (20:33)
[2021-12-16 01:24] LABS: Vancomycin, Trough 12.8 ug/mL
[2021-12-16] MEDS ORDERED: VANCOMYCIN 2 GRAM/500 ML BAG 2 GM in Premix Bag 1 BAG IVPB SCH (02:00)
[2021-12-16 05:40] LABS: #Eosinphils 0.2 thou/uL (0.0-0.7); #Lymphocytes 1.3 thou/uL (1.20-3.40); #Monocytes 1.1 thou/uL (0.11-0.59); #Neutrophils 7.7 thou/uL (1.40-6.50); %Basophils 0.4 % (0.0-1.0); %Eosinophils 1.8 % (0.0-10.0); %Monocytes 10.4 % (0.0-10.0); %Neutrophils 74.4 % (42.0-75.0); Hemoglobin 8.2 g/dL (14.0-18.0); Mean Corpuscular HGB CONC 33.1 g/dL (32.0-36.0); Mean Corpuscular Hemoglobin 28.1 pg (27.0-31.0); Mean Corpuscular Volume 84.9 fL (78.0-98.0); Mean Platelet Volume 7.8 fL (7.4-10.4); Platelet Count 271 thou/uL (130-400); RBC Distribution Width 15.7 % (11.5-14.5); Red Blood Cell (RBC) Count 2.91 mill/uL (4.70-6.10); White Blood Cell (WBC) Count 10.3 thou/uL (4.8-10.8)
[2021-12-16 06:00] LABS: Anion Gap 11 mmol/L (10-20); BUN (Urea Nitrogen) 12 mg/dL (8.4-25.7); Calc. Creatinine Clearance 86 mL/min (70-130); Calcium 9.1 mg/dL (7.8-10.44); Carbon Dioxide 29 mmol/L (23-31); Chloride 102 mmol/L (98-107); Glucose 83 mg/dL (83-110); Potassium 3.3 mmol/L (3.5-5.1); Sodium 139 mmol/L (136-145)
[2021-12-16] MEDS ORDERED: Electrolyte Replacement Protocol 1 EACH FS SCH (08:15)
[2021-12-16] MEDS ORDERED: Potassium Chloride 20 MEQ TAB PO SCH (08:30)
[2021-12-16] MEDS ORDERED: Magnesium 2 GM/50 ML(in water) 2 GM in Premix Bag 1 BAG IVPB SCH (09:00)
[2021-12-16] MEDS: metFORMIN 500 MG TAB PO SCH ×2 (09:24→16:21)
[2021-12-16] MEDS: Enoxaparin Sodium 30 MG/0.3 ML SYRINGE SC SCH ×2 (09:24→20:51)
[2021-12-16] MEDS: Carvedilol 25 MG TAB PO SCH ×2 (09:24→16:21)
[2021-12-16] MEDS: Aspirin 81 mg Enteric Coated Tablet PO SCH (09:24)
[2021-12-16] MEDS: levETIRAcetam 500 MG TAB PO SCH ×2 (09:25→20:52)
[2021-12-16] MEDS: Potassium Chloride 10 MEQ TAB PO SCH (09:25)
[2021-12-16] MEDS: Insulin Glargine 30 UNITS/0.3 ML VIAL SC SCH ×2 (09:25→20:52)
[2021-12-16] MEDS: Losartan 25 MG TAB PO SCH (09:25)
[2021-12-16] MEDS: Furosemide 40 MG TAB PO SCH (09:25)
[2021-12-16] MEDS: Amlodipine 10 MG TAB PO SCH (09:26)
[2021-12-16] MEDS: Loratadine 10 MG TAB PO SCH (09:27)
[2021-12-16] MEDS: hydrALAZINE 25 MG TAB PO SCH ×3 (09:42→23:13)
[2021-12-16] MEDS: Cefepime 2 GM in Sodium Chloride 0.9% 100 ML IVPB SCH ×2 (10:48→20:51)
[2021-12-16] MEDS: Furosemide 20 MG TAB PO SCH (16:21)
[2021-12-16] MEDS: Tamsulosin HCl 0.4 MG CAP PO SCH (20:52)
[2021-12-16] MEDS: Atorvastatin Calcium 40 MG TAB PO SCH (20:52)
[2021-12-16] MEDS: Finasteride 5 MG TAB PO SCH (20:52)
[2021-12-17 04:57] LABS: #Basophils 0.1 thou/uL (0.0-0.2); #Eosinphils 0.2 thou/uL (0.0-0.7); #Lymphocytes 1.5 thou/uL (1.20-3.40); #Monocytes 0.9 thou/uL (0.11-0.59); #Neutrophils 4.9 thou/uL (1.40-6.50); %Eosinophils 3.2 % (0.0-10.0); %Lymphocytes 19.2 % (21.0-51.0); %Monocytes 11.9 % (0.0-10.0); %Neutrophils 64.7 % (42.0-75.0); Hemoglobin 8.3 g/dL (14.0-18.0); Mean Corpuscular Hemoglobin 27.7 pg (27.0-31.0); Mean Corpuscular Volume 86.5 fL (78.0-98.0); Mean Platelet Volume 7.6 fL (7.4-10.4); Platelet Count 282 thou/uL (130-400); RBC Distribution Width 15.7 % (11.5-14.5); White Blood Cell (WBC) Count 7.5 thou/uL (4.8-10.8)
[2021-12-17 05:24] LABS: Anion Gap 11 mmol/L (10-20); BUN (Urea Nitrogen) 12 mg/dL (8.4-25.7); Calc. Creatinine Clearance 88 mL/min (70-130); Carbon Dioxide 29 mmol/L (23-31); Chloride 103 mmol/L (98-107); Glucose 86 mg/dL (83-110); Potassium 3.7 mmol/L (3.5-5.1); Sodium 139 mmol/L (136-145)
[2021-12-17] MEDS: Furosemide 40 MG TAB PO SCH ×2 (05:30→14:33)
[2021-12-17] MEDS: Aspirin 81 mg Enteric Coated Tablet PO SCH (07:56)
[2021-12-17] MEDS: Potassium Chloride 10 MEQ TAB PO SCH (07:56)
[2021-12-17] MEDS: Carvedilol 25 MG TAB PO SCH ×2 (07:56→17:27)
[2021-12-17] MEDS: Enoxaparin Sodium 30 MG/0.3 ML SYRINGE SC SCH ×2 (07:57→20:52)
[2021-12-17] MEDS: Insulin Glargine 30 UNITS/0.3 ML VIAL SC SCH ×2 (07:57→20:52)
[2021-12-17] MEDS: Loratadine 10 MG TAB PO SCH (07:58)
[2021-12-17] MEDS: Losartan 25 MG TAB PO SCH (07:58)
[2021-12-17] MEDS: Doxycycline 100 MG CAP PO SCH ×2 (07:58→20:52)
[2021-12-17] MEDS: levETIRAcetam 500 MG TAB PO SCH ×2 (07:58→20:53)
[2021-12-17] MEDS: Amlodipine 10 MG TAB PO SCH (07:58)
[2021-12-17] MEDS: Cefdinir 300 MG CAP PO SCH ×2 (07:59→20:52)
[2021-12-17] MEDS: hydrALAZINE 25 MG TAB PO SCH ×3 (09:50→20:52)
[2021-12-17] MEDS ORDERED: Albuterol Sulfate 2.5 mg/3 ml Neb NEB PRN (19:00)
[2021-12-17] MEDS: Atorvastatin Calcium 40 MG TAB PO SCH (20:52)
[2021-12-17] MEDS: Finasteride 5 MG TAB PO SCH (20:52)
[2021-12-17] MEDS: Tamsulosin HCl 0.4 MG CAP PO SCH (20:53)
[2021-12-17] MEDS: Albuterol Sulfate 2.5 mg/3 ml Neb IPPB SCH (22:09)
[2021-12-18 04:59] LABS: #Eosinphils 0.3 thou/uL (0.0-0.7); #Lymphocytes 1.7 thou/uL (1.20-3.40); #Monocytes 0.9 thou/uL (0.11-0.59); #Neutrophils 4.9 thou/uL (1.40-6.50); %Basophils 0.6 % (0.0-1.0); %Eosinophils 3.3 % (0.0-10.0); %Lymphocytes 21.4 % (21.0-51.0); %Monocytes 11.6 % (0.0-10.0); %Neutrophils 63.1 % (42.0-75.0); Hemoglobin 8.4 g/dL (14.0-18.0); Mean Corpuscular Hemoglobin 26.9 pg (27.0-31.0); Mean Corpuscular Volume 86.9 fL (78.0-98.0); Mean Platelet Volume 7.9 fL (7.4-10.4); Platelet Count 298 thou/uL (130-400); RBC Distribution Width 15.6 % (11.5-14.5); Red Blood Cell (RBC) Count 3.12 mill/uL (4.70-6.10); White Blood Cell (WBC) Count 7.7 thou/uL (4.8-10.8)
[2021-12-18 05:21] LABS: ALT (SGPT) 41 U/L (8-55); AST (SGOT) 41 U/L (5-34); Albumin 3.6 g/dL (3.4-4.8); Alkaline Phosphatase 83 U/L (40-110); Anion Gap 14 mmol/L (10-20); BUN (Urea Nitrogen) 15 mg/dL (8.4-25.7); Bilirubin, Total 0.2 mg/dL (0.2-1.2); Calc. Creatinine Clearance 81 mL/min (70-130); Carbon Dioxide 27 mmol/L (23-31); Chloride 100 mmol/L (98-107); Glucose 89 mg/dL (83-110); Magnesium 2.2 mg/dL (1.6-2.6); Phosphorus 3.5 mg/dL (2.3-4.7); Potassium 3.5 mmol/L (3.5-5.1); Protein, Total 7.6 g/dL (5.8-8.1); Sodium 137 mmol/L (136-145)
[2021-12-18] MEDS: Furosemide 40 MG/4 ML VIAL SLOW IVP SCH ×2 (06:16→14:24)
[2021-12-18] MEDS: Albuterol Sulfate 2.5 mg/3 ml Neb IPPB SCH ×4 (07:30→19:21)
[2021-12-18] MEDS ORDERED: Potassium Chloride 20 MEQ TAB PO SCH (08:00)
[2021-12-18] MEDS: Doxycycline 100 MG CAP PO SCH ×2 (08:22→20:33)
[2021-12-18] MEDS: Cefdinir 300 MG CAP PO SCH ×2 (08:22→20:33)
[2021-12-18] MEDS: Losartan 25 MG TAB PO SCH (08:22)
[2021-12-18] MEDS: Amlodipine 10 MG TAB PO SCH (08:22)
[2021-12-18] MEDS: Aspirin 81 mg Enteric Coated Tablet PO SCH (08:23)
[2021-12-18] MEDS: Carvedilol 25 MG TAB PO SCH ×2 (08:23→17:51)
[2021-12-18] MEDS: levETIRAcetam 500 MG TAB PO SCH ×2 (08:23→20:33)
[2021-12-18] MEDS: Insulin Glargine 30 UNITS/0.3 ML VIAL SC SCH ×2 (08:23→20:35)
[2021-12-18] MEDS: Loratadine 10 MG TAB PO SCH (08:23)
[2021-12-18] MEDS: hydrALAZINE 25 MG TAB PO SCH ×3 (08:23→20:34)
[2021-12-18] MEDS: Potassium Chloride 20 MEQ TAB PO SCH ×2 (08:24→17:51)
[2021-12-18] MEDS: Enoxaparin Sodium 30 MG/0.3 ML SYRINGE SC SCH ×2 (08:26→20:42)
[2021-12-18] MEDS ORDERED: Polyethylene Glycol 3350 17 GM Packet PO PRN (12:41)
[2021-12-18] MEDS: Atorvastatin Calcium 40 MG TAB PO SCH (20:34)
[2021-12-18] MEDS: Tamsulosin HCl 0.4 MG CAP PO SCH (20:34)
[2021-12-18] MEDS: Finasteride 5 MG TAB PO SCH (20:34)
[2021-12-18] MEDS: Senokot S 8.6-50 MG TAB PO SCH (20:34)
[2021-12-19 04:30] LABS: #Eosinphils 0.2 thou/uL (0.0-0.7); #Lymphocytes 1.2 thou/uL (1.20-3.40); #Neutrophils 5.6 thou/uL (1.40-6.50); %Lymphocytes 14.6 % (21.0-51.0); %Monocytes 12.8 % (0.0-10.0); %Neutrophils 69.6 % (42.0-75.0); Hemoglobin 9.3 g/dL (14.0-18.0); Mean Corpuscular HGB CONC 31.6 g/dL (32.0-36.0); Mean Corpuscular Hemoglobin 27.5 pg (27.0-31.0); Mean Corpuscular Volume 86.9 fL (78.0-98.0); Platelet Count 310 thou/uL (130-400); RBC Distribution Width 15.6 % (11.5-14.5); White Blood Cell (WBC) Count 8.1 thou/uL (4.8-10.8)
[2021-12-19 04:52] LABS: Anion Gap 14 mmol/L (10-20); BUN (Urea Nitrogen) 16 mg/dL (8.4-25.7); Calc. Creatinine Clearance 76 mL/min (70-130); Calcium 9.3 mg/dL (7.8-10.44); Carbon Dioxide 28 mmol/L (23-31); Chloride 100 mmol/L (98-107); Glucose 91 mg/dL (83-110); Magnesium 2.2 mg/dL (1.6-2.6); Potassium 3.9 mmol/L (3.5-5.1); Sodium 138 mmol/L (136-145)
[2021-12-19] MEDS: Furosemide 40 MG/4 ML VIAL SLOW IVP SCH (05:52)
[2021-12-19] MEDS: Albuterol Sulfate 2.5 mg/3 ml Neb IPPB SCH (07:27)
[2021-12-19] MEDS: Enoxaparin Sodium 30 MG/0.3 ML SYRINGE SC SCH (09:16)
[2021-12-19] MEDS: Aspirin 81 mg Enteric Coated Tablet PO SCH (09:16)
[2021-12-19] MEDS: Amlodipine 10 MG TAB PO SCH (09:16)
[2021-12-19] MEDS: Carvedilol 25 MG TAB PO SCH (09:17)
[2021-12-19] MEDS: Senokot S 8.6-50 MG TAB PO SCH (09:17)
[2021-12-19] MEDS: Cefdinir 300 MG CAP PO SCH (09:17)
[2021-12-19] MEDS: Doxycycline 100 MG CAP PO SCH (09:17)
[2021-12-19] MEDS: hydrALAZINE 25 MG TAB PO SCH (09:17)
[2021-12-19] MEDS: Losartan 25 MG TAB PO SCH (09:17)
[2021-12-19] MEDS: levETIRAcetam 500 MG TAB PO SCH (09:17)
[2021-12-19] MEDS: Potassium Chloride 20 MEQ TAB PO SCH (09:17)
[2021-12-19] MEDS: Insulin Glargine 30 UNITS/0.3 ML VIAL SC SCH (09:18)
[2021-12-19] MEDS: Loratadine 10 MG TAB PO SCH (09:18)
[2021-12-19 12:05] VITALS: BP 130/57; TEMP 98.6
[2021-12-19] MEDS ORDERED: Furosemide 40 MG TAB PO SCH (14:00)
== END 2021-12-19 13:10 | disposition home health service (06) | DRG 871 ==
LOC: ERS 20:31 → 2NO 23:06
PROVIDERS: ADMIT Internal Medicine; ATTEND Internal Medicine
DX: A41.9 Sepsis, unspecified organism (principal); Z20.822 Contact with and (suspected) exposure to COVID-19; J96.01 Acute respiratory failure with hypoxia; I50.33 Acute on chronic diastolic (congestive) heart failure; J18.9 Pneumonia, unspecified organism; I21.4 Non-ST elevation (NSTEMI) myocardial infarction; E87.2 Acidosis; E78.5 Hyperlipidemia, unspecified; G40.909 Epilepsy, unspecified, not intractable, without status epilepticus; F03.90 Unspecified dementia, unspecified severity, without behavioral disturbance, psychotic disturbance, mood disturbance, and anxiety; H91.90 Unspecified hearing loss, unspecified ear; I11.0 Hypertensive heart disease with heart failure; F17.210 Nicotine dependence, cigarettes, uncomplicated; E11.621 Type 2 diabetes mellitus with foot ulcer; L97.529 Non-pressure chronic ulcer of other part of left foot with unspecified severity; I73.9 Peripheral vascular disease, unspecified; R65.20 Severe sepsis without septic shock; R91.8 Other nonspecific abnormal finding of lung field; I65.29 Occlusion and stenosis of unspecified carotid artery; Z86.73 Personal history of transient ischemic attack (TIA), and cerebral infarction without residual deficits; Z79.899 Other long term (current) drug therapy; Z79.84 Long term (current) use of oral hypoglycemic drugs; Z79.82 Long term (current) use of aspirin; Z79.4 Long term (current) use of insulin; Z98.890 Other specified postprocedural states
CPT/HCPCS: 36415; 36416; 71045; 71275; 76705; 80048; 80053; 80202; 81003; 82550; 83605; 83690; 83735; 83880; 84100; 84443; 84484; 85025; 87040; 87070; 87086; 87205; 93005; 96374; 96375; J0456; J0692; J0696; J1650; J1815; J1940; J2405; J3370; J3475; J3490; J7611; J7620; Q9967; U0003; U0005

== ENCOUNTER 2021-12-19 22:21 | Emergency (ER) | payer MEDICARE, OTHER ==
[2021-12-19] MEDS ORDERED: hydrALAZINE 20 MG/ML VIAL ONE (23:34)
[2021-12-19 23:46] LABS: Mean Corpuscular HGB CONC 31.6 g/dL (32.0-36.0); Mean Corpuscular Hemoglobin 27.4 pg (27.0-31.0); Mean Corpuscular Volume 86.6 fL (78.0-98.0); Mean Platelet Volume 7.4 fL (7.4-10.4); Platelet Count 334 thou/uL (130-400); RBC Distribution Width 15.9 % (11.5-14.5); Red Blood Cell (RBC) Count 3.67 mill/uL (4.70-6.10); White Blood Cell (WBC) Count 8.8 thou/uL (4.8-10.8)
[2021-12-20 00:03] LABS: Band 6 % (5-11); Eosinophils 1 % (0-10); Hypochromia SLIGHT = 6-15 cells (100X) (0-5/hpf); Lymphocytes 21 % (21-51); MDiff Complete? YES; Metamyelocyte 1 % (0-0); Monocytes 17 % (0-10); Neutrophil 52 % (42-75); Platelet Morphology Comment Appears Adequate; Reactive Lymphocytes 2 % (0-10)
[2021-12-20 01:24] LABS: CKMB 0.7 ng/mL (0-6.6)
[2021-12-20 01:26] LABS: ALT (SGPT) 62 U/L (8-55); AST (SGOT) 56 U/L (5-34); Acetaminophen Less than 10.0 mcg/mL (10.0-30.0); Albumin 4.1 g/dL (3.4-4.8); Alcohol Less than 10 mg/dL (Less than 10); Alkaline Phosphatase 108 U/L (40-110); Anion Gap 17 mmol/L (10-20); BUN (Urea Nitrogen) 20 mg/dL (8.4-25.7); Bilirubin, Total 0.2 mg/dL (0.2-1.2); Calc. Creatinine Clearance 0 mL/min (70-130); Calcium 9.6 mg/dL (7.8-10.44); Carbon Dioxide 27 mmol/L (23-31); Chloride 98 mmol/L (98-107); Globulin 4.3 g/dL (2.4-3.5); Glucose 90 mg/dL (83-110); Potassium 4.2 mmol/L (3.5-5.1); Protein, Total 8.4 g/dL (5.8-8.1); Salicylate Less than 8.0 mg/dL (15.0-30.0); Sodium 138 mmol/L (136-145)
[2021-12-20 01:33] LABS: Bacteria/HPF None Seen HPF (None Seen); Bilirubin Negative (Negative); Blood, Urine Negative (Negative); Clarity Clear (Clear); Glucose, Urine (Dipstick) Normal (Negative); Ketone, Urine Negative (Negative); Leukocyte Negative Leu/uL (Negative); Nitrite Negative (Negative); Protein, Urine (Dipstick) 50 mg/dL (Neg-Trace); RBC/HPF 0-3 HPF (0-3); Specific Gravity, Urine 1.022 (1.002-1.036); Squamous Epithelial 0-3 HPF (0-3); Urobilinogen Normal mg/dL (Less than 2); WBC/HPF 0-3 HPF (0-3)
[2021-12-20 01:40] LABS: Amphetamine Not Detected (NotDetected); Barbiturates Screen Detected (NotDetected); Benzodiazepine Screen Not Detected (NotDetected); Cocaine Metabolite Screen Not Detected (NotDetected); Methadone Not Detected (NotDetected); Methamphetamine Not Detected (NotDetected); Opiate Screen Not Detected (NotDetected); Oxycodone Screen Not Detected (NotDetected); Phencyclidine (PCP) Not Detected (NotDetected); THC/Cannabinoid Screen Not Detected (NotDetected); Tricyclic Screen Not Detected (NotDetected)
== END 2021-12-20 03:10 | disposition home or self-care (01) ==
LOC: ERS 22:21
DX: R53.1 Weakness (principal); E11.9 Type 2 diabetes mellitus without complications; E78.5 Hyperlipidemia, unspecified; I10 Essential (primary) hypertension; F17.290 Nicotine dependence, other tobacco product, uncomplicated; Z79.899 Other long term (current) drug therapy
CPT/HCPCS: 36415; 36416; 70450; 71045; 80306; 80307; 81003; 81015; 82553; 83605; 84484; 93005; 96374; J0360

== ENCOUNTER 2021-12-20 08:22 | Outpatient (CLI) | payer MEDICARE, OTHER ==
[2021-12-20] MEDS ORDERED: Iopamidol-370 76% 500 ML 1 ML ONE (11:07)
== END 2021-12-20 08:23 | disposition home or self-care (01) ==
LOC: BICCT 08:22
PROVIDERS: ATTEND Internal Medicine Cardiovascular Disease
DX: I65.23 Occlusion and stenosis of bilateral carotid arteries (principal)
CPT/HCPCS: 70498; 82565; Q9967

== ENCOUNTER 2022-01-29 09:54 | Outpatient (CLI) | payer MEDICARE, OTHER | END 2022-01-29 09:55 | disposition home or self-care (01) | LOC: RAD 09:54 | PROVIDERS: ATTEND Internal Medicine Critical Care Medicine | DX: R06.00 Dyspnea, unspecified (principal); R91.8 Other nonspecific abnormal finding of lung field | CPT/HCPCS: 71046 ==

== ENCOUNTER 2022-03-17 03:50 | Inpatient (IN) | payer MEDICARE ==
[2022-03-17 04:56] LABS: #Eosinphils 0.2 thou/uL (0.0-0.7); #Lymphocytes 1.9 thou/uL (1.20-3.40); #Neutrophils 8.2 thou/uL (1.40-6.50); %Basophils 0.2 % (0.0-1.0); %Eosinophils 2.1 % (0.0-10.0); %Lymphocytes 16.3 % (21.0-51.0); %Monocytes 9.1 % (0.0-10.0); %Neutrophils 72.3 % (42.0-75.0); Hemoglobin 9.8 g/dL (14.0-18.0); Mean Corpuscular HGB CONC 32.2 g/dL (32.0-36.0); Mean Corpuscular Hemoglobin 27.2 pg (27.0-31.0); Mean Corpuscular Volume 84.5 fL (78.0-98.0); Platelet Count 329 thou/uL (130-400); RBC Distribution Width 16.3 % (11.5-14.5); White Blood Cell (WBC) Count 11.4 thou/uL (4.8-10.8)
[2022-03-17 05:13] LABS: ALT (SGPT) 20 U/L (8-55); AST (SGOT) 21 U/L (5-34); Alkaline Phosphatase 118 U/L (40-110); Anion Gap 17 mmol/L (10-20); BUN (Urea Nitrogen) 22 mg/dL (8.4-25.7); Bilirubin, Total 0.2 mg/dL (0.2-1.2); Calc. Creatinine Clearance 0 mL/min (70-130); Calcium 9.2 mg/dL (7.8-10.44); Carbon Dioxide 24 mmol/L (23-31); Chloride 102 mmol/L (98-107); Estimated GFR 57; Globulin 4.5 g/dL (2.4-3.5); Glucose 94 mg/dL (83-110); Potassium 4.9 mmol/L (3.5-5.1); Protein, Total 8.5 g/dL (5.8-8.1); Sodium 138 mmol/L (136-145)
[2022-03-17] MEDS ORDERED: Nitroglycerin 2% Ointment 1 INCH/1 GM Packet ONE (05:35)
[2022-03-17] MEDS ORDERED: Aspirin Chewable 81 MG TAB ONE (05:35)
[2022-03-17] MEDS ORDERED: Sodium Chloride 0.9% 100 ML ONE (06:10)
[2022-03-17] MEDS ORDERED: Cefepime 2 GM VIAL ONE (06:10)
[2022-03-17] MEDS ORDERED: Vancomycin 1 GM/200 ML BAG ONE (06:10)
[2022-03-17 07:10] LABS: Troponin I 0.016 ng/mL (< 0.028)
[2022-03-17] MEDS ORDERED: Ondansetron PF 4 MG/2 ML Vial IVP PRN (08:58)
[2022-03-17] MEDS ORDERED: Dextrose 50% Abboject 50 ML SYRINGE SLOW IVP PRN (09:59)
[2022-03-17] MEDS ORDERED: Dextrose 5% in Water 1,000 ML IV PRN (09:59)
[2022-03-17] MEDS ORDERED: HumaLOG 300 UNITS/3 ML VIAL SC PRN (09:59)
[2022-03-17 11:09] LABS: SARS-CoV-2 NAA Rapid Test Not Detected (NotDetected)
[2022-03-17 11:38] LABS: Troponin I 0.016 ng/mL (< 0.028)
[2022-03-17] MEDS ORDERED: Enoxaparin Sodium 40 MG/0.4 ML SYRINGE SC SCH (12:15)
[2022-03-17] MEDS ORDERED: HYDROcodone/Acetaminophen 5/325 mg Tablet ONE (12:35)
[2022-03-17] MEDS ORDERED: Enoxaparin Sodium 40 MG/0.4 ML SYRINGE ONE (12:35)
[2022-03-17] MEDS ORDERED: Furosemide 20 MG/2 ML VIAL ONE (12:35)
[2022-03-17] MEDS: HYDROcodone/Acetaminophen 5/325 mg Tablet PO PRN ×2 (12:37→20:55)
[2022-03-17] MEDS ORDERED: Furosemide 20 MG/2 ML VIAL SLOW IVP SCH (14:00)
[2022-03-17 15:15] VITALS: BMI 33.5
[2022-03-17 15:19] LABS: Fluid, pH - Pleural Fld 7.41 (7.60 - 7.66)
[2022-03-17 15:28] LABS: RBC Count-Automated (BF) 56096 /cu.mm; WBC/Nucleated-Auto (BF) 1448 /cu.mm
[2022-03-17 15:29] LABS: Pleural Fluid, Protein 5.4 g/dL
[2022-03-17 16:04] LABS: BF Color Red; Body Fluid Source Pleural Fluid; Clarity Cloudy/Turbid (Clear); Tube # EDTA
[2022-03-17 16:06] LABS: BF Segmented Neutrophils 22 %; Cell Count Non Hematic 28 %; Eosinophils 1 %; Lymphocytes 49 %
[2022-03-17] MEDS ORDERED: Nitroglycerin 0.4 MG TAB (25 Tab Bottle) SL PRN (18:03)
[2022-03-17] MEDS: Mometasone/Formoterol 200/5 60 PUFF INH SCH (18:26)
[2022-03-17] MEDS: Albuterol Sulfate 2.5 mg/3 ml Neb NEB PRN (18:30)
[2022-03-17] MEDS: Atorvastatin Calcium 40 MG TAB PO SCH (20:54)
[2022-03-17] MEDS: Finasteride 5 MG TAB PO SCH (20:54)
[2022-03-17] MEDS: levETIRAcetam 500 MG TAB PO SCH (20:54)
[2022-03-17] MEDS: Tamsulosin HCl 0.4 MG CAP PO SCH (20:55)
[2022-03-17 21:20] LABS: Hemoglobin 8.4 g/dL (14.0-18.0); Mean Corpuscular HGB CONC 31.8 g/dL (32.0-36.0); Mean Corpuscular Volume 84.8 fL (78.0-98.0); Mean Platelet Volume 8.4 fL (7.4-10.4); Platelet Count 314 thou/uL (130-400); RBC Distribution Width 16.2 % (11.5-14.5); Red Blood Cell (RBC) Count 3.12 mill/uL (4.70-6.10)
[2022-03-17] MEDS ORDERED: Phenytoin Extended Release 100 MG CAP PO SCH (23:15)
[2022-03-18] MEDS: Albuterol Sulfate 2.5 mg/3 ml Neb NEB SCH ×6 (03:25→23:04)
[2022-03-18 04:22] LABS: #Eosinphils 0.1 thou/uL (0.0-0.7); #Lymphocytes 1.4 thou/uL (1.20-3.40); #Monocytes 0.9 thou/uL (0.11-0.59); #Neutrophils 7.2 thou/uL (1.40-6.50); %Basophils 0.3 % (0.0-1.0); %Eosinophils 0.8 % (0.0-10.0); %Lymphocytes 14.7 % (21.0-51.0); %Monocytes 9.5 % (0.0-10.0); %Neutrophils 74.7 % (42.0-75.0); Hemoglobin 7.6 g/dL (14.0-18.0); Mean Corpuscular Volume 84.3 fL (78.0-98.0); Mean Platelet Volume 8.7 fL (7.4-10.4); Platelet Count 305 thou/uL (130-400); RBC Distribution Width 16.4 % (11.5-14.5); Red Blood Cell (RBC) Count 2.82 mill/uL (4.70-6.10); White Blood Cell (WBC) Count 9.7 thou/uL (4.8-10.8)
[2022-03-18 04:44] LABS: Anion Gap 14 mmol/L (10-20); BUN (Urea Nitrogen) 23 mg/dL (8.4-25.7); Calc. Creatinine Clearance 54 mL/min (70-130); Calcium 8.6 mg/dL (7.8-10.44); Carbon Dioxide 27 mmol/L (23-31); Chloride 102 mmol/L (98-107); Estimated GFR 43; Glucose 143 mg/dL (83-110); Potassium 4.3 mmol/L (3.5-5.1); Sodium 139 mmol/L (136-145)
[2022-03-18 05:13] LABS: Bacteria/HPF None Seen HPF (None Seen); Bilirubin Negative (Negative); Blood, Urine Negative (Negative); Clarity Clear (Clear); Glucose, Urine (Dipstick) Normal (Negative); Ketone, Urine Trace mg/dL (Negative); Leukocyte Negative Leu/uL (Negative); Nitrite Negative (Negative); Protein, Urine (Dipstick) 10 mg/dL (Neg-Trace); RBC/HPF 0-3 HPF (0-3); Specific Gravity, Urine 1.024 (1.002-1.036); Squamous Epithelial 0-3 HPF (0-3); Urobilinogen Normal mg/dL (Less than 2); WBC/HPF 0-3 HPF (0-3)
[2022-03-18 05:15] LABS: Urine Culture Reflex No No
[2022-03-18] MEDS: Mometasone/Formoterol 200/5 60 PUFF INH SCH ×2 (06:52→18:54)
[2022-03-18] MEDS ORDERED: Enoxaparin Sodium 40 MG/0.4 ML SYRINGE SC SCH (09:00)
[2022-03-18] MEDS ORDERED: Aspirin 81 mg Enteric Coated Tablet PO SCH (09:00)
[2022-03-18] MEDS: Potassium Chloride 10 MEQ TAB PO SCH (11:07)
[2022-03-18] MEDS: metFORMIN 500 MG TAB PO SCH ×2 (11:08→17:43)
[2022-03-18] MEDS: Losartan 25 MG TAB PO SCH (11:08)
[2022-03-18] MEDS: Furosemide 20 MG TAB PO SCH ×2 (11:09→17:51)
[2022-03-18] MEDS: hydrALAZINE 25 MG TAB PO SCH ×3 (11:09→17:44)
[2022-03-18] MEDS: Amlodipine 10 MG TAB PO SCH (11:09)
[2022-03-18] MEDS: Carvedilol 25 MG TAB PO SCH ×2 (11:09→17:45)
[2022-03-18] MEDS: levETIRAcetam 500 MG TAB PO SCH ×2 (11:10→21:33)
[2022-03-18] MEDS: Ferrous Sulfate 325 MG TAB PO SCH (11:10)
[2022-03-18 12:00] LABS: Hemoglobin 7.6 g/dL (14.0-18.0); Mean Corpuscular HGB CONC 31.7 g/dL (32.0-36.0); Mean Corpuscular Hemoglobin 26.6 pg (27.0-31.0); Mean Corpuscular Volume 83.8 fL (78.0-98.0); Platelet Count 289 thou/uL (130-400); RBC Distribution Width 16.1 % (11.5-14.5); Red Blood Cell (RBC) Count 2.87 mill/uL (4.70-6.10); White Blood Cell (WBC) Count 9.7 thou/uL (4.8-10.8)
[2022-03-18] MEDS: HYDROcodone/Acetaminophen 5/325 mg Tablet PO PRN (17:50)
[2022-03-18] MEDS: Finasteride 5 MG TAB PO SCH (21:33)
[2022-03-18] MEDS: Atorvastatin Calcium 40 MG TAB PO SCH (21:33)
[2022-03-18] MEDS: Phenytoin Extended Release 100 MG CAP PO SCH (21:34)
[2022-03-18] MEDS: Tamsulosin HCl 0.4 MG CAP PO SCH (21:34)
[2022-03-19] MEDS: Albuterol Sulfate 2.5 mg/3 ml Neb NEB SCH ×6 (03:20→22:10)
[2022-03-19 04:57] LABS: #Eosinphils 0.2 thou/uL (0.0-0.7); #Lymphocytes 1.6 thou/uL (1.20-3.40); #Neutrophils 6.6 thou/uL (1.40-6.50); %Basophils 0.3 % (0.0-1.0); %Eosinophils 1.8 % (0.0-10.0); %Lymphocytes 17.2 % (21.0-51.0); %Monocytes 10.1 % (0.0-10.0); %Neutrophils 70.5 % (42.0-75.0); Hemoglobin 7.2 g/dL (14.0-18.0); Mean Corpuscular HGB CONC 32.1 g/dL (32.0-36.0); Mean Corpuscular Volume 84.1 fL (78.0-98.0); Mean Platelet Volume 8.7 fL (7.4-10.4); Platelet Count 293 thou/uL (130-400); RBC Distribution Width 16.2 % (11.5-14.5); Red Blood Cell (RBC) Count 2.68 mill/uL (4.70-6.10); White Blood Cell (WBC) Count 9.4 thou/uL (4.8-10.8)
[2022-03-19 05:19] LABS: ALT (SGPT) 16 U/L (8-55); AST (SGOT) 16 U/L (5-34); Albumin 3.4 g/dL (3.4-4.8); Alkaline Phosphatase 96 U/L (40-110); Anion Gap 15 mmol/L (10-20); BUN (Urea Nitrogen) 22 mg/dL (8.4-25.7); Bilirubin, Total 0.2 mg/dL (0.2-1.2); Calc. Creatinine Clearance 59 mL/min (70-130); Calcium 8.6 mg/dL (7.8-10.44); Carbon Dioxide 26 mmol/L (23-31); Chloride 100 mmol/L (98-107); Estimated GFR 48; Globulin 3.7 g/dL (2.4-3.5); Glucose 119 mg/dL (83-110); Potassium 4.3 mmol/L (3.5-5.1); Protein, Total 7.1 g/dL (5.8-8.1); Sodium 137 mmol/L (136-145)
[2022-03-19] MEDS: Mometasone/Formoterol 200/5 60 PUFF INH SCH ×2 (05:25→18:35)
[2022-03-19] MEDS: Potassium Chloride 10 MEQ TAB PO SCH (07:56)
[2022-03-19] MEDS: Amlodipine 10 MG TAB PO SCH (07:56)
[2022-03-19] MEDS: Ferrous Sulfate 325 MG TAB PO SCH (07:56)
[2022-03-19] MEDS: metFORMIN 500 MG TAB PO SCH ×2 (07:56→16:53)
[2022-03-19] MEDS: levETIRAcetam 500 MG TAB PO SCH ×2 (07:56→20:33)
[2022-03-19] MEDS: hydrALAZINE 25 MG TAB PO SCH ×3 (07:57→16:54)
[2022-03-19] MEDS: Carvedilol 25 MG TAB PO SCH ×2 (07:57→16:53)
[2022-03-19] MEDS: Furosemide 20 MG TAB PO SCH ×2 (07:57→16:53)
[2022-03-19] MEDS: Losartan 25 MG TAB PO SCH (07:57)
[2022-03-19] MEDS: Enoxaparin Sodium 40 MG/0.4 ML SYRINGE SC SCH (08:02)
[2022-03-19] MEDS: Finasteride 5 MG TAB PO SCH (20:33)
[2022-03-19] MEDS: Atorvastatin Calcium 40 MG TAB PO SCH (20:33)
[2022-03-19] MEDS: Tamsulosin HCl 0.4 MG CAP PO SCH (20:33)
[2022-03-19] MEDS: Phenytoin Extended Release 100 MG CAP PO SCH (20:33)
[2022-03-20] MEDS: Albuterol Sulfate 2.5 mg/3 ml Neb NEB SCH ×6 (03:36→22:16)
[2022-03-20 04:27] LABS: #Eosinphils 0.2 thou/uL (0.0-0.7); #Lymphocytes 1.6 thou/uL (1.20-3.40); #Monocytes 1.1 thou/uL (0.11-0.59); #Neutrophils 7.7 thou/uL (1.40-6.50); %Basophils 0.1 % (0.0-1.0); %Eosinophils 1.6 % (0.0-10.0); %Lymphocytes 14.8 % (21.0-51.0); %Monocytes 10.6 % (0.0-10.0); %Neutrophils 72.9 % (42.0-75.0); Hemoglobin 7.8 g/dL (14.0-18.0); Mean Corpuscular HGB CONC 31.6 g/dL (32.0-36.0); Mean Corpuscular Hemoglobin 26.4 pg (27.0-31.0); Mean Corpuscular Volume 83.3 fL (78.0-98.0); Mean Platelet Volume 9.1 fL (7.4-10.4); Platelet Count 321 thou/uL (130-400); RBC Distribution Width 16.5 % (11.5-14.5); Red Blood Cell (RBC) Count 2.95 mill/uL (4.70-6.10); White Blood Cell (WBC) Count 10.6 thou/uL (4.8-10.8)
[2022-03-20 04:46] LABS: ALT (SGPT) 24 U/L (8-55); AST (SGOT) 25 U/L (5-34); Albumin 3.7 g/dL (3.4-4.8); Alkaline Phosphatase 107 U/L (40-110); Anion Gap 18 mmol/L (10-20); BUN (Urea Nitrogen) 23 mg/dL (8.4-25.7); Bilirubin, Total 0.3 mg/dL (0.2-1.2); Calc. Creatinine Clearance 61 mL/min (70-130); Calcium 9.2 mg/dL (7.8-10.44); Carbon Dioxide 24 mmol/L (23-31); Chloride 100 mmol/L (98-107); Estimated GFR 50; Glucose 131 mg/dL (83-110); Potassium 4.5 mmol/L (3.5-5.1); Protein, Total 7.7 g/dL (5.8-8.1); Sodium 137 mmol/L (136-145)
[2022-03-20] MEDS: Mometasone/Formoterol 200/5 60 PUFF INH SCH ×2 (06:18→19:17)
[2022-03-20] MEDS: Losartan 25 MG TAB PO SCH (08:17)
[2022-03-20] MEDS: metFORMIN 500 MG TAB PO SCH ×2 (08:17→17:12)
[2022-03-20] MEDS: levETIRAcetam 500 MG TAB PO SCH ×2 (08:17→21:24)
[2022-03-20] MEDS: Furosemide 20 MG TAB PO SCH ×2 (08:18→17:12)
[2022-03-20] MEDS: Amlodipine 10 MG TAB PO SCH (08:18)
[2022-03-20] MEDS: Potassium Chloride 10 MEQ TAB PO SCH (08:19)
[2022-03-20] MEDS: hydrALAZINE 25 MG TAB PO SCH ×3 (08:19→17:13)
[2022-03-20] MEDS: Ferrous Sulfate 325 MG TAB PO SCH (08:19)
[2022-03-20] MEDS: Carvedilol 25 MG TAB PO SCH ×2 (08:20→17:13)
[2022-03-20] MEDS: Phenytoin Extended Release 100 MG CAP PO SCH (21:24)
[2022-03-20] MEDS: Atorvastatin Calcium 40 MG TAB PO SCH (21:25)
[2022-03-20] MEDS: Tamsulosin HCl 0.4 MG CAP PO SCH (21:25)
[2022-03-20] MEDS: Finasteride 5 MG TAB PO SCH (21:25)
[2022-03-21] MEDS: Albuterol Sulfate 2.5 mg/3 ml Neb NEB SCH ×6 (01:44→23:41)
[2022-03-21] MEDS: Mometasone/Formoterol 200/5 60 PUFF INH SCH ×2 (07:04→18:26)
[2022-03-21 07:38] LABS: ALT (SGPT) 24 U/L (8-55); AST (SGOT) 24 U/L (5-34); Albumin 3.4 g/dL (3.4-4.8); Alkaline Phosphatase 99 U/L (40-110); Anion Gap 14 mmol/L (10-20); BUN (Urea Nitrogen) 26 mg/dL (8.4-25.7); Bilirubin, Total 0.3 mg/dL (0.2-1.2); Calc. Creatinine Clearance 57 mL/min (70-130); Calcium 8.6 mg/dL (7.8-10.44); Carbon Dioxide 25 mmol/L (23-31); Chloride 101 mmol/L (98-107); Estimated GFR 45; Globulin 3.9 g/dL (2.4-3.5); Glucose 122 mg/dL (83-110); Potassium 4.2 mmol/L (3.5-5.1); Protein, Total 7.3 g/dL (5.8-8.1); Sodium 136 mmol/L (136-145)
[2022-03-21] MEDS: levETIRAcetam 500 MG TAB PO SCH ×2 (08:33→20:59)
[2022-03-21] MEDS: hydrALAZINE 25 MG TAB PO SCH ×3 (08:33→17:04)
[2022-03-21] MEDS: Furosemide 20 MG TAB PO SCH ×2 (08:33→17:04)
[2022-03-21] MEDS: Losartan 25 MG TAB PO SCH (08:34)
[2022-03-21] MEDS: Ferrous Sulfate 325 MG TAB PO SCH ×2 (08:34→08:35)
[2022-03-21] MEDS: metFORMIN 500 MG TAB PO SCH ×2 (08:34→17:04)
[2022-03-21] MEDS: Carvedilol 25 MG TAB PO SCH ×2 (08:35→17:04)
[2022-03-21] MEDS: Potassium Chloride 10 MEQ TAB PO SCH (08:35)
[2022-03-21] MEDS: Amlodipine 10 MG TAB PO SCH (08:36)
[2022-03-21] MEDS: Enoxaparin Sodium 40 MG/0.4 ML SYRINGE SC SCH (08:36)
[2022-03-21] MEDS ORDERED: Communication Order-Pharmacy FS SCH (14:45)
[2022-03-21 15:48] LABS: #Eosinphils 0.2 thou/uL (0.0-0.7); #Lymphocytes 1.4 thou/uL (1.20-3.40); #Monocytes 1.1 thou/uL (0.11-0.59); %Basophils 0.3 % (0.0-1.0); %Eosinophils 1.7 % (0.0-10.0); %Lymphocytes 12.7 % (21.0-51.0); %Monocytes 10.4 % (0.0-10.0); %Neutrophils 74.8 % (42.0-75.0); Hemoglobin 7.4 g/dL (14.0-18.0); Mean Corpuscular HGB CONC 32.1 g/dL (32.0-36.0); Mean Corpuscular Hemoglobin 26.6 pg (27.0-31.0); Mean Corpuscular Volume 82.8 fL (78.0-98.0); Platelet Count 371 thou/uL (130-400); RBC Distribution Width 16.2 % (11.5-14.5); Red Blood Cell (RBC) Count 2.79 mill/uL (4.70-6.10); White Blood Cell (WBC) Count 10.7 thou/uL (4.8-10.8)
[2022-03-21] MEDS: Phenytoin Extended Release 100 MG CAP PO SCH (20:57)
[2022-03-21] MEDS: Tamsulosin HCl 0.4 MG CAP PO SCH (20:58)
[2022-03-21] MEDS: Finasteride 5 MG TAB PO SCH (20:59)
[2022-03-21] MEDS: Atorvastatin Calcium 40 MG TAB PO SCH (20:59)
[2022-03-22] MEDS: Albuterol Sulfate 2.5 mg/3 ml Neb NEB SCH ×6 (02:20→22:43)
[2022-03-22 04:37] LABS: #Eosinphils 0.2 thou/uL (0.0-0.7); #Lymphocytes 1.2 thou/uL (1.20-3.40); #Monocytes 1.1 thou/uL (0.11-0.59); #Neutrophils 8.8 thou/uL (1.40-6.50); %Basophils 0.2 % (0.0-1.0); %Eosinophils 1.7 % (0.0-10.0); %Lymphocytes 10.6 % (21.0-51.0); %Monocytes 9.9 % (0.0-10.0); %Neutrophils 77.5 % (42.0-75.0); Hemoglobin 7.6 g/dL (14.0-18.0); Mean Corpuscular HGB CONC 31.8 g/dL (32.0-36.0); Mean Corpuscular Hemoglobin 26.3 pg (27.0-31.0); Mean Corpuscular Volume 82.7 fL (78.0-98.0); Platelet Count 387 thou/uL (130-400); Red Blood Cell (RBC) Count 2.89 mill/uL (4.70-6.10); White Blood Cell (WBC) Count 11.3 thou/uL (4.8-10.8)
[2022-03-22 05:03] LABS: ALT (SGPT) 34 U/L (8-55); AST (SGOT) 30 U/L (5-34); Albumin 3.6 g/dL (3.4-4.8); Alkaline Phosphatase 98 U/L (40-110); Anion Gap 16 mmol/L (10-20); BUN (Urea Nitrogen) 29 mg/dL (8.4-25.7); Bilirubin, Total 0.3 mg/dL (0.2-1.2); Calc. Creatinine Clearance 57 mL/min (70-130); Carbon Dioxide 24 mmol/L (23-31); Chloride 100 mmol/L (98-107); Estimated GFR 45; Globulin 4.1 g/dL (2.4-3.5); Glucose 124 mg/dL (83-110); Potassium 4.5 mmol/L (3.5-5.1); Protein, Total 7.7 g/dL (5.8-8.1); Sodium 135 mmol/L (136-145)
[2022-03-22] MEDS: Mometasone/Formoterol 200/5 60 PUFF INH SCH ×2 (07:16→18:33)
[2022-03-22] MEDS: metFORMIN 500 MG TAB PO SCH ×2 (08:45→16:49)
[2022-03-22] MEDS: Furosemide 20 MG TAB PO SCH (08:46)
[2022-03-22] MEDS: Losartan 25 MG TAB PO SCH (08:46)
[2022-03-22] MEDS: Carvedilol 25 MG TAB PO SCH ×2 (08:46→16:50)
[2022-03-22] MEDS: Amlodipine 10 MG TAB PO SCH (08:47)
[2022-03-22] MEDS: Potassium Chloride 10 MEQ TAB PO SCH (08:47)
[2022-03-22] MEDS: Enoxaparin Sodium 40 MG/0.4 ML SYRINGE SC SCH (08:47)
[2022-03-22] MEDS: hydrALAZINE 25 MG TAB PO SCH ×3 (08:47→16:50)
[2022-03-22] MEDS: levETIRAcetam 500 MG TAB PO SCH ×2 (08:47→20:42)
[2022-03-22 09:02] LABS: #Eosinphils 0.2 thou/uL (0.0-0.7); #Lymphocytes 1.4 thou/uL (1.20-3.40); #Neutrophils 7.5 thou/uL (1.40-6.50); %Basophils 0.4 % (0.0-1.0); %Eosinophils 1.6 % (0.0-10.0); %Lymphocytes 13.7 % (21.0-51.0); %Monocytes 10.1 % (0.0-10.0); %Neutrophils 74.2 % (42.0-75.0); Hemoglobin 7.4 g/dL (14.0-18.0); Mean Corpuscular HGB CONC 31.8 g/dL (32.0-36.0); Mean Corpuscular Hemoglobin 26.4 pg (27.0-31.0); Mean Platelet Volume 7.7 fL (7.4-10.4); Platelet Count 389 thou/uL (130-400); RBC Distribution Width 16.2 % (11.5-14.5); White Blood Cell (WBC) Count 10.1 thou/uL (4.8-10.8)
[2022-03-22 09:19] LABS: Anion Gap 16 mmol/L (10-20); BUN (Urea Nitrogen) 29 mg/dL (8.4-25.7); Calc. Creatinine Clearance 61 mL/min (70-130); Calcium 8.9 mg/dL (7.8-10.44); Carbon Dioxide 23 mmol/L (23-31); Chloride 100 mmol/L (98-107); Estimated GFR 49; Glucose 118 mg/dL (83-110); Potassium 4.2 mmol/L (3.5-5.1); Sodium 135 mmol/L (136-145)
[2022-03-22] MEDS ORDERED: EPINEPHrine 1 MG/ML AMP IVP PRN (12:42)
[2022-03-22] MEDS ORDERED: Furosemide 20 MG/2 ML VIAL IVP SCH (12:45)
[2022-03-22] MEDS ORDERED: diphenhydrAMINE 25 MG CAP PO SCH (12:45)
[2022-03-22] MEDS ORDERED: Acetaminophen 325 MG TAB PO SCH (12:45)
[2022-03-22] MEDS ORDERED: Furosemide 40 MG/4 ML VIAL SLOW IVP SCH (18:00)
[2022-03-22 18:17] LABS: Hemoglobin 8.6 g/dL (14.0-18.0); Platelet Count 379 thou/uL (130-400)
[2022-03-22] MEDS: Atorvastatin Calcium 40 MG TAB PO SCH (20:41)
[2022-03-22] MEDS: Phenytoin Extended Release 100 MG CAP PO SCH (20:42)
[2022-03-22] MEDS: Finasteride 5 MG TAB PO SCH (20:42)
[2022-03-22] MEDS: Tamsulosin HCl 0.4 MG CAP PO SCH (20:42)
[2022-03-23] MEDS: Albuterol Sulfate 2.5 mg/3 ml Neb NEB SCH ×2 (02:27→06:50)
[2022-03-23] MEDS: Mometasone/Formoterol 200/5 60 PUFF INH SCH ×2 (06:48→19:27)
[2022-03-23] MEDS ORDERED: Fluticasone Propionate Nasal Spray 16 gm Bottle NASAL PRN (07:38)
[2022-03-23] MEDS ORDERED: EPINEPHrine 1 MG/ML AMP IM PRN (07:39)
[2022-03-23 08:16] LABS: Anion Gap 16 mmol/L (10-20); BUN (Urea Nitrogen) 29 mg/dL (8.4-25.7); Calc. Creatinine Clearance 59 mL/min (70-130); Calcium 8.9 mg/dL (7.8-10.44); Carbon Dioxide 21 mmol/L (23-31); Chloride 101 mmol/L (98-107); Estimated GFR 47; Glucose 128 mg/dL (83-110); Potassium 4.4 mmol/L (3.5-5.1); Sodium 134 mmol/L (136-145)
[2022-03-23] MEDS: Carvedilol 25 MG TAB PO SCH ×2 (09:02→18:04)
[2022-03-23] MEDS: Ferrous Sulfate 325 MG TAB PO SCH (09:02)
[2022-03-23] MEDS: Amlodipine 10 MG TAB PO SCH (09:03)
[2022-03-23] MEDS: hydrALAZINE 25 MG TAB PO SCH ×3 (09:03→18:04)
[2022-03-23] MEDS: Furosemide 20 MG TAB PO SCH (09:04)
[2022-03-23] MEDS: Enoxaparin Sodium 40 MG/0.4 ML SYRINGE SC SCH (09:04)
[2022-03-23] MEDS: levETIRAcetam 500 MG TAB PO SCH ×2 (09:05→21:59)
[2022-03-23] MEDS: Loratadine 10 MG TAB PO SCH (09:05)
[2022-03-23] MEDS: Losartan 25 MG TAB PO SCH (09:06)
[2022-03-23] MEDS: Potassium Chloride 10 MEQ TAB PO SCH (09:06)
[2022-03-23] MEDS ORDERED: Furosemide 20 MG/2 ML VIAL SLOW IVP SCH (13:00)
[2022-03-23 18:22] LABS: Hemoglobin 9.2 g/dL (14.0-18.0); Platelet Count 387 thou/uL (130-400)
[2022-03-23] MEDS ORDERED: Furosemide 40 MG/4 ML VIAL SLOW IVP SCH (19:00)
[2022-03-23] MEDS ORDERED: Furosemide 20 MG/2 ML VIAL IVP SCH (20:00)
[2022-03-23] MEDS: Tamsulosin HCl 0.4 MG CAP PO SCH (21:59)
[2022-03-23] MEDS: Finasteride 5 MG TAB PO SCH (21:59)
[2022-03-23] MEDS: Phenytoin Extended Release 100 MG CAP PO SCH (21:59)
[2022-03-23] MEDS: Atorvastatin Calcium 40 MG TAB PO SCH (22:00)
[2022-03-23] MEDS: Albuterol Sulfate 2.5 mg/3 ml Neb NEB PRN (22:32)
[2022-03-24] MEDS: Albuterol Sulfate 2.5 mg/3 ml Neb NEB PRN ×5 (02:37→20:59)
[2022-03-24 04:56] LABS: #Eosinphils 0.1 thou/uL (0.0-0.7); #Lymphocytes 1.2 thou/uL (1.20-3.40); #Monocytes 1.4 thou/uL (0.11-0.59); %Basophils 0.4 % (0.0-1.0); %Eosinophils 1.3 % (0.0-10.0); %Lymphocytes 10.1 % (21.0-51.0); %Monocytes 11.7 % (0.0-10.0); %Neutrophils 76.5 % (42.0-75.0); Hemoglobin 9.8 g/dL (14.0-18.0); Mean Corpuscular HGB CONC 32.9 g/dL (32.0-36.0); Mean Corpuscular Hemoglobin 27.4 pg (27.0-31.0); Mean Corpuscular Volume 83.1 fL (78.0-98.0); Mean Platelet Volume 7.4 fL (7.4-10.4); Platelet Count 363 thou/uL (130-400); RBC Distribution Width 16.8 % (11.5-14.5); Red Blood Cell (RBC) Count 3.59 mill/uL (4.70-6.10); White Blood Cell (WBC) Count 11.7 thou/uL (4.8-10.8)
[2022-03-24 05:19] LABS: Anion Gap 17 mmol/L (10-20); BUN (Urea Nitrogen) 27 mg/dL (8.4-25.7); Calc. Creatinine Clearance 61 mL/min (70-130); Calcium 9.1 mg/dL (7.8-10.44); Carbon Dioxide 21 mmol/L (23-31); Chloride 101 mmol/L (98-107); Estimated GFR 49; Glucose 126 mg/dL (83-110); Magnesium 2.1 mg/dL (1.6-2.6); Potassium 4.1 mmol/L (3.5-5.1); Sodium 135 mmol/L (136-145)
[2022-03-24] MEDS: hydrALAZINE 25 MG TAB PO SCH ×3 (05:39→17:13)
[2022-03-24] MEDS: Loratadine 10 MG TAB PO SCH (05:40)
[2022-03-24] MEDS: Potassium Chloride 10 MEQ TAB PO SCH (05:40)
[2022-03-24] MEDS: Furosemide 20 MG TAB PO SCH (05:41)
[2022-03-24] MEDS: levETIRAcetam 500 MG TAB PO SCH ×2 (05:41→22:05)
[2022-03-24] MEDS: Amlodipine 10 MG TAB PO SCH (05:41)
[2022-03-24] MEDS: Losartan 25 MG TAB PO SCH (05:41)
[2022-03-24] MEDS: Carvedilol 25 MG TAB PO SCH ×2 (05:42→17:13)
[2022-03-24] MEDS ORDERED: Nitroglycerin 100MG/250ML BOT 250 ML ONE (06:37)
[2022-03-24] MEDS ORDERED: Lidocaine 1% PF 5 ML VIAL ONE (06:37)
[2022-03-24] MEDS ORDERED: Heparin 10,000 UNITS/ 10 ML VIAL ONE (06:37)
[2022-03-24] MEDS ORDERED: Verapamil 5 MG/2 ML VIAL ONE (06:37)
[2022-03-24] MEDS: Mometasone/Formoterol 200/5 60 PUFF INH SCH ×2 (06:44→20:59)
[2022-03-24] MEDS ORDERED: Midazolam HCl 2 mg/2 ml Vial ONE (08:01)
[2022-03-24] MEDS ORDERED: Morphine 4 MG/ML VIAL ONE (08:20)
[2022-03-24] MEDS ORDERED: Sodium Chloride 0.9% 200 ML IV PRN (09:22)
[2022-03-24] MEDS ORDERED: Acetaminophen/Codeine 30-300mg Tablet PO PRN (09:22)
[2022-03-24] MEDS ORDERED: Nitroglycerin 0.4 MG TAB (25 Tab Bottle) SL PRN (09:22)
[2022-03-24] MEDS ORDERED: Iopamidol 370 76% 100 ML VIAL ONE (10:30)
[2022-03-24] MEDS: Ferrous Sulfate 325 MG TAB PO SCH (11:27)
[2022-03-24] MEDS ORDERED: Furosemide 40 MG/4 ML VIAL SLOW IVP SCH (18:15)
[2022-03-24] MEDS: Phenytoin Extended Release 100 MG CAP PO SCH (22:05)
[2022-03-24] MEDS: Finasteride 5 MG TAB PO SCH (22:05)
[2022-03-24] MEDS: Atorvastatin Calcium 40 MG TAB PO SCH (22:06)
[2022-03-24] MEDS: Tamsulosin HCl 0.4 MG CAP PO SCH (22:06)
[2022-03-25] MEDS: Albuterol Sulfate 2.5 mg/3 ml Neb NEB PRN ×3 (01:19→19:23)
[2022-03-25 04:03] LABS: #Lymphocytes 0.7 thou/uL (1.20-3.40); #Neutrophils 10.5 thou/uL (1.40-6.50); %Eosinophils 0.2 % (0.0-10.0); %Lymphocytes 5.6 % (21.0-51.0); %Monocytes 8.1 % (0.0-10.0); %Neutrophils 86.1 % (42.0-75.0); Hemoglobin 9.4 g/dL (14.0-18.0); Mean Corpuscular HGB CONC 31.8 g/dL (32.0-36.0); Mean Corpuscular Hemoglobin 26.7 pg (27.0-31.0); Mean Corpuscular Volume 83.9 fL (78.0-98.0); Mean Platelet Volume 7.4 fL (7.4-10.4); Platelet Count 386 thou/uL (130-400); RBC Distribution Width 17.4 % (11.5-14.5); Red Blood Cell (RBC) Count 3.54 mill/uL (4.70-6.10); White Blood Cell (WBC) Count 12.1 thou/uL (4.8-10.8)
[2022-03-25 04:23] LABS: Anion Gap 17 mmol/L (10-20); BUN (Urea Nitrogen) 34 mg/dL (8.4-25.7); Calc. Creatinine Clearance 52 mL/min (70-130); Calcium 9.4 mg/dL (7.8-10.44); Carbon Dioxide 22 mmol/L (23-31); Chloride 101 mmol/L (98-107); Estimated GFR 40; Glucose 136 mg/dL (83-110); Sodium 135 mmol/L (136-145)
[2022-03-25] MEDS: Mometasone/Formoterol 200/5 60 PUFF INH SCH ×2 (06:40→19:23)
[2022-03-25] MEDS: Amlodipine 10 MG TAB PO SCH ×2 (08:41→16:51)
[2022-03-25] MEDS: hydrALAZINE 25 MG TAB PO SCH ×3 (08:41→16:51)
[2022-03-25] MEDS: Furosemide 20 MG TAB PO SCH (08:41)
[2022-03-25] MEDS: Ferrous Sulfate 325 MG TAB PO SCH ×2 (08:41→16:51)
[2022-03-25] MEDS: Carvedilol 25 MG TAB PO SCH ×2 (08:41→16:51)
[2022-03-25] MEDS: levETIRAcetam 500 MG TAB PO SCH ×2 (08:42→21:05)
[2022-03-25] MEDS: Losartan 25 MG TAB PO SCH (08:42)
[2022-03-25] MEDS: Potassium Chloride 10 MEQ TAB PO SCH (08:42)
[2022-03-25] MEDS: Loratadine 10 MG TAB PO SCH ×2 (08:42→16:50)
[2022-03-25] MEDS ORDERED: SUGAMMADEX SODIUM 200 MG/2 ML VIAL ONE (10:30)
[2022-03-25] MEDS ORDERED: fentaNYL Citrate/PF 100 MCG/2 ML SYRINGE ONE (10:30)
[2022-03-25] MEDS ORDERED: Phenylephrine 10 MG/ML VIAL ONE (11:55)
[2022-03-25] MEDS ORDERED: Lidocaine 1% MPF 2 ML VIAL ONE (11:55)
[2022-03-25] MEDS ORDERED: Rocuronium Bromide 10 MG/ML (10ML VIAL) ONE (11:55)
[2022-03-25] MEDS ORDERED: PROPOFOL 200 MG/20 ML VIAL ONE (11:55)
[2022-03-25] MEDS ORDERED: Ondansetron PF 4 MG/2 ML Vial ONE (11:55)
[2022-03-25] MEDS ORDERED: Promethazine HCl 25 MG/ML VIAL IM PRN (13:41)
[2022-03-25] MEDS ORDERED: Ondansetron HCl/PF 4 MG/2 ML Vial IVP PRN (13:41)
[2022-03-25] MEDS ORDERED: Promethazine HCl 25 MG/ML VIAL IVPB PRN (13:41)
[2022-03-25] MEDS ORDERED: traMADol HCl 50 MG TAB PO PRN (13:55)
[2022-03-25] MEDS: Tamsulosin HCl 0.4 MG CAP PO SCH (21:05)
[2022-03-25] MEDS: Phenytoin Extended Release 100 MG CAP PO SCH (21:05)
[2022-03-25] MEDS: Finasteride 5 MG TAB PO SCH (21:05)
[2022-03-25] MEDS: Atorvastatin Calcium 40 MG TAB PO SCH (21:05)
[2022-03-26] MEDS: Albuterol Sulfate 2.5 mg/3 ml Neb NEB PRN ×2 (03:55→18:43)
[2022-03-26] MEDS: HYDROcodone/Acetaminophen 5/325 mg Tablet PO PRN ×2 (03:56→12:48)
[2022-03-26] MEDS: Mometasone/Formoterol 200/5 60 PUFF INH SCH ×2 (06:15→18:44)
[2022-03-26] MEDS: levETIRAcetam 500 MG TAB PO SCH ×2 (12:51→20:33)
[2022-03-26] MEDS: Amlodipine 10 MG TAB PO SCH (12:51)
[2022-03-26] MEDS: Ferrous Sulfate 325 MG TAB PO SCH (12:52)
[2022-03-26] MEDS: Loratadine 10 MG TAB PO SCH (12:52)
[2022-03-26] MEDS: Furosemide 20 MG TAB PO SCH (12:53)
[2022-03-26] MEDS: hydrALAZINE 25 MG TAB PO SCH ×3 (12:53→18:26)
[2022-03-26] MEDS: Carvedilol 25 MG TAB PO SCH ×2 (12:53→18:26)
[2022-03-26] MEDS: Finasteride 5 MG TAB PO SCH (20:33)
[2022-03-26] MEDS: Atorvastatin Calcium 40 MG TAB PO SCH (20:33)
[2022-03-26] MEDS: Tamsulosin HCl 0.4 MG CAP PO SCH (20:33)
[2022-03-26] MEDS: Phenytoin Extended Release 100 MG CAP PO SCH (20:33)
[2022-03-26] MEDS ORDERED: Dexamethasone 10 MG in Sodium Chloride 0.9% 50 ML IVPB SCH (22:00)
[2022-03-27] MEDS: Albuterol Sulfate 2.5 mg/3 ml Neb NEB PRN ×3 (01:25→18:28)
[2022-03-27] MEDS: Acetaminophen/Codeine 30-300mg Tablet PO PRN ×2 (03:15→20:32)
[2022-03-27 04:43] LABS: #Lymphocytes 0.7 thou/uL (1.20-3.40); #Monocytes 0.8 thou/uL (0.11-0.59); #Neutrophils 9.3 thou/uL (1.40-6.50); %Basophils 0.1 % (0.0-1.0); %Eosinophils 0.2 % (0.0-10.0); %Lymphocytes 6.2 % (21.0-51.0); %Monocytes 7.4 % (0.0-10.0); %Neutrophils 86.1 % (42.0-75.0); Hemoglobin 8.3 g/dL (14.0-18.0); Mean Corpuscular HGB CONC 32.5 g/dL (32.0-36.0); Mean Corpuscular Hemoglobin 27.7 pg (27.0-31.0); Mean Platelet Volume 7.4 fL (7.4-10.4); Platelet Count 369 thou/uL (130-400); RBC Distribution Width 17.2 % (11.5-14.5); Red Blood Cell (RBC) Count 2.99 mill/uL (4.70-6.10); White Blood Cell (WBC) Count 10.8 thou/uL (4.8-10.8)
[2022-03-27 05:09] LABS: Anion Gap 16 mmol/L (10-20); BUN (Urea Nitrogen) 35 mg/dL (8.4-25.7); Calc. Creatinine Clearance 67 mL/min (70-130); Calcium 8.7 mg/dL (7.8-10.44); Carbon Dioxide 23 mmol/L (23-31); Chloride 103 mmol/L (98-107); Estimated GFR 57; Glucose 137 mg/dL (83-110); Potassium 4.6 mmol/L (3.5-5.1); Sodium 137 mmol/L (136-145)
[2022-03-27] MEDS: Mometasone/Formoterol 200/5 60 PUFF INH SCH ×2 (06:40→18:33)
[2022-03-27] MEDS: Ferrous Sulfate 325 MG TAB PO SCH (09:18)
[2022-03-27] MEDS: Furosemide 20 MG TAB PO SCH (09:18)
[2022-03-27] MEDS: hydrALAZINE 25 MG TAB PO SCH ×3 (09:18→17:26)
[2022-03-27] MEDS: levETIRAcetam 500 MG TAB PO SCH ×2 (09:18→20:32)
[2022-03-27] MEDS: Carvedilol 25 MG TAB PO SCH ×2 (09:19→17:26)
[2022-03-27] MEDS: Loratadine 10 MG TAB PO SCH (09:19)
[2022-03-27] MEDS: Amlodipine 10 MG TAB PO SCH (09:19)
[2022-03-27] MEDS: Atorvastatin Calcium 40 MG TAB PO SCH (20:31)
[2022-03-27] MEDS: Phenytoin Extended Release 100 MG CAP PO SCH (20:32)
[2022-03-27] MEDS: Tamsulosin HCl 0.4 MG CAP PO SCH (20:32)
[2022-03-27] MEDS: Finasteride 5 MG TAB PO SCH (20:32)
[2022-03-28] MEDS: Acetaminophen/Codeine 30-300mg Tablet PO PRN ×2 (03:21→10:29)
[2022-03-28] MEDS: Mometasone/Formoterol 200/5 60 PUFF INH SCH ×2 (07:44→18:30)
[2022-03-28] MEDS: Amlodipine 10 MG TAB PO SCH (10:28)
[2022-03-28] MEDS: levETIRAcetam 500 MG TAB PO SCH ×2 (10:28→21:50)
[2022-03-28] MEDS: Ferrous Sulfate 325 MG TAB PO SCH (10:28)
[2022-03-28] MEDS: Carvedilol 25 MG TAB PO SCH ×2 (10:28→18:31)
[2022-03-28] MEDS: Furosemide 20 MG TAB PO SCH (10:28)
[2022-03-28] MEDS: Loratadine 10 MG TAB PO SCH (10:29)
[2022-03-28] MEDS: hydrALAZINE 25 MG TAB PO SCH ×3 (10:29→18:31)
[2022-03-28] MEDS: Finasteride 5 MG TAB PO SCH (21:50)
[2022-03-28] MEDS: Atorvastatin Calcium 40 MG TAB PO SCH (21:50)
[2022-03-28] MEDS: Tamsulosin HCl 0.4 MG CAP PO SCH (21:50)
[2022-03-28] MEDS: Phenytoin Extended Release 100 MG CAP PO SCH (21:51)
[2022-03-29] MEDS: Mometasone/Formoterol 200/5 60 PUFF INH SCH ×2 (06:57→18:38)
[2022-03-29] MEDS: Ferrous Sulfate 325 MG TAB PO SCH (10:29)
[2022-03-29] MEDS: Carvedilol 25 MG TAB PO SCH ×2 (10:29→17:09)
[2022-03-29] MEDS: levETIRAcetam 500 MG TAB PO SCH ×3 (10:30→23:27)
[2022-03-29] MEDS: Loratadine 10 MG TAB PO SCH (10:30)
[2022-03-29] MEDS: Amlodipine 10 MG TAB PO SCH (10:30)
[2022-03-29] MEDS: hydrALAZINE 25 MG TAB PO SCH ×3 (10:30→17:09)
[2022-03-29] MEDS: Furosemide 20 MG TAB PO SCH (10:30)
[2022-03-29] MEDS: Acetaminophen/Codeine 30-300mg Tablet PO PRN (12:15)
[2022-03-29] MEDS: Phenytoin Extended Release 100 MG CAP PO SCH ×2 (22:27→23:27)
[2022-03-29] MEDS: Morphine 2 MG/ML VIAL SLOW IVP PRN (22:33)
[2022-03-29] MEDS: Tamsulosin HCl 0.4 MG CAP PO SCH (23:25)
[2022-03-29] MEDS: Atorvastatin Calcium 40 MG TAB PO SCH (23:25)
[2022-03-29] MEDS: Finasteride 5 MG TAB PO SCH (23:25)
[2022-03-30] MEDS: Morphine 2 MG/ML VIAL SLOW IVP PRN ×4 (04:56→20:33)
[2022-03-30] MEDS: Mometasone/Formoterol 200/5 60 PUFF INH SCH ×2 (06:51→19:30)
[2022-03-30] MEDS: Carvedilol 25 MG TAB PO SCH ×2 (09:13→16:25)
[2022-03-30] MEDS: Ferrous Sulfate 325 MG TAB PO SCH (09:13)
[2022-03-30] MEDS: hydrALAZINE 25 MG TAB PO SCH ×3 (09:15→16:25)
[2022-03-30] MEDS: Amlodipine 10 MG TAB PO SCH (09:15)
[2022-03-30] MEDS: levETIRAcetam 500 MG TAB PO SCH ×2 (09:16→20:32)
[2022-03-30] MEDS: Furosemide 20 MG TAB PO SCH (09:16)
[2022-03-30] MEDS: Loratadine 10 MG TAB PO SCH (09:16)
[2022-03-30] MEDS ORDERED: Lorazepam 2 MG/ML VIAL SLOW IVP PRN (13:20)
[2022-03-30] MEDS: Phenytoin Extended Release 100 MG CAP PO SCH (20:30)
[2022-03-30] MEDS: Finasteride 5 MG TAB PO SCH (20:32)
[2022-03-30] MEDS: Tamsulosin HCl 0.4 MG CAP PO SCH (20:32)
[2022-03-30] MEDS: Atorvastatin Calcium 40 MG TAB PO SCH (20:32)
[2022-03-31] MEDS: Morphine 2 MG/ML VIAL SLOW IVP PRN ×2 (00:47→10:29)
[2022-03-31] MEDS ORDERED: hydrALAZINE 25 MG TAB PO SCH (01:15)
[2022-03-31] MEDS ORDERED: hydrALAZINE 20 MG/ML VIAL SLOW IVP SCH (01:45)
[2022-03-31] MEDS: Mometasone/Formoterol 200/5 60 PUFF INH SCH ×2 (07:05→18:16)
[2022-03-31] MEDS: Furosemide 20 MG TAB PO SCH (08:41)
[2022-03-31] MEDS: hydrALAZINE 25 MG TAB PO SCH ×3 (08:42→16:43)
[2022-03-31] MEDS: Carvedilol 25 MG TAB PO SCH ×2 (08:42→16:44)
[2022-03-31] MEDS: Ferrous Sulfate 325 MG TAB PO SCH (08:42)
[2022-03-31] MEDS: Amlodipine 10 MG TAB PO SCH (08:43)
[2022-03-31] MEDS: levETIRAcetam 500 MG TAB PO SCH ×2 (08:44→21:37)
[2022-03-31] MEDS: Loratadine 10 MG TAB PO SCH (08:44)
[2022-03-31] MEDS: Acetaminophen/Codeine 30-300mg Tablet PO PRN (16:54)
[2022-03-31 21:36] VITALS: BP 135/60; TEMP 98.6
[2022-03-31] MEDS: Finasteride 5 MG TAB PO SCH (21:37)
[2022-03-31] MEDS: Tamsulosin HCl 0.4 MG CAP PO SCH (21:37)
[2022-03-31] MEDS: Atorvastatin Calcium 40 MG TAB PO SCH (21:37)
[2022-03-31] MEDS: Phenytoin Extended Release 100 MG CAP PO SCH (21:37)
== END 2022-03-31 21:45 | disposition home health service (06) | DRG 166 ==
LOC: ERS 03:50 → ERHOLD 05:52 → 2NO 14:25 → OBSVTOIN 03-19 08:40
PROVIDERS: ADMIT Student in an Organized Health Care Education/Training Program; ATTEND Student in an Organized Health Care Education/Training Program
PROC: 0W9B30Z Drainage of Left Pleural Cavity with Drainage Device, Percutaneous Approach (ICD-10-PCS; 2022-03-17)
PROC: 30233N1 Transfusion of Nonautologous Red Blood Cells into Peripheral Vein, Percutaneous Approach (ICD-10-PCS; 2022-03-22)
PROC: B2111ZZ Fluoroscopy of Multiple Coronary Arteries using Low Osmolar Contrast (ICD-10-PCS; 2022-03-24)
PROC: 0BB Respiratory System, Excision (ICD-10-PCS; principal; 2022-03-25)
PROC: 0W9B4ZZ Drainage of Left Pleural Cavity, Percutaneous Endoscopic Approach (ICD-10-PCS; 2022-03-25)
DX: C34.32 Malignant neoplasm of lower lobe, left bronchus or lung (principal); G93.41 Metabolic encephalopathy; G93.6 Cerebral edema; E87.2 Acidosis; I13.0 Hypertensive heart and chronic kidney disease with heart failure and stage 1 through stage 4 chronic kidney disease, or unspecified chronic kidney disease; I31.3 Pericardial effusion (noninflammatory); I50.32 Chronic diastolic (congestive) heart failure; J91.0 Malignant pleural effusion; N17.9 Acute kidney failure, unspecified; L76.34 Postprocedural seroma of skin and subcutaneous tissue following other procedure; J94.2 Hemothorax; E87.1 Hypo-osmolality and hyponatremia; Z66 Do not resuscitate; Z51.5 Encounter for palliative care; Z20.822 Contact with and (suspected) exposure to COVID-19; J44.9 Chronic obstructive pulmonary disease, unspecified; G40.909 Epilepsy, unspecified, not intractable, without status epilepticus; E78.00 Pure hypercholesterolemia, unspecified; H91.90 Unspecified hearing loss, unspecified ear; G30.9 Alzheimer's disease, unspecified; E11.51 Type 2 diabetes mellitus with diabetic peripheral angiopathy without gangrene; F02.80 Dementia in other diseases classified elsewhere, unspecified severity, without behavioral disturbance, psychotic disturbance, mood disturbance, and anxiety; N18.30 Chronic kidney disease, stage 3 unspecified; D63.1 Anemia in chronic kidney disease; E11.22 Type 2 diabetes mellitus with diabetic chronic kidney disease; E87.5 Hyperkalemia; I25.10 Atherosclerotic heart disease of native coronary artery without angina pectoris; N40.0 Benign prostatic hyperplasia without lower urinary tract symptoms; E66.9 Obesity, unspecified; G93.89 Other specified disorders of brain; Y83.8 Other surgical procedures as the cause of abnormal reaction of the patient, or of later complication, without mention of misadventure at the time of the procedure; Z98.890 Other specified postprocedural states; Z86.73 Personal history of transient ischemic attack (TIA), and cerebral infarction without residual deficits; Z79.899 Other long term (current) drug therapy; Z79.84 Long term (current) use of oral hypoglycemic drugs; Z79.82 Long term (current) use of aspirin; Z79.4 Long term (current) use of insulin; Z68.32 Body mass index [BMI] 32.0-32.9, adult
CPT/HCPCS: 32554; 36415; 36416; 36430; 70450; 71045; 71250; 80048; 80053; 81001; 82150; 82945; 83605; 83615; 83735; 83880; 83986; 84157; 84478; 84484; 85014; 85018; 85025; 85049; 85060; 86850; 86900; 86901; 87040; 87070; 87116; 87205; 87206; 87811; 88112; 88305; 88341; 88342; 89051; 93005; 93010; 93306; 93454; 93798; 94640; 94760; 95819; 95957; 96365; 96372; 96375; 99152; 99153; C1729; C1769; C1894; G0378; J0692; J1100; J1644; J1650; J1815; J1940; J2250; J2270; J2370; J2405; J2704; J3370; J3490; J7611; J7620; P9016; Q9967